=== PATIENT | male | born 1950 | race Caucasian/White ===

== ENCOUNTER → 2017-07-01 08:20 | Outpatient (CLI) | payer OTHER, SELFPAY ==
[2017-07-01 10:48] LABS: AST(SGOT) 17 U/L (15-37); Alanine Aminotransfer ALT/SGPT 26 U/L (16-61); Albumin, Serum 3.7 g/dL (3.2-5.0); Alkaline Phosphatase 44 U/L (45-117); Anion Gap 7 (5-15); BUN 9 mg/dL (7-18); BUN/Creat Ratio 11.7 RATIO (10-20); Calcium,Total 8.9 mg/dL (8.5-10.1); Chloride 106 mmol/L (98-107); Cholesterol 214 mg/dL (200); Creatinine, Serum 0.77 mg/dL (0.70-1.30); EST Glomerular Filtration Rate 108 mL/min (>60); Est Glom Filt Rate - Afr Amer 131 mL/min (>60); Globulin 3.6 g/dL (2.2-4.2); Glucose 91 mg/dL (74-106); High Density Lipoprotein 42 mg/dL; Potassium 3.7 mmol/L (3.5-5.1); Protein, Total 7.3 g/dL (6.4-8.2); Sodium Level 138 mmol/L (136-145); Triglycerides 222 mg/dL; Very Low Density Lipoprotein 44 mg/dL (5-40)
== END ==
PROVIDERS: Family Provider Family Medicine; PCP Family Medicine; Visit Provider Family Medicine
DX: I10 Essential (primary) hypertension (principal)
CPT/HCPCS: 36415; 80053; 80061

== ENCOUNTER 2017-08-16 08:30 | Outpatient (RCR) | payer OTHER, SELFPAY ==
--- NOTE | 2017-07-19 09:20 | HP.PTEVAL ---
Patient's Visit Information ISAI SOLORIO is a 66 year old M referred to Physical Therapy by Wilmar Greer with a diagnosis of Cervical Pain. Date of Evaluation: 07/19/17 Physical Therapist: Marjorie Leal - Visit Plan Frequency: 2x /Week Duration: 4 Weeks Plan: focus on scap s/s and postural correction- modality of US and manual - Subjective Subjective: Reports neck pain for over a year- insidious onset- gradually has been getting worse. Grinds in the back with movement and turning his head it cracks and is painful. Reports stiffness all the time- only painful when it pops. Worst: 08/27 Agg: working over something, turning head during driving Eases: sleeping Best: 02/27. Pain is located around C7-T1 and spreads to the shoulders. No pain radiating down the arms- Soreness in his thumbs bilateral Dr Greer things its probably OA. No N/T in the hads. Was seeing a chiropractor last year for his neck/back- [place] for about 5 years- manipulation, traction. Nothing seemed to make a difference. Sleep: not disturbed- my pillow- mainly a side sleeper. No previous trauma to neck. Has had x-rays on the neck by Dr. Greer last December. Patient reports no dizziness or blurred vision but does have CALABRESE but no changes. Takes advil daily. 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 PMHx: HTN Meds: Lisopril, Statin. Right hand dominate. - Objective Posture in both sitting and standing: FH, RS, Increased kyphosis- mild protrusion at C7-T1- can correct but unable to maintain. Palpation: tender along paraspinals from occiput to T6- with multiple trigger points along medial scapulas bilaterally, upper trap to tip of acromion. ROM: Shoulder/Elbow/Hand: WNL cervical Spine: flexion: decreased by 25% reports pulling and discomfort Extn: decreased by 25% with reports of discomfort Rotation: decrease by 50% bilateral and reports tightness SB: decreased by 50% bilaterally with reports of tightness. Strength:Cervical Isometrics: 4+/5, Shoulder: Flexion/Abd: 4+/5, IR/ER: 4/5 with discomfort and mild winging of the scapula, Elbow/Wrist/Clinical Allergist:WFL. Special Test: distraction: no change in s/s Compression: no change in s/s - Goals Goal 1:: Patinet will be I with HEP and progression Goal Time Frame: 4-6 Weeks Goal 2:: Patient will maintain proper posture t/o tx session to demo increased scap s/s. Goal Time Frame: 4-6 Weeks Goal 3:: Patient will demo increased cervical rom by 25% in each direction Goal Time Frame: 4-6 Weeks Goal 4:: Patient will report 2/10 pain for 1 week in the cervical spine - Rehabilitation Potential Physical Therapy Diagnosis: Patient presents with hypomobility- he has decreased ROM, strength and muscular endurance leading to poor posture and increased pain with ADL's. Rehabilitation Potential: Fair - Anticipated Interventions Patient/Client Instruction: Educate patient on: Benefits of Fitness Program For the Purpose of:: To improve ability to perform ADL's Therapeutic Exercise to Include: Strength training, Endurance training, Coordination, Body mechanics, Postural training, Passive ROM, Active ROM, Scapular Strength/Stabilization For the Purpose of:: To improve muscle performance and motor function Manual Therapy Techniques to Include: Soft tissue mobilization TENS: Yes Cryotherapy (ice pack, ice massage): Yes Thermo therapy (hot pack): Yes Ultrasound (thermal/non thermal): Yes For the Purpose of:: To decrease pain Thank you for the opportunity to evaluate your patient. For Medicare and Medicare HMO plans, please review the plan of care and approve it. It will need to be FAXED BACK to us at [phone] for Medicare purposes. Please let me know if there are questions or concerns regarding this plan of care. Physician Signature: Date:
--- NOTE | 2017-08-16 08:47 | HP.PTDCSUM ---
HP - PT D/C Summary It has been my pleasure to treat ISAI SOLORIO under orders from Wilmar Greer, for the diagnosis of Cervical Pain for a total of 9 visit(s). Discharge Date: Please see the following information for a summary of their discharge status. - Subjective Subjective: Patient reports that its somewhat better- doesn't feel cracking and crunching as much as before- depends on what he is doing. Gets sore when he is in one position 4/10- Painfree for most of the time. Annoying little stiffness- worst part is when he is driving looking over his left shoulder. - Pain Neck Pain Intensity (Out of 10): 3 - Overall Improvement % Improvement: 85 - Objective Objective/Function: Posture in both sitting and standing: FH, RS, Increased kyphosis- mild protrusion at C7-T1- can correct but unable to maintain. Palpation: multiple trigger points along medial scapulas bilaterally, upper trap to tip of acromion. ROM: Shoulder/Elbow/Hand: WNL cervical Spine: flexion: decreased by 25% reports pulling and discomfort Extn: decreased by 25% with reports of discomfort Rotation: decrease by 50% bilateral and reports tightness SB: decreased by 50% bilaterally with reports of tightness. Strength:Cervical Isometrics: 4+/5, Shoulder: Flexion/Abd: 5/5, IR/ER: 5/5 mild winging of the scapula, Elbow/Wrist/Corporation Secretary:WFL. Special Test: distraction: no change in s/s Compression: no change in s/s - Goals Goal 1:: Patinet will be I with HEP and progression Goal Progress: Goal Met Goal 2:: Patient will maintain proper posture t/o tx session to demo increased scap s/s. Goal Progress: Goal Met Goal 3:: Patient will demo increased cervical rom by 25% in each direction Goal Progress: Progressing Goal 4:: Patient will report 2/10 pain for 1 week in the cervical spine Goal Progress: Progressing - Plan Plan: Discharge to I HEP - D/C Information If there are questions or concerns regarding this patient's physical therapy, please feel free to call me at [phone]. Thank you for the referral of this patient. Sincerely, Marjorie Leal
== END 2017-08-16 09:09 | disposition home or self-care (01) ==
LOC: PT 08:30
PROVIDERS: Family Provider Family Medicine; PCP Family Medicine; Visit Provider Family Medicine
DX: M50.30 Other cervical disc degeneration, unspecified cervical region (principal); R25.2 Cramp and spasm
CPT/HCPCS: 97035; 97110; 97161; 97164

== ENCOUNTER → 2018-01-10 08:13 | Outpatient (CLI) | payer OTHER, SELFPAY ==
[2018-01-10 10:29] LABS: Anion Gap 10 (5-15); BUN 12 mg/dL (7-18); BUN/Creat Ratio 13.6 RATIO (10-20); Calcium,Total 8.9 mg/dL (8.5-10.1); Chloride 104 mmol/L (98-107); Cholesterol 161 mg/dL (200); Creatinine, Serum 0.88 mg/dL (0.70-1.30); EST Glomerular Filtration Rate 92 mL/min (>60); Est Glom Filt Rate - Afr Amer 112 mL/min (>60); Glucose 73 mg/dL (74-106); High Density Lipoprotein 46 mg/dL; Potassium 4.2 mmol/L (3.5-5.1); Sodium Level 143 mmol/L (136-145); Triglycerides 71 mg/dL; Very Low Density Lipoprotein 14 mg/dL (5-40)
== END ==
PROVIDERS: Family Provider Family Medicine; PCP Family Medicine; Visit Provider Family Medicine
DX: I10 Essential (primary) hypertension (principal); E78.2 Mixed hyperlipidemia
CPT/HCPCS: 36415; 80048; 80061

== ENCOUNTER → 2018-07-17 09:12 | Outpatient (CLI) | payer OTHER, SELFPAY ==
--- NOTE | 2018-07-17 09:18 | RAD_ITS ---
STUDY: X-RAY - RIGHT HAND REASON FOR EXAM: Male, 67 years old. Pain base of thumb. TECHNIQUE: 3 view(s) of the hand. COMPARISON: None. FINDINGS: There is joint space narrowing of the radiocarpal articulation consistent with degenerative arthrosis. Normal distal radioulnar joint. Normal visualized carpal bones. Normal carpal articulations There is degenerative arthrosis of the carpometacarpal (CMC) articulation of the thumb. Normal second through fifth carpometacarpal joints. There is a deformity of the fifth distal metacarpal consistent with a old fracture. Normal metacarpophalangeal joint of the thumb. Normal interphalangeal joint of the thumb. Normal proximal and distal phalanges of the thumb. Normal metacarpophalangeal joints of the second through fifth fingers. Normal proximal and distal interphalangeal joints of the second through fifth fingers. Normal phalanges of the second through fifth fingers. The soft tissue structures are unremarkable. RAD/Hand Min 3 Views IMPRESSION: Degenerative changes of the first CMC and radiocarpal joints. Electronically Signed: Anahy Orr MD at 17:17 EDT Tel , Service support ,
== END ==
PROVIDERS: Family Provider Family Medicine; PCP Family Medicine; Referring Provider Family Medicine; Visit Provider Family Medicine
DX: Z00.00 Encounter for general adult medical examination without abnormal findings (principal); M79.641 Pain in right hand
CPT/HCPCS: 73130

== ENCOUNTER → 2019-01-06 09:10 | Outpatient (CLI) | payer OTHER, SELFPAY ==
[2019-01-06 10:33] LABS: ALB/GLOB Ratio 1.3 RATIO (0.9-2.4); AST(SGOT) 17 U/L (15-37); Alanine Aminotransfer ALT/SGPT 29 U/L (16-61); Albumin, Serum 3.9 g/dL (3.2-5.0); Alkaline Phosphatase 39 U/L (45-117); Anion Gap 5 (5-15); BUN 14 mg/dL (7-18); BUN/Creat Ratio 15.9 RATIO (10-20); Chloride 106 mmol/L (98-107); Cholesterol 151 mg/dL (200); Creatinine, Serum 0.88 mg/dL (0.70-1.30); EST Glomerular Filtration Rate 92 mL/min (>60); Est Glom Filt Rate - Afr Amer 111 mL/min (>60); Glucose 99 mg/dL (74-106); High Density Lipoprotein 46 mg/dL; PSA,Total - Annual Screen 4.37 ng/mL (0.00-4.00); Potassium 3.9 mmol/L (3.5-5.1); Protein, Total 6.9 g/dL (6.4-8.2); Sodium Level 140 mmol/L (136-145); Triglycerides 122 mg/dL; Very Low Density Lipoprotein 24 mg/dL (5-40)
== END ==
PROVIDERS: Family Provider Family Medicine; PCP Family Medicine; Referring Provider Family Medicine; Visit Provider Family Medicine
DX: I10 Essential (primary) hypertension (principal); Z12.5 Encounter for screening for malignant neoplasm of prostate
CPT/HCPCS: 36415; 80053; 80061; 84153; G0103

== ENCOUNTER → 2019-07-30 15:56 | Outpatient (CLI) | payer MEDICARE, OTHER, SELFPAY ==
[2019-07-30 18:07] LABS: ALB/GLOB Ratio 1.2 RATIO (0.9-2.4); AST(SGOT) 15 U/L (15-37); Alanine Aminotransfer ALT/SGPT 34 U/L (16-61); Albumin, Serum 3.9 g/dL (3.2-5.0); Alkaline Phosphatase 41 U/L (45-117); Anion Gap 7 (5-15); BUN 11 mg/dL (7-18); BUN/Creat Ratio 12.5 RATIO (10-20); Calcium,Total 9.1 mg/dL (8.5-10.1); Chloride 101 mmol/L (98-107); Cholesterol 158 mg/dL (200); Creatinine, Serum 0.88 mg/dL (0.70-1.30); EST Glomerular Filtration Rate 92 mL/min (>60); Est Glom Filt Rate - Afr Amer 111 mL/min (>60); Globulin 3.3 g/dL (2.2-4.2); Glucose 100 mg/dL (74-106); High Density Lipoprotein 60 mg/dL; Potassium 4.3 mmol/L (3.5-5.1); Protein, Total 7.2 g/dL (6.4-8.2); Sodium Level 135 mmol/L (136-145); Triglycerides 96 mg/dL; Very Low Density Lipoprotein 19 mg/dL (5-40)
== END ==
PROVIDERS: PCP Family Medicine; Referring Provider Family Medicine; Visit Provider Family Medicine
DX: I10 Essential (primary) hypertension (principal); E78.2 Mixed hyperlipidemia; R97.20 Elevated prostate specific antigen [PSA]
CPT/HCPCS: 36415; 80053; 80061; 84153

== ENCOUNTER → 2019-10-06 | Outpatient (CLI) | payer MEDICARE, OTHER, SELFPAY ==
--- NOTE | 2019-10-06 | IMM_PTH ---
PATIENT: ISAI SOLORIO LOC: [facility] U#:[id number] AGE/SX: 68/M ROOM: RE10/06/[address]: Dr. Dilan Sahu MD : 1950 BED: DIS: 10/06/2019 SPEC #: [id number] RECD: 10/08/19 11:09 STATUS: RADHA REQ #: [id number] CAYLA: 10/06/19 00:[address]: Dilan Sahu DEPT: IMMUNOHISTOCHEMISTRY RECD BY: Vandana Acevedo ENTERED: 10/08/19 11:10 SP TYPE: IMMUNO OTHR DR: Dr. Wilmar Greer MD Tissues: C - PROSTATE RIGHT D - PROSTATE LEFT Procedures: 34BE12 (add) P40 (add) 34BE12 (initial) PHYSICIAN & INSTITUTION [place] [id number] SPECIMEN INFORMATION: Tissue Source: C - Right prostate, base, core biopsy, D - Left prostate, apex, core biopsy Clinical Info: Elevated PSA Specimen Number: [id number] C & D CPT code: 52084, 10204 x3 METHODOLOGY: Deparaffinized sections of prefer/formalin-fixed tissue or PAP/DQ stained slides are incubated with monoclonal/polyclonal antibodies/oligonucleotide probes. Localization is made via biotin free immunoperoxidase method. Appropriate controls are performed and reacted as expected. Results on target cell population are indicated in the following table: RESULTS: ANTIBODY / CLONE RESULT Block C P40 (BC28) negative 34BE12 (34BE12) negative Block D P40 (BC28) positive 34BE12 (34BE12) positive These tests were developed and their performance characteristics determined by [facility]. They may not have been cleared or approved by the U.S. Food and Drug Administration. The FDA has determined that such clearance or approval is not necessary. The above immunohistochemical/dualISH markers are ordered and reviewed by the Pathologist. INTERPRETATION: C. Right prostate, base, core biopsy: A few foci of atypical small acinar proliferation (MANUEL). See comment. D. Left prostate, apex, core biopsy: Negative for adenocarcinoma. Comment:: Atypical foci consist of 2-3 glands. SJ:demarco 10/09/19
--- NOTE | 2019-10-06 15:15 | PROSBIL_PTH ---
PATIENT: ISAI SOLORIO LOC: [facility] U#:[id number] AGE/SX: 68/M ROOM: RE10/06/[address]: Dr. Dilan Sahu MD : 1950 BED: DIS: 10/06/2019 SPEC #: [id number] RECD: 10/06/19 16:13 STATUS: RADHA RERichi #: [id number] CAYLA: 10/06/19 15:[address]: Dilan Sahu DEPT: SURGICAL PATHOLOGY RECD BY: Jer Gutierrez ENTERED: 10/07/19 08:53 SP TYPE: PROST BX KAYLA DR: Dr. Wilmar Greer MD Tissues: A - PROSTATE RIGHT B - PROSTATE RIGHT C - PROSTATE RIGHT D - PROSTATE LEFT E - PROSTATE LEFT F - PROSTATE LEFT Procedures: PROSTATE BX HEADER OPERATION: Prostate biopsy PRE-OP DIAGNOSIS: Elevated PSA TISSUE SUBMITTED: A - Right apex, B - Right mid, C - Right base, D - Left apex, E - Left mid, F - Left base MICROSCOPIC DIAGNOSIS A. Right prostate, apex, core biopsy: Prostatic tissue, negative for malignancy. Focal mild chronic inflammation. B. Right prostate, mid, core biopsy: Prostatic tissue, negative for malignancy. C. Right prostate, base, core biopsy: Focal atypical small acinar proliferation (MANUEL). See comment. D. Left prostate, apex, core biopsy: Prostatic tissue, negative for malignancy. See comment. E. Left prostate, mid, core biopsy: Prostatic tissue, negative for malignancy. F. Left prostate, base, core biopsy: Prostatic adenocarcinoma. Fab grade: 3+3=6 Number of cores involved: 1/2 Proportion of tissue involved: 50% Perineural invasion: Not identified. Greatest tumor length: 1 cm Focal high-grade prostatic intraepithelial neoplasia (HGPIN). SJ:demarco 10/08/19 COMMENT C. The atypical foci consist of two to three glands. Immunohistochemistry ([id number]) supports the above diagnosis. D. Immunohistochemistry ([id number]) supports the above diagnosis. MICROSCOPIC DESCRIPTION Slides are reviewed. GROSS DESCRIPTION A - Received is one container designated prostate, right apex. The specimen consists of two elongated fragments of light bobo-white soft tissue each measuring 1.5 cm in length and 0.1 cm in diameter. The specimen is totally submitted in one cassette. B - Received is one container designated prostate, right mid. The specimen consists of two elongated fragments of light bobo-white soft tissue each measuring 1.5 cm in length and 0.1 cm in diameter. The specimen is totally submitted in one cassette. C - Received is one container designated prostate, right base. The specimen consists of two elongated fragments of light bobo-white soft tissue each measuring 1.3 cm in length and 0.1 cm in diameter. The specimen is totally submitted in one cassette. D - Received is one container designated prostate, left apex. The specimen consists of two elongated fragments of light bobo-white soft tissue measuring 1 and 1.2 cm in length and 0.1 cm in diameter. The specimen is totally submitted in one cassette. E - Received is one container designated prostate, left mid. The specimen consists of three elongated fragments of light bobo-white soft tissue measuring 0.5 to 1.8 cm in length and 0.1 cm in diameter. The specimen is totally submitted in one cassette. F - Received is one container designated prostate, left base. The specimen consists of two elongated fragments of light bobo-white soft tissue each measuring 1.3 cm in length and 0.1 cm in diameter. The specimen is totally submitted in one cassette. / SJ:rg 10/07/19 TC:0 CPT: G0146
== END | disposition home or self-care (01) ==
LOC: LABSPEC 16:21
PROVIDERS: PCP Family Medicine; Referring Provider Urology; Visit Provider Urology
DX: R97.20 Elevated prostate specific antigen [PSA] (principal)
CPT/HCPCS: 88305; 88341; 88342; G0416

== ENCOUNTER → 2020-01-18 09:29 | Outpatient (CLI) | payer MEDICARE, OTHER, SELFPAY ==
[2020-01-19 09:00] LABS: Anion Gap 5 (5-15); BUN 12 mg/dL (7-18); BUN/Creat Ratio 13.8 RATIO (10-20); Calcium,Total 9.1 mg/dL (8.5-10.1); Chloride 107 mmol/L (98-107); Cholesterol 156 mg/dL (200); Creatinine, Serum 0.87 mg/dL (0.70-1.30); EST Glomerular Filtration Rate 93 mL/min (>60); Est Glom Filt Rate - Afr Amer 113 mL/min (>60); Glucose 97 mg/dL (74-106); High Density Lipoprotein 41 mg/dL; Potassium 4.1 mmol/L (3.5-5.1); Sodium Level 140 mmol/L (136-145); Triglycerides 118 mg/dL; Very Low Density Lipoprotein 24 mg/dL (5-40)
== END ==
PROVIDERS: PCP Family Medicine; Referring Provider Family Medicine; Visit Provider Urology
DX: I10 Essential (primary) hypertension (principal); E78.2 Mixed hyperlipidemia; C61 Malignant neoplasm of prostate
CPT/HCPCS: 36415; 80048; 80061; 84153

== ENCOUNTER → 2020-07-14 09:00 | Outpatient (CLI) | payer MEDICARE, OTHER, SELFPAY ==
[2020-07-14 10:58] LABS: PSA,Total- Diagnostic 5.26 ng/mL (0.0-4.0)
[2020-07-14 11:01] LABS: ALB/GLOB Ratio 1.1 RATIO (0.9-2.4); AST(SGOT) 16 U/L (15-37); Alanine Aminotransfer ALT/SGPT 33 U/L (16-61); Albumin, Serum 3.7 g/dL (3.2-5.0); Alkaline Phosphatase 52 U/L (45-117); Anion Gap 7 (5-15); BUN 12 mg/dL (7-18); BUN/Creat Ratio 15.4 RATIO (10-20); Calcium,Total 8.9 mg/dL (8.5-10.1); Chloride 105 mmol/L (98-107); Cholesterol 162 mg/dL (200); Creatinine, Serum 0.78 mg/dL (0.70-1.30); EST Glomerular Filtration Rate 106 mL/min (>60); Est Glom Filt Rate - Afr Amer 128 mL/min (>60); Globulin 3.4 g/dL (2.2-4.2); Glucose 101 mg/dL (74-106); High Density Lipoprotein 48 mg/dL; Potassium 4.1 mmol/L (3.5-5.1); Protein, Total 7.1 g/dL (6.4-8.2); Sodium Level 139 mmol/L (136-145); Triglycerides 135 mg/dL; Very Low Density Lipoprotein 27 mg/dL (5-40)
== END ==
PROVIDERS: Urology; PCP Family Medicine; Referring Provider Family Medicine; Visit Provider Family Medicine
DX: R97.20 Elevated prostate specific antigen [PSA] (principal); E78.2 Mixed hyperlipidemia
CPT/HCPCS: 36415; 80053; 80061; 84153

== ENCOUNTER → 2021-01-18 10:28 | Outpatient (CLI) | payer MEDICARE, OTHER, SELFPAY ==
[2021-01-18 12:44] LABS: PSA,Total- Diagnostic 5.36 ng/mL (0.0-4.0)
[2021-01-18 12:59] LABS: Anion Gap 6 (5-15); BUN 17 mg/dL (7-18); BUN/Creat Ratio 18.5 RATIO (10-20); Calcium,Total 9.1 mg/dL (8.5-10.1); Chloride 105 mmol/L (98-107); Cholesterol 129 mg/dL (200); Creatinine, Serum 0.92 mg/dL (0.70-1.30); EST Glomerular Filtration Rate 87 mL/min (>60); Est Glom Filt Rate - Afr Amer 106 mL/min (>60); Glucose 96 mg/dL (74-106); High Density Lipoprotein 49 mg/dL; Potassium 4.4 mmol/L (3.5-5.1); Sodium Level 141 mmol/L (136-145); Triglycerides 89 mg/dL; Very Low Density Lipoprotein 18 mg/dL (5-40)
== END ==
PROVIDERS: PCP Family Medicine; Referring Provider Family Medicine; Visit Provider Urology
DX: C61 Malignant neoplasm of prostate (principal); E78.2 Mixed hyperlipidemia; I10 Essential (primary) hypertension
CPT/HCPCS: 36415; 80048; 80061; 84153

== ENCOUNTER → 2021-07-25 | Outpatient (CLI) | payer MEDICARE, OTHER, SELFPAY ==
[2021-07-25 12:48] LABS: PSA,Total - Annual Screen 5.49 ng/mL (0.00-4.00)
[2021-07-26 13:41] LABS: PSA,Total- Diagnostic 5.49 ng/mL (0.0-4.0)
== END | disposition home or self-care (01) ==
LOC: MFPLAB 10:27
PROVIDERS: PCP Family Medicine; Referring Provider Family Medicine; Visit Provider Urology
DX: C61 Malignant neoplasm of prostate (principal); R97.20 Elevated prostate specific antigen [PSA]
CPT/HCPCS: 36415; 84153; G0103

== ENCOUNTER → 2022-01-23 | Outpatient (CLI) | payer MEDICARE, OTHER, SELFPAY ==
[2022-01-23 12:42] LABS: PSA,Total- Diagnostic 5.47 ng/mL (0.0-4.0)
[2022-01-23 12:48] LABS: ALB/GLOB Ratio 1.3 RATIO (0.9-2.4); AST(SGOT) 22 U/L (15-37); Alanine Aminotransfer ALT/SGPT 43 U/L (16-61); Albumin, Serum 3.9 g/dL (3.2-5.0); Alkaline Phosphatase 43 U/L (45-117); Anion Gap 2 (5-15); BUN 17 mg/dL (7-18); BUN/Creat Ratio 21.9 RATIO (10-20); Calcium,Total 9.2 mg/dL (8.5-10.1); Chloride 105 mmol/L (98-107); Cholesterol 195 mg/dL (200); Creatinine, Serum 0.78 mg/dL (0.70-1.30); EST Glomerular Filtration Rate 106 mL/min (>60); Est Glom Filt Rate - Afr Amer 128 mL/min (>60); Globulin 2.9 g/dL (2.2-4.2); Glucose 106 mg/dL (74-106); High Density Lipoprotein 58 mg/dL; Potassium 4.7 mmol/L (3.5-5.1); Protein, Total 6.8 g/dL (6.4-8.2); Sodium Level 138 mmol/L (136-145); Triglycerides 73 mg/dL; Very Low Density Lipoprotein 15 mg/dL (5-40)
== END | disposition home or self-care (01) ==
LOC: MFPLAB 10:39
PROVIDERS: PCP Family Medicine; Visit Provider Urology
DX: C61 Malignant neoplasm of prostate (principal); E78.2 Mixed hyperlipidemia
CPT/HCPCS: 36415; 80053; 80061; 84153

== ENCOUNTER → 2022-07-23 | Outpatient (CLI) | payer MEDICARE, OTHER, SELFPAY ==
[2022-07-23 10:52] LABS: Color, Urine Red (Yellow); Glucose, Dipstick Normal (Normal); Ketone-Dipstick Negative (Negative); Leukocyte Esterase-Dipstick 100 /ul (Negative); Nitrite-Dipstick Negative (Negative); Occult Blood-Urine 250 /ul (Negative); Protein-Dipstick 100 mg/dl (Negative); Specific Gravity, Urine 1.005 (1.002-1.030); Urine Bilirubin Dipstick Negative (Negative); Urine Clarity Cloudy (Clear); Urine Urobilinogen Normal (Normal)
[2022-07-23 11:15] LABS: ALB/GLOB Ratio 1.2 RATIO (0.9-2.4); AST(SGOT) 15 U/L (15-37); Alanine Aminotransfer ALT/SGPT 24 U/L (16-61); Albumin, Serum 3.8 g/dL (3.2-5.0); Alkaline Phosphatase 40 U/L (45-117); Anion Gap -6 (5-15); BUN 11 mg/dL (7-18); BUN/Creat Ratio 16.2 RATIO (10-20); Calcium,Total 8.7 mg/dL (8.5-10.1); Chloride 109 mmol/L (98-107); Cholesterol 157 mg/dL (200); Creatinine, Serum 0.68 mg/dL (0.70-1.30); EST Glomerular Filtration Rate 123 mL/min (>60); Est Glom Filt Rate - Afr Amer 149 mL/min (>60); Globulin 3.1 g/dL (2.2-4.2); Glucose 111 mg/dL (74-106); High Density Lipoprotein 41 mg/dL; PSA,Total- Diagnostic 6.39 ng/mL (0.0-4.0); Potassium 3.5 mmol/L (3.5-5.1); Protein, Total 6.9 g/dL (6.4-8.2); Sodium Level 131 mmol/L (136-145); Triglycerides 132 mg/dL; Very Low Density Lipoprotein 26 mg/dL (5-40)
== END | disposition home or self-care (01) ==
LOC: MTLAB 08:53
PROVIDERS: PCP Family Medicine; Referring Provider Family Medicine; Visit Provider Family Medicine
DX: E78.2 Mixed hyperlipidemia (principal); C61 Malignant neoplasm of prostate; I10 Essential (primary) hypertension; R31.0 Gross hematuria
CPT/HCPCS: 36415; 80053; 80061; 81002; 84153; 87086; 87088

== ENCOUNTER → 2022-08-06 | Outpatient (CLI) | payer MEDICARE, OTHER, SELFPAY ==
--- NOTE | 2022-08-06 15:50 | CT_ITS ---
INDICATION: GROSS HEMATURIA EXAMINATION: CT ABDOMEN AND PELVIS WITH AND WITHOUT CONTRAST - CT Abdomen And Pelvis WO/W Contrast Injection TECHNIQUE: Helically acquired images were obtained of the abdomen and pelvis both before and after IV contrast. A radiation dose optimization technique was used for this scan. IV Contrast dosage and agent: 100 cc of Isovue-300. Oral contrast: None. RADIATION DOSAGE (If Supplied By Facility): CTDIvol = ( 18.91 ) mGy, DLP = ( 2533.71 ) mGycm COMPARISON: FINDINGS: LOWER CHEST: Calcified right middle lobe nodule. 3 cm right pericardial density mass/cyst . LIVER: Homogeneous. No focal mass. GALLBLADDER AND BILIARY TREE: No calcified gallstones. No gallbladder distension or wall edema. No intra- or extrahepatic biliary ductal dilation. PANCREAS: No focal cystic or solid mass. SPLEEN: Normal size without focal cystic or solid mass. ADRENAL GLANDS: No nodules. KIDNEYS AND URETERS: 3 cm is aphasic cyst in the lateral aspect of the left kidney appears to be simple. No evidence of ureteral stones. No evidence of hydronephrosis. PERITONEUM: No ascites or free air. No other fluid collection. BOWEL: Normal caliber small bowel loops. No evidence of acute diverticulitis. The appendix is not identified. LYMPH NODES: No enlarged mesenteric or retroperitoneal lymph nodes. VESSELS: Aorta is non-dilated. URINARY BLADDER: Mild circumferential thickening of the bladder wall could be due to underdistention. REPRODUCTIVE ORGANS: Prominent prostate. No pelvic mass. ABDOMINAL WALL: Very small umbilical hernia containing fat. BONES: Degenerative changes in the lower lumbar spine. CT/CT Abd/Pelvis W/WO Contrast IMPRESSION: 1. No evidence of urinary tract stones or hydronephrosis. 2. Mild circumferential thickening of the bladder wall could be due to underdistention. 3. Right pericardial low-density mass probably could represent pericardial cyst. Follow-up CT scan of the chest in 3 months is recommended 4. Prostatomegaly. Correlation with PSA level is recommended. 5. Very small umbilical hernia and small bilateral inguinal hernias containing fat. 6. No focal inflammatory process. Electronically Signed: Eris King MD at 9:02 EDT ,
== END | disposition home or self-care (01) ==
LOC: CT 15:48
PROVIDERS: PCP Family Medicine; Referring Provider Urology; Visit Provider Urology
DX: C61 Malignant neoplasm of prostate (principal); R31.0 Gross hematuria
CPT/HCPCS: 74178; Q9967

== ENCOUNTER 2022-08-23 07:50 | Emergency (ER) | payer MEDICARE, OTHER, SELFPAY ==
[2022-08-23 07:52] VITALS: BP 159/90; PULSE 87; RESP 18; TEMP 35.9; O2SAT 98; BMI 29.2
--- NOTE | 2022-08-23 08:11 | EX.ED.GUMALE ---
HPI History of Present Illness Chief Complaint: Complaint Informant: patient Narrative Narrative: Patient presents with urinary symptoms. Patient states that beginning of July he had some blood in the urine. He is not on any anticoagulation including no baby aspirin. He saw Dr. Sahu who did a CAT scan of the abdomen. I reviewed this outpatient CT study. It showed thickening of the bladder. He had a cystoscopy a little over a week ago. Biopsy showed some bladder cancer. He has surgery scheduled for the first few days of September. Ever since he has had the cystoscopy, he has had progressively more difficulty passing urine. He states he goes frequently and dribbles. It has been burning ever since the procedure. He thought the burning would go away but it has not. No fevers. No chills. No nausea vomiting. He is not having blood in the urine anymore. He is not having pain in the bladder but he still feels like he does not fully empty. He also does have a history of BPH and localized prostate cancer that is being watched. [facility] Medical History (Updated 08/23/22 @ 10:[address] Lew Begum MD) Prostate CA Home Medications cephalexin 500 mg capsule 500 mg PO Q8H #30 CAPSULES 08/23/22 [Rx Last Taken Unknown] Allergy/AdvReac Type Severity Reaction Status Date / Time Seasonal Allergies: Uncoded Allergy Mild Other Verified 08/23/22 07:57 Social History Smoking Status: Former smoker ROS ROS ED ROS Narrative A complete review of systems was performed and is negative except as documented in the history of present illness. Some specific details below. Constitutional: No recent fevers or chills. ENT: No difficulty swallowing. No swelling. No pain. No GERD. CV: No chest pain or palpitations. No lightheadedness or near syncope. Respiratory: No dyspnea. No hemoptysis. No difficulty taking breaths. GI: He is eating and drinking and moving his bowels normally. No nausea. : See history of present illness Musculoskeletal: No recent trauma. No pains. No back pains or flank pains. Skin: No rash. Nondiaphoretic. Neuro: No weakness or numbness. Endocrine: No polyuria or polydipsia. EXAM Physical Exam Narrative Exam Narrative: CONSTITUTIONAL: Patient is nontoxic in appearance. The patient looks comfortable. HEENT: No notable trauma. Mucous membranes moist. No sinus tenderness. No indication of pain with swallowing. EYES: No conjunctival injection. No proptosis. CARDIOVASCULAR: Regular rate. Regular rhythm. No notable murmur. No JVD. RESPIRATORY: No respiratory distress. Breathing is unlabored. No wheezes. No rhonchi. No rales. No pain with a deep breath. GASTROINTESTINAL: Not distended. Bowel sounds are normal. No tenderness. No guarding. No rebound. No palpable mass. No bruit. I am not able to definitively feel an enlarged bladder. GENITOURINARY: No tenderness over the bladder. No CVA tenderness. No inguinal swelling or sign of hernia. MUSCULOSKELETAL: Atraumatic. No peripheral edema. No cord. No tenderness along the deep venous system. No asymmetry. NEUROLOGICAL: Patient is alert and appropriate. No focal deficit is appreciated. SKIN: No noted rashes. No diaphoresis. No pallor or petechiae. PSYCHIATRIC: Patient is calm. Mood is appropriate. Const Vital Signs: 08/23/22 07:52 Temperature 96.7 F L Temperature Source Temporal Pulse Rate 87 Respiratory Rate 18 Blood Pressure 159/90 H Blood Pressure Mean 113 Pulse Ox 98 Oxygen Delivery Method Room Air MDM MDM MDM Narrative Medical decision making narrative: Patient had a bladder scan of only about 138 cc. This was scanned multiple times and all came up with in about 10 or 15 cc of that reading. He then went to the bathroom and just urinated 100 cc. So it appears as though he is emptying his bladder well. Since he has no pressure no distention no palpable bladder at this point I am not putting in a catheter. Patient has gone to the bathroom well. He states he has not been urinating this well in a while. Patient CBC showed minimally low hemoglobin which is nonspecific. His white count is normal. Patient's electrolytes are normal other than a trace elevation of glucose at 110. Renal function is preserved. Patient's urinalysis is cloudy with 10-25 white cells. Considering he has some dysuria urgency frequency and this white cell finding in his urine, we will treat him. I have also sent off a culture. If he develops high fevers vomiting trouble urinating he should return. But since he is passing urine well I do not think he needs a catheter at this time. He will follow-up with his urologist as scheduled. Lab Data Attestation: I reviewed the patient's lab results. Labs: Laboratory Results - last 24 hr 08/23/22 08/23/22 08:20 08:40 WBC 8.3 RBC 4.32 L Hgb 12.8 L Hct 37.8 L MCV 87.5 MCH 29.6 MCHC 33.9 RDW Std Deviation 41.0 RDW Coeff of Zane 12.8 Plt Count 300 MPV 9.0 Immature Gran % (Auto) 0.500 Neut % (Auto) 71.4 H Lymph % (Auto) 13.7 L Nash % (Auto) 10.2 H Eos % (Auto) 3.4 Baso % (Auto) 0.8 Absolute Neuts (auto) 6.0 Absolute Lymphs (auto) 1.14 Nucleated RBC % 0 Differential Comment SCANNED Sodium 140 Potassium 3.5 Chloride 104 Carbon Dioxide 27.0 Anion Gap 9 BUN 6 L Creatinine 0.75 Estim Creat Clear Calc 71.99 Est GFR (MDRD) Af Amer 132 Est GFR (MDRD) Non-Af 109 BUN/Creatinine Ratio 8.0 L Glucose 110 H Calcium 8.7 Urine Color Yellow Urine Clarity Sl. Cloudy Urine pH 7.0 Ur Specific [place] 1.010 Urine Protein 30 H Urine Glucose (UA) Normal Urine Ketones Negative Urine Occult Blood 25 H Urine Nitrite Negative Urine Bilirubin Negative Urine Urobilinogen 1 H Ur Leukocyte Esterase 25 H Urine RBC 0-5 SEEN Urine WBC 10-25 SEEN Ur Squamous Epith Cells 0 SEEN Urine Bacteria RARE Urine Mucus 0 SEEN Discharge Plan Triage Chief Complaint: Complaint ED Provider: Lew Begum Dx/Rx/DC Orders Clinical Impression: Urinary tract infection Instructions: ED Urinary Tract Infections in Men Prescriptions: New cephalexin [cephalexin] 500 mg capsule 500 mg PO Q8H Qty: 30 0RF Primary Care Provider: Jose Greer Referrals: Jose Greer MD [Primary Care Provider] - Dilan Sahu MD [Med Staff - Active Staff] - 5-7 Days Disposition Disposition: Home, Self Care
[2022-08-23] MEDS: 0.9% Normal Saline 1,000 ML 1000 ML IV (08:25)
[2022-08-23 08:30] LABS: Absolute Lymphocyte Count 1.14 X10^3/uL (0.83-4.51); Basophil# 0.07 X10^3/uL; Basophil% 0.8 % (0-1); Eosinophil# 0.28 X10^3/uL; Eosinophils% 3.4 % (0-5); Hematocrit 37.8 % (40-54); Hemoglobin 12.8 g/dL (13.0-16.5); Lymphocyte # 1.14 X10^3/ul (0.83-4.51); Lymphocyte % 13.7 % (19-41); Mean Corp Hgb Conc 33.9 g/dL (32-36); Mean Corpuscular Hgb 29.6 pg (27.0-32.0); Mean Corpuscular Volume 87.5 fL (80-94); Monocyte# 0.85 X10^3/uL; Monocyte% 10.2 % (0-10); NRBC Flagged by Analyzer 0 % (0-5); Neutrophil # 5.95 X10^3/uL (2.7-7.7); Neutrophil % 71.4 % (47-70); POSITIVE MORPHOLOGY YES; Platelet Count 300 K/mm3 (150-450); RBC Distribution Width CV 12.8 % (11.6-14.6); Red Blood Count 4.32 M/mm3 (4.6-6.2); White Blood Count 8.3 K/mm3 (4.4-11.0)
[2022-08-23 08:33] LABS: Differential Indicated SCAN CRITERIA MET
[2022-08-23 08:42] LABS: Anion Gap 9 (5-15); BUN 6 mg/dL (7-18); Calcium,Total 8.7 mg/dL (8.5-10.1); Chloride 104 mmol/L (98-107); Creatinine, Serum 0.75 mg/dL (0.70-1.30); EST Glomerular Filtration Rate 109 mL/min (>60); Est Glom Filt Rate - Afr Amer 132 mL/min (>60); Estimated Creatinine Clearance 71.99 ml/min; Glucose 110 mg/dL (74-106); Potassium 3.5 mmol/L (3.5-5.1); Sodium Level 140 mmol/L (136-145)
[2022-08-23 08:44] LABS: Mucous, Urine 0 SEEN /hpf (<or=2+); Squamous Epithelial Cells - UA 0 SEEN /hpf (0-5)
[2022-08-23 08:44] LABS: Differential Comment SCANNED
[2022-08-23 08:50] LABS: Color, Urine Yellow (Yellow); Glucose, Dipstick Normal (Normal); Ketone-Dipstick Negative (Negative); Leukocyte Esterase-Dipstick 25 /ul (Negative); Nitrite-Dipstick Negative (Negative); Occult Blood-Urine 25 /ul (Negative); Protein-Dipstick 30 mg/dl (Negative); Urine Bilirubin Dipstick Negative (Negative); Urine Clarity Sl. Cloudy (Clear); Urine Urobilinogen 1 mg/dl (Normal)
[2022-08-23 09:07] LABS: Bacteria RARE /hpf (None Seen); Red Blood Cells-Urine 0-5 SEEN /hpf (0-5); White Blood Cells 10-25 SEEN /hpf (0-5)
[2022-08-23] MEDS: Cephalexin 250 MG Capsule 500 MG PO (10:35)
[2022-08-23 10:40] VITALS: BP 140/76
== END 2022-08-23 10:43 | disposition home or self-care (01) ==
PROVIDERS: Emergency Provider Emergency Medicine; PCP Family Medicine; Visit Provider Emergency Medicine
DX: N39.0 Urinary tract infection, site not specified (principal); R30.9 Painful micturition, unspecified; Z87.891 Personal history of nicotine dependence
CPT/HCPCS: 80048; 81001; 85025; 87077; 87086; 87088; 87186; 96360; 96361; 99284; J7030; A4216

== ENCOUNTER 2022-09-19 08:11 | Day surgery (SDC) | payer MEDICARE, OTHER, SELFPAY ==
[2022-09-19] VITALS (9 sets, daily range): BP systolic 133–163; BP diastolic 78–99; PULSE 64–89; RESP 16; TEMP 36.3–37.1; O2SAT 94–98; BMI 29.1
--- NOTE | 2022-09-19 08:01 | HP.PCM_ITS ---
History and Physical Date of Admission: 09/19/22 CC/HPI: 71 year old male with history of prostate cancer and hematuria presents for follow up Prostate cancer diagnosed in 2019: Mcintosh 6 (3+3), active surveillance. Current PSA is 6.39 In the beginning of July he had hematuria, then noticed some discharge after urination Symptoms improved on their own and he has not noticed any hematuria since then Denies any abdominal and back pain, denies burning with urination Currently having intermittent aches in his testicles. When he urinates it feels like something is pulling on his testicles and he gets a pinching feeling CT scan done on 08/06/22 readings showed: calcified right middle lobe nodule, 3cm right pericardial density mass/cyst, 3cm aphasic cyst in lateral aspect of left kidney, mild circumferential thickening of the bladder wall could be due to under distension, and prominent prostate. Will get a cysto today ALLERGIES: None MEDICATIONS: Atorvastatin Calcium 10 mg tablet Lisinopril 40 mg tablet tablet Notes: OTC eye drops. Had both covid vaccines PAST SURGICAL HISTORY: Colonoscopy - about 2018 Hernia Repair Pneumococcal Vaccine Admin Prostate Needle Biopsy - 2019 Transrectal Biopsy US - 2019 PAST MEDICAL HISTORY: Elevated prostate specific antigen [PSA] - 07/31/2022, - 01/30/2022, - 08/01/2021, - 01/24/2021, - 2019 Gross hematuria - 07/31/2022 Malignant neoplasm of prostate, Right - 07/31/2022, Right, - 01/30/2022, Right, - 08/01/2021, Right, - 01/24/2021, Right, - 2019 ? Histology/Primary Site: Adenocarcinoma, no subtype, low grade (morphologic abnormality), Malignant neoplasm of prostate ? Mcintosh Score: 6 ? Clinical Staging: [id number], Stage I, Staged by: Managing physician ? Behaviour, Grade: Malignant, primary site ? Laterality: Unilateral ? Provider at the office diagnosed the cancer Benign prostatic hyperplasia without lower urinary tract symptoms - 08/01/2021, - 01/24/2021, - 2019 Essential (primary) hypertension Mixed hyperlipidemia Unspecified hearing loss, unspecified ear Unspecified osteoarthritis, unspecified site Unspecified visual loss [facility] Notes: eye problems, seeing a retinal specialist. Immunizations: None FAMILY HISTORY: None SOCIAL HISTORY: Marital Status: Single Preferred Language: Greenlandic; Ethnicity: Not Or ; Race: White Current Smoking Status: Patient has never smoked. Tobacco Use Assessment Completed: Used Tobacco in last 30 days? Does not use smokeless tobacco. Social Drinker. Does not use drugs. Drinks 3 caffeinated drinks per day. Has not had a blood transfusion. REVIEW OF SYSTEMS: Constitutional: Patient denies fever, chills, weight loss, and weight gain. Cardiovascular: Patient denies pacemaker/defib, irregular heartbeat, chest pains, and swollen ankles. Respiratory: Patient denies shortness of breath, wheezing, oxygen, and cpap machine. Genitourinary: Patient denies frequent urination, urinary retention, get up at night to void, urinary incontinence, painful urination, blood in the urine, frequent uti's, history of stones, difficulty starting stream, weak stream/scanty, and bedwetting. VITAL SIGNS: 08/13/2022 02:51 PM Weight 207 lb / 93.89 kg Height 71 in / 180.34 cm BP 122/70 mmHg BMI 28.9 kg/m? - BMI Counseling was provided. PHYSICAL EXAM: Constitutional: Well-nourished. No physical deformities. Normally developed. Good grooming. Neck: Neck symmetrical, not swollen. Normal tracheal position. Respiratory: No labored breathing, no use of accessory muscles. Cardiovascular: Normal temperature, normal extremity pulses, no swelling, no varicosities. Lymphatic: No enlargement of neck, axillae, groin. Skin: No paleness, no jaundice, no cyanosis. No lesion, no ulcer, no rash. Neurologic / Psychiatric: Oriented to time, oriented to place, oriented to person. No depression, no anxiety, no agitation. Gastrointestinal: No mass, no tenderness, no rigidity, non obese abdomen. Eyes: Normal conjunctivae. Normal eyelids. Ears, Nose, Mouth, and Throat: Left ear no scars, no lesions, no masses. Right ear no scars, no lesions, no masses. Nose no scars, no lesions, no masses. Normal hearing. Normal lips. Scrotum: No lesions. No edema. No cysts. No warts. Musculoskeletal: Normal gait and station of head and neck. Epididymides: Right: no spermatocele, no masses, no cysts, no tenderness, no induration, no enlargement. Left: no spermatocele, no masses, no cysts, no tenderness, no induration, no enlargement. Testes: No tenderness, no swelling, no enlargement left testes. No tenderness, no swelling, no enlargement right testes. Normal location left testes. Normal location right testes. No mass, no cyst, no varicocele, no hydrocele left testes. No mass, no cyst, no varicocele, no hydrocele right testes. Urethral Meatus: Normal size. No lesion, no wart, no discharge, no polyp. Normal location. Penis: Circumcised, no warts, no cracks. No dorsal Peyronie's plaques, no left corporal Peyronie's plaques, no right corporal Peyronie's plaques, no scarring, no warts. No balanitis, no meatal stenosis. Complexity of Data: Source Of History: Patient Lab Test Review: PSA Records Review: Previous Patient Records Urine Test Review: Urinalysis X-Ray Review: C.T. Abdomen/Pelvis: Reviewed Films. Reviewed Report. Discussed With Patient. 07/23/22 01/23/22 07/26/21 07/25/21 01/18/21 07/14/20 01/18/20 07/30/19 PSA Total PSA 6.39 ng/mL 5.47 ng/mL 5.49 ng/mL 5.49 ng/mL 5.36 ng/mL 5.26 ng/mL 5.00 ng/mL 5.30 Notes Order Date: 01/31/22 Order Info: [id number] - CMP Order Info: [id number] - LIPID DR OCASIO ORDERED CMP AND LIPID DR VANCE ORDERED PSAD [facility] [address] [place] [address]. [place], [place], [id number] This test was performed using the TPSA assay method for the [employer] system. Values obtained with different assay methods cannot be used interchangably. When changing PSA assays in the course of monitoring a patient, additional sequential testing should be carried out to confirm baseline values. [facility] [address] [place], [place] [address]. [place], [place], [id number] This test was performed using the TPSA assay method for the [employer] system. Values obtained with different assay methods cannot be used interchangably. When changing PSA assays in the course of monitoring a patient, additional sequential testing should be carried out to confirm baseline values. [facility] [address] [place], [place], [id number] This test was performed using the TPSA assay method for the [employer] system. Values obtained with different assay methods cannot be used interchangably. When changing PSA assays in the course of monitoring a patient, additional sequential testing should be carried out to confirm baseline values. [facility] [address] [place], [place], [id number] This test was performed using the TPSA assay method for the [employer] system. Values obtained with different assay methods cannot be used interchangably. When changing PSA assays in the course of monitoring a patient, additional sequential testing should be carried out to confirm baseline values. [facility] [address] [place], [address] This test was performed using the TPSA assay method for the [employer] system. Values obtained with different assay methods cannot be used interchangably. When changing PSA assays in the course of monitoring a patient, additional sequential testing should be carried out to confirm baseline values. [facility] [address] [place], [place], [id number] This test was performed using the TPSA assay method for the [employer] system. Values obtained with different assay methods cannot be used interchangably. When changing PSA assays in the course of monitoring a patient, additional sequential testing should be carried out to confirm baseline values. [facility] [address] [place] [address] [place], [address] This test was performed using the TPSA assay method for the [employer] system. Values obtained with different assay methods cannot be used interchangably. When changing PSA assays in the course of monitoring a patient, additional sequential testing should be carried out to confirm baseline values. PROCEDURES: Flexible Cystoscopy - 54900 Risks, benefits, and some of the potential complications of the procedure were discussed at length with the patient including infection, bleeding, voiding discomfort, urinary retention, fever, chills, sepsis, and others. All questions were answered. Informed consent was obtained. Antibiotic prophylaxis was given. Sterile technique and intraurethral analgesia were used. Meatus: Normal size. Normal location. Normal condition. Urethra: No strictures. External Sphincter: Normal. Verumontanum: Normal. Prostate: Obstructing. Moderate hyperplasia. Bladder Neck: Non-obstructing. Ureteral Orifices: Normal location. Normal size. Normal shape. Effluxed clear urine. Bladder: 2 1/2 cm tumor. Solitary tumor. No trabeculation. Normal mucosa. No stones. Given antibiotic 1 dose per protocol ASSESSMENT: ICD-10 Details 1 Gross hematuria - R31.0 Acute, Systemic Symptoms 2 Malignant neoplasm of prostate - C61 Chronic, Stable 3 Elevated prostate specific antigen [PSA] - R97.20 Chronic, Stable PLAN: Document Letter(s): Created for Patient: Clinical Summary Notes: Reviewed CT scan with patient and educated him on results. He was referred to cardiology for pericardial findings. Educated patient that on the CT scan there is a spot in the bladder that could be a tumor and needs to be further evaluated, he will get a cysto done in office today, which showed and tumor base of bladder. Set up for TURBT medium at [facility] with mitomycin C
--- NOTE | 2022-09-19 08:02 | DCINST_ITS ---
Discharge Instructions Diet Discharge Diet: No restrictions Activity Discharge Activity: Return to Normal Activity and May Not Drive (while taking narcotic pain medications.) Dressing / Incision Call your doctor if you observe: Fever of 101 or Higher Follow Up Care Please Follow Up With: Dilan Sahu MD When: Call [phone] for an appointment Test Results: Test results from this visit will be discussed in further detail at your follow- up appointment, if applicable. Discharge Plan Admission Primary Reason for Your Visit: TURBT Attending Provider: Dilan Sahu Primary Care Provider: Jose Greer Instructions Patient Instructions: Bladder Cancer TUR, Transurethral Bladder Tumor Dc Discharge Orders/Prescriptions Prescriptions: New ciprofloxacin HCl [Cipro] 500 mg tablet 500 mg PO BID Qty: 10 0RF Continued lisinopril 40 mg tablet 40 mg PO DAILY Patient Comments: TAKE 1 TABLET BY MOUTH EVERY DAY atorvastatin 10 mg tablet 10 mg PO DAILY Patient Comments: TAKE 1 TABLET BY MOUTH EVERY DAY krill oil [id number] mg capsule 1 cap PO DAILY PROSTATE ADVANCED 3 tab PO DAILY cholecalciferol (vitamin D3) [Vitamin D3] 125 mcg (5,000 unit) tablet 125 mcg PO DAILY VISION ESSENTIAL ULTRA 1 cap PO DAILY Referrals / Follow Up: Jose Greer MD [Primary Care Provider] - Dilan Sahu MD [Med Staff - Active Staff] - Disposition Disposition (needs filled in before D/C Order can be placed): Home, Self Care
--- OUTSIDE RECORDS SUMMARY | 2022-09-19 08:28 | XMS RPT_ITS | CCD ---
Author Name Unknown Address [address] [place] [address] Organization [facility] Care Team Providers Care Inspector Final Assembly Conveyor Line Name Role Phone Wilmar Ocasio MD Primary Care Provider WILMAR OCASIO Primary Care UnavailDIANA Page Referring Unavailable DIANA CLEMENTE Attending Unavailable DIANA CLEMENTE Attending Unavailable WILMAR OCASIO Primary Care UnavailDIANA Page Referring Unavailable WILMAR OCASIO Primary Care UnavailJEANNIE Nieto Referring Unavailable DIANA CLEMENTE Attending Unavailable Medications Current Medications Medication Drug Class(es) Dates Sig (Normalized) Sig (Original) benoxinate hydrochloride 4 mg/ml / fluorescein sodium 2.5 mg/ml ophthalmic solution (1 source) Diagnostic Dye Start: 07-23-2022 End: 07-23-2022 fluorescein-benoxin ate 0.25-0.4 % 1 Drop (FLURESS) phenylephrine hydrochloride 25 mg/ml ophthalmic solution (2 sources) alpha-1 Adrenergic Agonist Start: 07-23-2022 End: 07-23-2022 PHENYLephrine 2.5 % 1 Drop (AK-DILATE, RADU-SYNEPHRINE) Completed/Discontinued Medications Medication Drug Class(es) Dates Sig (Normalized) Sig (Original) atorvastatin 10 mg oral tablet (3 sources) HMG-CoA Reductase Inhibitor Start: 06-29-2019 take 1 tablet by mouth once daily atorvastatin (LIPITOR) 10 mg tablet Take 10 mg by mouth once daily. 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; Translations: [Combined forms of age-related cataract, left eye] Onset: 0 Chronic Disorders of lipid metabolism (2 sources) Hypercholesterolemia; Translations: [Pure hypercholesterolemia, unspecified] Chronic Essential hypertension (6 sources) Essential hypertension; Translations: [Essential (primary) hypertension] Onset: 1 Chronic Inflammation; infection of eye (except that caused by tuberculosis or sexually transmitteddisease) (3 sources) Bilateral punctate keratitis of eyes; Translations: [Punctate keratitis, bilateral] Onset: 0 12-10-2019 Chronic Residual codes; unclassified (6 sources) History of radial keratotomy; Translations: [Other specified postprocedural states] Onset: 0 Episodic Retinal detachments; defects; vascular occlusion; and retinopathy (6 sources) Neovascularization of choroid of right eye; Translations: [Retinal neovascularization, unspecified, right eye] Onset: 0 12-07-2019 Chronic Past or Other Problems Problem Classification Problem Date Documented Date Episodic/Chronic Inflammation; infection of eye (except that caused by tuberculosis or sexually transmitteddisease) (6 sources) Acute follicular conjunctivitis of right eye; Translations: [Acute follicular conjunctivitis, right eye] Onset: 12-07-2019 12-07-2019 Episodic Mycoses (5 sources) Histoplasmosis syndrome of bilateral eyes; Translations: [Histoplasmosis, unspecified] Onset: 09-19-2019 Episodic Other eye disorders (2 sources) H/O: R cataract extraction; Translations: [Cataract extraction status, right eye] Onset: 11-23-2019 11-23-2019 Episodic Results Test Name Value Interpretation Reference Range Facil ity Vital Signs Date Time Vital Sign Value Performing Clinician Faci lit 07-23-2022 10:46-0400 Diastolic blood pressure 103 mm[Hg] Diana Clemente MD Work Phone: [facility] 07-23-2022 10:46-0400 Heart rate 62 /min Diana Clemente MD Work Phone: [facility] 07-23-2022 10:46-0400 Systolic blood pressure 182 mm[Hg] Diana Clemente MD Work Phone: [facility] Encounters Encounter Date Encounter Type Care Provider Facility Start: 08-24-2022 End: 08-24-2022 ambulatory WILMAR OCASIO Facility:[facility] Start: 08-24-2022 End: 08-24-2022 Patient encounter procedure Diana Clemente MD Work Phone: Ophthalmology Procedures Date Procedure Procedure Detail Performing Clinician Start: 08-24-2022 IOL BIOMETRY W/ IOL CALC OS (LEFT EYE) Diana Clemente MD Work Phone: Start: 08-24-2022 Computerized corneal topography uni/bi Diana Clemente MD Work Phone: Start: 07-23-2022 End: 07-23-2022 Fundus photography w/interpretation & report Diana Clemente MD Work Phone: Start: 07-23-2022 IOL BIOMETRY W/ IOL CALC OS (LEFT EYE) Diana Clemente MD Work Phone: Start: 07-23-2022 Computerized corneal topography uni/bi Diana Clemente MD Work Phone: Start: 02-05-2022 Fundus photography w/interpretation & report Diana Clemente MD Work Phone: Plan of Treatment Date Care Activity Detail Author Start: 10-19-2022 Influenza vaccination INFLUENZA (#1) [facility] Start: 02-18-2022 ADVANCE DIRECTIVE DISCUSSION ADVANCE DIRECTIVE DISCUSSION [facility] Start: 02-18-2022 DEPRESSION ASSESSMENT DEPRESSION ASS [facility] Start: 02-18-2021 ADVANCE DIRECTIVE DISCUSSION ADVANCE DIRECTIVE DISCUSSION [facility] Start: 02-18-2021 DEPRESSION ASSESSMENT DEPRESSION ASS [facility] Start: 2017 PNEUMOCOCCAL: 65+ (1 - PCV) PNEUMOCOCCAL: 65+ (1 - PCV) [facility] Start: 2002 SHINGRIX VACCINE (1 of 2) SHINGRIX V ACCINE (1 of 2) [facility] Start: 1997 COLOGUARD (FIT-DNA) COLOGUARD (FIT-D NA) [facility] Start: 1997 Colonoscopy COLONOSCOPY [facility] Start: 1997 COLORECTAL CANCER SCREENING COLORECTAL CANCER SCREENING [facility] Start: [address] COLONOGRAPHY [facility] Start: 1997 DIABETES SCREEN DIABETES SCREEN [facility] Start: 1997 FECAL OCCULT BLOOD FECAL OCCULT BLOO D [facility] Start: 1997 SIGMOIDOSCOPY SIG[facility]OSCOPY [facility] Start: 12-10-1987 LIPID SCREEN LIPID SCREEN [facility] Start: 12-10-1971 Urine microalbumin profile DTAP,TDAP ,TD (1 - Tdap) [facility] Start: 1970 ANNUAL PCP TEAM LEAD SECURITY OFFICER VIRI DISEASE VISIT ANNUAL PCP TEAM CHRONIC DISEASE VISIT [facility] Start: 1970 BP CONTROLLED (<130/80) BP CONTROLLE D (<130/80) [facility] Start: 1970 HEPATITIS C SCREENING HEPATITIS C SC REENING [facility] Start: 1952 ABDOMINAL AORTIC ANE URYSM SCREENING ABDOMINAL AORTIC ANEURYSM SCREENING [facility] [place] [facility] Payers Date Payer Category Payer Private Health Insurance [facility] AARP SUPPLEMENT [id number] 2019-Present [phone] [address] [place] [address] Indemnity [id number] 2019 Unknown [id number] 2018 Medicare MEDICARE MEDICAR E A AND B [id number] 2018-Present [phone] [address] [address] [place] [address] Medicare [id number] 2018 Medicare [id number] Social History Date Type Detail Facility Start: 09-19-2019 Tobacco smoking stat us NHIS Ex-smoker [facility] History of tobacco use Current smoker [facility] Start: 09-19-2019 Tobacco use and exposure Smoke less tobacco non-user [facility] Start: 02-05-2022 End: 08-24-2022 Alcohol intake Ex-drinker (finding) [facility] Start: 09-19-2019 Tobacco Comment patient only s moked socially for couple years before age 22 [facility] Start: 1950 Sex Assigned At Not on file C [facility] Clinical Notes 09-19-2019 to 08-24-2022 Diana Clemente MD - 08/24/2022 10:21 AM EDTPatient InstructionsMopastora Clemente MD - 07/23/2022 11:51 AM EDTPatient InstructionsDiana Clemente MD - 02/05/2022 10:31 AM EST Note Date & Type Note Facility 08-24-2022 Note HNO ID: [id number] Author: Diana Clemente MD Service: ? Author Type: Physician Type: Progress Notes Filed: 08/24/2022 10:26 AM Note Text: ASSESSMENT/PLAN: 1. Combined forms of age-related cataract of left eye - ICD9: 366.19, ICD10: H25.812 (primary diagnosis) Unable to obtain stable readings Patient to consult Dr. Ramirez for further evaluation 2. Irregular astigmatism of left eye - ICD9: 367.22, ICD10: H52.212 3. History of radial keratotomy - ICD9: V45.69, ICD10: Z98.890 Patient has 12 incision radial keratotomy both eyes K readings too flat unable to obtain consistent measurements/lens power 4. Pseudophakia, right eye - ICD9: V43.1, ICD10: Z96.1 Lens position well centered right eye 5. High myopia, bilateral - ICD9: 367.1, ICD10: H52.13 Patient was -11.00 left eye prior to RK surgery left eye 6. Essential hypertension - ICD9: 401.9, ICD10: I10 Continue care with primary care physician Diana Clemente MD I have confirmed and edited as necessary the relevant ophthalmic history, review of systems, surgical history, and ophthalmological examination findings as obtained by the ophthalmic technical staff. I have seen and examined Isai Solorio. I have discussed the examination findings, diagnosis, and treatment options with Isai Solorio and/or his family. I have also reviewed and agree with the assessment and plan as stated above and agree with all its relevant components. I gave the patient the opportunity to ask questions about the findings, diagnosis, and treatment options. [facility] 08-24-2022 History of Present illness Narrative ASSESSMENT/PLAN: 1. Combined forms of age-related cataract of left eye - ICD9: 366.19, ICD10: H25.812 (primary diagnosis) Unable to obtain stable readings Patient to consult Dr. Ramirez for further evaluation 2. Irregular astigmatism of left eye - ICD9: 367.22, ICD10: H52.212 3. History of radial keratotomy - ICD9: V45.69, ICD10: Z98.890 Patient has 12 incision radial keratotomy both eyes K readings too flat unable to obtain consistent measurements/lens power 4. Pseudophakia, right eye - ICD9: V43.1, ICD10: Z96.1 Lens position well centered right eye 5. High myopia, bilateral - ICD9: 367.1, ICD10: H52.13 Patient was -11.00 left eye prior to RK surgery left eye 6. Essential hypertension - ICD9: 401.9, ICD10: I10 Continue care with primary care physician Diana Clemente MD I have confirmed and edited as necessary the relevant ophthalmic history, review of systems, surgical history, and ophthalmological examination findings as obtained by the ophthalmic technical staff. I have seen and examined Isai Solorio. I have discussed the examination findings, diagnosis, and treatment options with Isai Solorio and/or his family. I have also reviewed and agree with the assessment and plan as stated above and agree with all its relevant components. I gave the patient the opportunity to ask questions about the findings, diagnosis, and treatment options. documented in this encounter [facility] 07-23-2022 Note HNO ID: [id number] Author: Diana Clemente MD Service: ? Author Type: Physician Type: Progress Notes Filed: 07/23/2022 12:02 PM Note Text: ASSESSMENT/PLAN: 1. Combined forms of age-related cataract of left eye - ICD9: 366.19, ICD10: H25.812 (primary diagnosis) 2. Irregular astigmatism, left eye - ICD9: 367.22, ICD10: H52.212 3. History of radial keratotomy - ICD9: V45.69, ICD10: Z98.890 12 incisions radial keratotomy both eyes Patient to discontinue contact lens in the left eye Return in one month for repeat Ascan Plan surgery when readings are stable Patient to have physical examination, EKG and basic metabolic panel prior to surgery Begin medications as directed: Current Ophthalmic Meds fluorometholone (FML LIQUID FILM) 0.1 % ophthalmic suspension Use 1 Drop in the left eye three times daily. Systane Complete Artificial Tears - Use 1 Drop into both eyes three times a day. 4. 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 Cathy Polk/retina specialist for surgery 5. High myopia both eyes Signs, symptoms of detached retina reviewed with patient 5. Essential hypertension - ICD9: 401.9, ICD10: I10 6. Hypercholesteremia - ICD9: 272.0, ICD10: E78.00 Continue care with primary care physician Diana Clemente MD I have confirmed and edited as necessary the relevant ophthalmic history, review of systems, surgical history, and ophthalmological examination findings as obtained by the ophthalmic technical staff. I have seen and examined Isai Solorio. I have discussed the examination findings, diagnosis, and treatment options with Isai Solorio and/or his family. I have also reviewed and agree with the assessment and plan as stated above and agree with all its relevant components. I gave the patient the opportunity to ask questions about the findings, diagnosis, and treatment options. [facility] 07-23-2022 Instructions Diana Clemente MD - 07/23/2022 11:58 AM EDT Begin medications as directed: Current Ophthalmic Meds fluorometholone (FML LIQUID FILM) 0.1 % ophthalmic suspension Use 1 Drop in the left eye three times daily. Systane Complete Artificial Tears - Use 1 Drop into both eyes three times a day. If you have any questions please contact our office at [phone]. After office hours or on the weekend, please call Dr. Clemente on his cell phone at [phone]. documented in this encounter [facility] 07-23-2022 History of Present illness Narrative ASSESSMENT/PLAN: 1. Combined forms of age-related cataract of left eye - ICD9: 366.19, ICD10: H25.812 (primary diagnosis) 2. Irregular astigmatism, left eye - ICD9: 367.22, ICD10: H52.212 3. History of radial keratotomy - ICD9: V45.69, ICD10: Z98.890 12 incisions radial keratotomy both eyes Patient to discontinue contact lens in the left eye Return in one month for repeat Ascan Plan surgery when readings are stable Patient to have physical examination, EKG and basic metabolic panel prior to surgery Begin medications as directed: Current Ophthalmic Meds fluorometholone (FML LIQUID FILM) 0.1 % ophthalmic suspension Use 1 Drop in the left eye three times daily. Systane Complete Artificial Tears - Use 1 Drop into both eyes three times a day. 4. 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 Cathy Polk/retina specialist for surgery 5. High myopia both eyes Signs, symptoms of detached retina reviewed with patient 5. Essential hypertension - ICD9: 401.9, ICD10: I10 6. Hypercholesteremia - ICD9: 272.0, ICD10: E78.00 Continue care with primary care physician Diana Clemente MD I have confirmed and edited as necessary the relevant ophthalmic history, review of systems, surgical history, and ophthalmological examination findings as obtained by the ophthalmic technical staff. I have seen and examined Isai Solorio. I have discussed the examination findings, diagnosis, and treatment options with Isai Solorio and/or his family. I have also reviewed and agree with the assessment and plan as stated above and agree with all its relevant components. I gave the patient the opportunity to ask questions about the findings, diagnosis, and treatment options. documented in this encounter [facility] 02-05-2022 Note HNO ID: [id number] Author: Diana Clemente MD Service: ? Author Type: Physician Type: Progress Notes Filed: 02/05/2022 11:18 AM Note Text: ASSESSMENT/PLAN: 1. Combined forms of age-related cataract of left eye - ICD9: 366.19, ICD10: H25.812 (primary diagnosis) Patient is struggling with disparity between eyes, contact lens prescription left eye is +4.00 Return in 4 months to discuss cataract surgery left eye 2. Pseudophakia of right eye - ICD9: V43.1, ICD10: Z96.1 Intraocular lens implant in good position Right Eye. 3. 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 History of radial keratotomy - ICD9: V45.69, ICD10: Z98.890 12 incision Both Eyes. 5. Essential hypertension - ICD9: 401.9, ICD10: I10 Continue to monitor with primary care physician. 6. Hypercholesteremia - ICD9: 272.0, ICD10: E78.00 Continue to monitor with primary care physician. Diana Clemente MD I have confirmed and edited as necessary the relevant ophthalmic history, review of systems, surgical history, and ophthalmological examination findings as obtained by the ophthalmic technical staff. I have seen and examined Isai Solorio. I have discussed the examination findings, diagnosis, and treatment options with Isai Solorio and/or his family. I have also reviewed and agree with the assessment and plan as stated above and agree with all its relevant components. I gave the patient the opportunity to ask questions about the findings, diagnosis, and treatment options. [facility] 02-05-2022 Instructions Diana Clemente MD - 02/05/2022 11:18 AM EST If you have any questions please contact our office at [phone]. After office hours or on the weekend, please call Dr. Clemente on his cell phone at [phone]. documented in this encounter [facility] 02-05-2022 History of Present illness Narrative ASSESSMENT/PLAN: 1. Combined forms of age-related cataract of left eye - ICD9: 366.19, ICD10: H25.812 (primary diagnosis) Patient is struggling with disparity between eyes, contact lens prescription left eye is +4.00 Return in 4 months to discuss cataract surgery left eye 2. Pseudophakia of right eye - ICD9: V43.1, ICD10: Z96.1 Intraocular lens implant in good position Right Eye. 3. 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 History of radial keratotomy - ICD9: V45.69, ICD10: Z98.890 12 incision Both Eyes. 5. Essential hypertension - ICD9: 401.9, ICD10: I10 Continue to monitor with primary care physician. 6. Hypercholesteremia - ICD9: 272.0, ICD10: E78.00 Continue to monitor with primary care physician. Diana Clemente MD I have confirmed and edited as necessary the relevant ophthalmic history, review of systems, surgical history, and ophthalmological examination findings as obtained by the ophthalmic technical staff. I have seen and examined Isai Crameroy. I have discussed the examination findings, diagnosis, and treatment options with Isai Palmer Solorio and/or his family. I have also reviewed and agree with the assessment and plan as stated above and agree with all its relevant components. I gave the patient the opportunity to ask questions about the findings, diagnosis, and treatment options. documented in this encounter [facility] documented as of this encounter (statuses as of 08/24/2022) [facility]08-01-2020 History of Past illness Narrative* Problem Noted Date Resolved Date Combined forms of age-related cataract of right eye 09/19/2019 11/23/2019 documented as of this encounter (statuses as of 02/05/2022) [facility]08[facility] History of Past illness Narrative* Problem Noted Date Resolved Date Combined forms of age-related cataract of right eye 09/19/2019 11/23/2019 documented as of this encounter (statuses as of 07/23/2022) [facility] Combined forms of age-related cataract of left eye- Primary Other and combined forms of senile cataract Pseudophakia of right eye Lens replaced by other means 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 Essential hypertension Unspecified essential hypertension Hypercholesteremia Pure hypercholesterolemia [facility] Combined forms of age-related cataract of left eye- Primary Other and combined forms of senile cataract Irregular astigmatism, left eye History of radial keratotomy High myopia, bilateral Myopia 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 Essential hypertension Unspecified essential hypertension Hypercholesteremia Pure hypercholesterolemia [facility] Diagnosis Combined forms of age-related cataract of left eye- Primary Other and combined forms of senile cataract Irregular astigmatism of left eye Irregular astigmatism History of radial keratotomy Pseudophakia, right eye Lens replaced by other means High myopia, bilateral Myopia Essential hypertension Unspecified essential hypertension documented in this encounter [facility] Summary Purpose Family History No Family History Records FoundNo Family History Records FoundNo Family History Records Found Advance Directives No Advanced Directives Records FoundNo Advanced Directives Records FoundNo Advanced Directives Records Found Procedure Findings Note Post Operative Note: Post-Pr ocedure Diagnosis: 1. Combined Form Age Related Cataract Right Eye 2. Regular Astigmatism Right Eye 3. Status Post RK (Radial Keratotomy) 12 incisions Right eye Procedure: 1. Cataract Extraction with Toric Intraocular Lens Implant Right eye with sutures to close leaking wound Surgeon: Diana Clemente MD Resident/Fellow/Other Metal Roofing Mechanic: None Estimated Blood Loss (mL): none Specimen: no Findings: 1. Combined Form Age Related Cataract Right Eye 2. Regular Astigmatism Right Eye 3. Status Post RK (Radial Keratotomy) 12 incisions Right eye Operative Report Dictated: Dictation: not applicable - note contains Operative Report Operative Report: The patient was correctly identified in the pre-operative area and the operative eye was marked. The operative eye was dilated in the pre-op area. Under the slit lamp the operative eye was marked using a fine marking pen at 3 o'clock, 6 o'clock and 9 o'clock at the limbus. The patient was taken to the operating room and time (more content not included)... Medications Administered Section Active Administered Medications - up to 3 most recent administrations Medication Order MAR Action Action Date Dose Rate Site PHENYLephrine 2.5 % 1 Drop (AK-DILATE, RADU-SYNEPHRINE) 1 Drop, BOTH EYES, DIRECTED, Starting on Sat02/05/22 at 1030, Until Sat02/05/22 at 2229, Administer for dilation PROTECT FROM LIGHT Given 02/05/2022 10:30 AM EST 1 Drop proparacaine 0.5 % 1 Drop (ALCAINE) 1 Drop, BOTH EYES, DIRECTED, Starting on Sat02/05/22 at 1030, Until Sat02/05/22 at 2229, Administer for pneumo tonometry, tonopen tonometry, or pachymetry. In the event of a proparacaine shortage, administer tetracaine 0.5% ophthalmic drops 1 drop in the left eye as directed for pneumo tonometry, tonopen tonometry, or pachymetry Given 02/05/2022 10:30 AM EST 1 Drop tropicamide 1 % 1 Drop (MYDRIACYL) 1 Drop, BOTH EYES, DIRECTED, Starting on Sat02/05/22 at 1030, Until Sat02/05/22 at 2229, Administer for dilation Given 02/05/2022 10:30 AM EST 1 Drop Additional Source Comments (unrecognized sect ion and content) No Status Records FoundNo Status Records FoundNo Status Records Found INFORMATION SOURCE (unrecogn ized section and content) DATE CREATED AUTHOR AUTHOR'S ORGANIZ ATION 11/02/2019 [facility] DATE CREATED AUTHOR AUTHOR'S ORGANIZ ATION 08/25/2022 [facility] Source Comments (unrecognize d section and content) In the event this informatio n is protected by the Federal Confidentiality of Alcohol and Drug Abuse Patient Records regulations: The Federal rules restrict any use of the information to criminally investigate or prosecute any alcohol or drug abuse patient.[facility] the event this information is protected by the Federal Confidentiality of Alcohol and Drug Abuse Patient Records regulations: The Federal rules restrict any use of the information to criminally investigate or prosecute any alcohol or drug abuse patient.[facility] the event this information is protected by the Federal Confidentiality of Alcohol and Drug Abuse Patient Records regulations: The Federal rules restrict any use of the information to criminally investigate or prosecute any alcohol or drug abuse patient.[facility] Reason for Visit (unrecogniz ed section and content) Reason Comments Blurred Vision Left Eye Glare Left eye Difficulty Reading Left Eye Reason Comments Cataract Follow Up Left eye Care Teams (unrecognized sec tion and content) Inspector Final Assembly Conveyor Line Relationship Specialty Start Date End Date Wilmar Ocasio MD [address] [place] [address] PCP - General Family Medicine 09/19/19 Inspector Final Assembly Conveyor Line Relationship Specialty Start Date End Date Wilmar Ocasio MD [address] [place], [place] [address], [place] [address] PCP - General Family Medicine 09/19/19 FOR RECORDS PERTAINING TO PATIENTS WHO ARE OR HAVE BEEN ENROLLED IN A CHEMICAL DEPENDENCY/SUBSTANCEABUSE PROGRAM, SOME INFORMATION MAY BE OMITTED. This clinical summary was aggregated from multiple sources. Caution should be exercised in using it in the provision of clinical care. This summary normalizes information from multiple sources, and as a consequence, information in this document may materially change the coding, format and clinical context of patient data. In addition, data may be omitted in some cases. CLINICAL DECISIONS SHOULD BE BASED ON THE PRIMARY CLINICAL RECORDS. [employer] [facility]. provides no warranty or guarantee of the accuracy or completeness of information in this document.
[2022-09-19] MEDS: Lactated Ringers 1,000 ML 75 ML IV ×2 (08:59→11:39)
[2022-09-19] MEDS: Cefazolin 2 GM in 0.9% Normal Saline 100 ML IV (10:01)
--- NOTE | 2022-09-19 10:10 | BLB_PTH ---
PATHOLOGY RESULTS PATIENT: ISAI SOLORIO LOC: [facility] [place] U#:[id number] AGE/SX: 71/M ROOM: RE09/19/[address]: Dr. Dilan Sahu MD : 1950 BED: DIS: 09/19/2022 SPEC #: [id number] RECD: 09/19/22 11:32 STATUS: RADHA BURCH #: [id number] CAYLA: 09/19/22 10:[address]: Dilan Sahu DEPT: SURGICAL PATHOLOGY RECD BY: Maddi Mann ENTERED: 09/19/22 13:33 SP TYPE: TURB OTHR DR: Dr. Wilmar Greer MD Tissues: Urinary bladder, NOS Procedures: Surgery Specimen Level V HEADER OPERATION: Transurethral resection bladder tumor with Olympus PRE-OP DIAGNOSIS: Prostate cancer, hematuria TISSUE SUBMITTED: Bladder tumor MICROSCOPIC DIAGNOSIS Bladder tumor, transurethral resection: Papillary urothelial carcinoma, noninvasive. See cancer summary in the comment section. DIANA:demarco 09/20/2022 COMMENT BLADDER CANCER (TUR) SUMMARY Procedure: Transurethral resection of bladder tumor (TURBT) Tumor site: Not specified Histologic type: Papillary urothelial carcinoma, noninvasive Histologic grade: Low grade (1/3) Tumor configuration: Papillary Muscularis propria presence: No muscularis propria (detrusor muscle) is identified. Lymphvascular invasion: Not identified Tumor extension: Noninvasive papillary carcinoma. Additional pathologic findings: Focal procedure related artifacts are noted. The above summary is in compliance with [employer] of [employer] (CAP) Cancer Protocols Checklist and [place] Joint Committee on Cancer (AJCC), Staging Manual, 8th Ed. Case has been reviewed in consultation with Dr. Sauer who concurs with the above diagnosis. IDC:AM MICROSCOPIC DESCRIPTION Slides are reviewed. GROSS DESCRIPTION Received in fixative is one container labeled with the patient's name and designated bladder tumor. The specimen consists of three irregular fragments of light bobo soft tissue that in aggregate measure 0.5 x 0.2 x <0.1 cm. The specimen is totally submitted in one cassette. / AM:demarco 09/19/2022 TC:0 CPT: 09864
[2022-09-19] MEDS: MitoMYcin 40 MG in Syringe 1 EACH 2400 MG INSTILLAT (10:30)
--- NOTE | 2022-09-19 10:32 | PCM.OPRPT ---
Report of Operation Date of Procedure: 09/19/22 Pre-Operative Diagnosis: Bladder tumor, 4 cm x 2 cm in size Post-Operative Diagnosis: The same Surgery/Procedure Performed:: Transurethral resection of bladder tumor Description of Surgical Findings:: Patient presented to the hospital for treatment of a tumor that was found in the bladder with a very large bladder tumor. Patient understands is possible it may not be able to resect the entire tumor. Patient also understands is possible that the patient may need multiple procedures or more invasive procedures to cure him of this cancer. Patient was taken back to the operating room after smooth induction of anesthesia the patient was placed supine on the table. The patient was placed in dorsolithotomy position. The urethra and genitals prepped and draped in usual sterile fashion. I went into the bladder with a 30 degree lens and a cystoscope was performed and identified the tumor about 4 cm x 2 cm x 1 cm occupying mostly the left lateral wall of the bladder. I then switched over to the 70 degree lens and inspected the rest of the bladder with a 70 degree lens to make sure there is no other tumors in the bladder and to identify all the tumor locations. The right and left ureteral orifice were identified. The tumor was not involved in the ureteral orifices. I then placed the Olympus bipolar resectoscope with a large loop into the bladder. I then started resected the tumor and started superficially shaving small little pieces working my way to the base of the tumor. As I went along I then cauterize any bleeders that were encountered during the resection. The tumor pieces were then flushed out of the bladder and continued resecting the tumor until finally I got down to the base of the tumor and the muscle of the bladder was then identified a small little bit of muscle was taken with the resection. The Ellik was used then to evacuate all the tumor pieces out of the bladder. I then cauterized extensively the tumor base and also circumferentially around where the tumor was. Again we made sure to evacuate all the pieces out the bladder. I made sure there was no more bleeding from the base of the bladder and then over the tumor pieces were then evacuated out and sent off as a specimen. After the resection of the entire tumor was completed then treatment with Mitomycin-C was performed. We then placed the catheter in the bladder and the patient was taken back to the PACU in stable condition. Surgeon: Dilan Sahu Type of Anesthesia: General Special Medications: mitomycin c Estimated Blood Loss (mL): 0 Admit VTE Documentation VTE Present on Admission: No VTE Mechan Device Prophylaxis: SCD's VTE Pharm Prophylaxis ordered?: No
--- NOTE | 2022-09-19 15:15 | SUR.PHASEII ---
PT EDUCATED TO CLEAN THE CATHETER EVERYDAY USING THE [facility] PT EDUCATION GUIDELINES. PT EDUCATED ON PROPER REMOVAL OF THE CATHETER AND TO CALL THE OFFICE IF HE DOES NOT URINATE FOR 4-6 HOURS AFTER THE CATHETER HAS BEEN REMOVED PER DR. VANCE VERBAL ORDER.
== END 2022-09-19 15:22 | disposition home or self-care (01) ==
LOC: SDC 08:14 → AC 08:15
PROVIDERS: PCP Family Medicine; Referring Provider Urology; Visit Provider Urology
PROC: 0T5B8ZZ Destruction of Bladder, Via Natural or Artificial Opening Endoscopic (ICD-10-PCS; CPT 51720; principal; 2022-09-19 10:00)
DX: C67.2 Malignant neoplasm of lateral wall of bladder (principal); C61 Malignant neoplasm of prostate; I10 Essential (primary) hypertension; E78.2 Mixed hyperlipidemia; F17.200 Nicotine dependence, unspecified, uncomplicated; Z79.899 Other long term (current) drug therapy
CPT/HCPCS: 52235; 00912; 88307; J7120; J9280; J2405

== ENCOUNTER 2022-10-09 15:22 | Outpatient (CLI) | payer MEDICARE, OTHER, SELFPAY | END 2022-10-09 23:59 | disposition home or self-care (01) | LOC: LABSPEC 15:23 | PROVIDERS: PCP Family Medicine; Referring Provider Urology; Visit Provider Urology | DX: C67.2 Malignant neoplasm of lateral wall of bladder (principal); N40.0 Benign prostatic hyperplasia without lower urinary tract symptoms | CPT/HCPCS: 87086 ==

== ENCOUNTER → 2023-01-30 | Outpatient (CLI) | payer MEDICARE, OTHER, SELFPAY ==
[2023-01-30 10:48] LABS: Anion Gap 3 (5-15); BUN 15 mg/dL (7-18); BUN/Creat Ratio 19.8 RATIO (10-20); Calcium,Total 8.9 mg/dL (8.5-10.1); Chloride 108 mmol/L (98-107); Cholesterol 137 mg/dL (200); Creatinine, Serum 0.76 mg/dL (0.70-1.30); EST Glomerular Filtration Rate 108 mL/min (>60); Est Glom Filt Rate - Afr Amer 131 mL/min (>60); Glucose 92 mg/dL (74-106); High Density Lipoprotein 46 mg/dL; Potassium 3.7 mmol/L (3.5-5.1); Sodium Level 142 mmol/L (136-145); Triglycerides 103 mg/dL; Very Low Density Lipoprotein 21 mg/dL (5-40)
== END | disposition home or self-care (01) ==
LOC: MFPLAB 09:19
PROVIDERS: PCP Family Medicine; Visit Provider Family Medicine
DX: I10 Essential (primary) hypertension (principal); E78.2 Mixed hyperlipidemia
CPT/HCPCS: 36415; 80048; 80061

== ENCOUNTER → 2023-02-05 | Outpatient (CLI) | payer MEDICARE, OTHER, SELFPAY ==
--- NOTE | 2023-02-05 10:14 | RAD_ITS ---
STUDY: X-RAY - CERVICAL SPINE REASON FOR EXAM: Male, 72 years old. DDD TECHNIQUE: 7 view(s) of the cervical spine were obtained. COMPARISON: 01/07/2017 FINDINGS: Normal anterior atlantoaxial articulation. Normal odontoid process. There is straightening of the normal cervical lordosis. No subluxation on flexion-extension views to suggest instability. There is multi-level endplate spondylosis. There is multi-level degenerative disc disease with multilevel disc space narrowing. There is multi-level osseous foraminal stenosis. The soft tissue structures are unremarkable. RAD/Cerv Spine Obl/Flex/Ext Comp IMPRESSION: 1. Moderate degenerative disc disease lower cervical spine with straightening of the normal lordotic curvature. MRI may be useful. 2. No instability. Electronically Signed: Brandon Alba MD at 19:21 EST ,
== END | disposition home or self-care (01) ==
PROVIDERS: PCP Family Medicine; Referring Provider Family Medicine; Visit Provider Family Medicine
DX: M50.30 Other cervical disc degeneration, unspecified cervical region (principal)
CPT/HCPCS: 72052

== ENCOUNTER → 2023-02-07 | Outpatient (CLI) | payer MEDICARE, OTHER, SELFPAY ==
--- NOTE | 2023-02-07 15:57 | CT_ITS ---
EXAM: CT CHEST WITH INTRAVENOUS CONTRAST CLINICAL INDICATION: pericardial cyst TECHNIQUE: Helically acquired images were obtained of the chest with intravenous contrast. This CT exam was performed using one or more of the following dose reduction techniques: automated exposure control, adjustment of the mA and/or kV according to patient size, and/or use of iterative reconstruction technique. CONTRAST: IV 100mL Isovue-300 COMPARISON: CT abdomen and pelvis, 08/06/2022 FINDINGS: LUNGS AND PLEURAL SPACES: Right middle lobe granulomas present. Minimal dependent atelectasis, right greater than left. Otherwise, no significant pulmonary parenchymal abnormality. No mass. No pleural effusion or thickening. No pneumothorax. HEART: No significant abnormality. Heart size is normal. No pericardial effusion. MEDIASTINUM: A mediastinal granuloma is present. Right anterior pericardial cyst measures 3.3 x 3.1 x 4.0 cm (previously 2.9 x 3.2 x 3.9 cm). No surrounding inflammatory changes, solid enhancing nodule, chest wall erosion, or other significant mediastinal abnormality is identified. No mediastinal or hilar adenopathy. Esophagus is unremarkable. No hiatal hernia. THYROID: No significant abnormality. No thyroid lesions. BONES/JOINTS: No significant abnormality. Degenerative changes in the spine. No suspicious lytic or blastic abnormality. VASCULATURE: Trace atherosclerosis of the aorta. Thoracic aorta is non-dilated. No thoracic aortic dissection. No obvious central pulmonary embolism although this study was not performed with the pulmonary embolism protocol. CT/Chest WITH Contrast IMPRESSION: Right anterior pericardial cyst measures 3.3 x 3.1 x 4.0 cm (previously 2.9 x 3.2 x 3.9 cm), not significantly changed given regard to slice selection and volume averaging. No surrounding inflammatory changes, solid enhancing nodule, chest wall erosion, or other significant mediastinal abnormality is identified. Electronically Signed: Evan Valerio DO at 23:56 EST ,
== END | disposition home or self-care (01) ==
LOC: CT 15:51
PROVIDERS: PCP Family Medicine; Referring Provider Family Medicine; Visit Provider Family Medicine
DX: Q24.8 Other specified congenital malformations of heart (principal)
CPT/HCPCS: 71260; Q9967

== ENCOUNTER → 2023-02-26 | Outpatient (CLI) | payer MEDICARE, OTHER, SELFPAY ==
[2023-02-26 12:51] LABS: PSA,Total- Diagnostic 4.91 ng/mL (0.0-4.0)
== END | disposition home or self-care (01) ==
LOC: MFPLAB 10:54
PROVIDERS: PCP Family Medicine; Visit Provider Urology
DX: C61 Malignant neoplasm of prostate (principal)
CPT/HCPCS: 36415; 84153

== ENCOUNTER → 2023-03-07 | Outpatient (CLI) | payer MEDICARE, OTHER, SELFPAY ==
--- NOTE | 2023-03-07 14:00 | ECHOCS_ITS ---
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 The study was technically difficult. Contrast injection was performed. Exam performed in department. Left Ventricle Normal LV size. Left ventricular systolic function is normal. The estimated ejection fraction is 55 %. No regional wall motion abnormalities noted. Right Ventricle Normal RV size. Normal systolic function. Atria Normal left atrium. Normal right atrium. Mitral Valve Normal mitral valve. Tricuspid Valve Normal tricuspid valve. Aortic Valve Trisinus/trileaflet aortic valve. Pulmonic Valve The pulmonic valve is not well visualized. Great Vessels Normal aortic root. The pulmonary artery is normal size. Normal inferior vena cava. Pericardium/Pleural No pericardial effusion. Medication 22 gauge I.V. with prn adaptor inserted into right arm. Diluted definity 3ml given slow IV push to enhance endocardial definition. MMode/2D Measurements & Calculations LVIDd: 4.6 cm IVSd: 0.89 cm Ao root diam: 3.9 cm LVIDs: 3.3 cm LVPWd: 0.92 cm LA dimension: 4.0 cm RVDd: 3.9 cm FS: 28.4 % LAV(MOD-bp): 74.0 ml LVAd ap4: 38.8 cm2 SV(MOD-sp4): 83.4 ml LAV(MOD-bp) Indexed: 34.4 ml/m2 LVLd ap4: 8.3 cm LAV(MOD-sp2): 70.1 ml EDV(MOD-sp4): 144.3 ml LAV(MOD-sp4): 72.9 ml EDV(sp4-el): 153.7 ml LVAs ap4: 22.5 cm2 LVLs ap4: 6.9 cm ESV(MOD-sp4): 60.9 ml ESV(sp4-el): 62.5 ml EF(MOD-sp4): 57.8 % EF(sp4-el): 59.4 % SV(sp4-el): 91.2 ml LA A4 area: 22.7 cm2 RA A4 area: 18.5 cm2 TAPSE: 2.2 cm Time Measurements MV dec time: 0.23 sec Doppler Measurements & Calculations MV E max raphael: 55.7 cm/sec Lat Peak E' Raphael: 6.6 cm/sec Med Peak E' Raphael: 7.3 cm/sec MV A max raphael: 72.4 cm/sec E/E' lat: 8.4 E/E' med: 7.6 MV E/A: 0.77 MV V2 max: 72.8 cm/sec MV P1/2t max raphael: 63.4 cm/sec Ao V2 max: 109.3 cm/sec MV max P.1 mmHg MV P1/2t: 84.8 msec Ao max P.8 mmHg MV V2 mean: 42.0 cm/sec Ao V2 mean: 76.9 cm/sec MV mean P.81 mmHg MV dec slope: 218.9 cm/sec2 Ao mean P.7 mmHg MV V2 VTI: 27.2 cm MVA(P1/2t): 2.6 cm2 Ao V2 VTI: 25.3 cm AV (velocity ratio): 0.92 AI max raphael: 401.2 cm/sec LV V1 max: 100.6 cm/sec PA V2 max: 68.7 cm/sec AI max P.4 mmHg LV V1 max P.1 mmHg LV V1 mean P.2 mmHg AI dec slope: 156.9 cm/sec2 LV V1 mean: 69.7 cm/sec AI P1/2t: 748.9 msec LV V1 VTI: 23.3 cm TR max raphael: 251.2 cm/sec TR max P.2 mmHg ECHO/Echo Complete W/ Contrast Interpretation Summary Normal LV size. Left ventricular systolic function is normal. The estimated ejection fraction is 55 %. Contrast injection was performed. Ordering Physician: Jose Greer Referring Physician: Jose Greer Performed By: Tom Singer RCS
== END | disposition home or self-care (01) ==
LOC: CVS 13:59
PROVIDERS: PCP Family Medicine; Referring Provider Family Medicine; Visit Provider Family Medicine
DX: Q24.8 Other specified congenital malformations of heart (principal)
CPT/HCPCS: 93306; Q9957; A4216; C8929

== ENCOUNTER 2023-04-03 13:30 | Outpatient (RCR) | payer MEDICARE, OTHER, SELFPAY ==
--- NOTE | 2023-02-26 09:24 | HP.PTEVAL_ITS ---
Patient's Visit Information Visit Information Visit Information: ISAI SOLORIO is a 72 year old M referred to Physical Therapy by Dr. Jose Greer MD with a diagnosis of CERVICAL DDD. Date of Evaluation: 02/26/23 Physical Therapist: Blanquita Diamond PT, Cert MDT Visit Plan Frequency: 2-3x /Week Duration: 4-6 Weeks Plan: NO ULTRASOUND. MH NEEDED. CERVICAL SOFT TISSUE MOBILIZATION AND THER EX FOR CERVICAL ROM, STRENGTHENING AND POSTURE CORRECTION (INCLUDING SCAPULAR STRENGTH AND STABILIZATION). INSTRUCTION IN PROPER POSTURE CONTROL AND ERGONOMICS FOR NORMAL TASKS OF DAILY LIVING. Subjective Subjective: Work/Leisure: RETIRED. LIVES ALONE. Present symptoms: PAUL NECK PAIN L > R. HEADACHES AND HEAD PRESSURE - CONSTANT TO SOME DEGREE. INTERMITTENT PULLING IN L EAR. Present since: ABOUT 6 MONTHS AGO Pain Scale: Worst - 4/10 Least - 1/10 Currently: 1/10 Getting Better, Getting Worse, or Staying the Same: Staying the same for the last few wks. Commenced as a result of: NO APPARENT REASON. Symptoms at onset: MORE SEVERE HEAD AND NECK PAIN AND EAR PAIN - L > R. Worse: LIFTING SOMETHING HEAVY, TURNING HEAD RIGHT AND LEFT - ESPECIALLY LEFT. WORSE IN THE MORNINGS. Better: HOT SHOWER, INFARED HEAT, ADVIL Disturbed sleep: YES - NOT SURE IF RELATED TO NECK PAIN. Previous history/Previous treatment: HISTORY OF NECK PAIN IN THE PAST TREATED BY CHIROPRACTORS AND MASSAGE. THEY JUST CRACK IT . NO NECK SURGERY. NO NECK INJECTIONS. NO PHYSICAL THERPAY. NO HISTORY OF HEADACHES. This episode: CHIROPRACTIC AND MASSAGE - I DON'T THINK IT HAS HELPED ANY - PATIENT REPORTS HE ONLY GOES ONCE A MONTH. Dizziness: NO Tinnitus: YES - CHRONIC Nausea: NO Shortness of Breath: NO Difficulty Swollowing: NO Gait: NORMAL Accidents: NO Unexplained weight loss: NO Imaging: RECENT NECK X-RAYS SHOWING DDD PER PATIENT REPORT - PT RECOMMENDED FIRST THEN INJECTIONS IF NEEDED. PMH/Recent major surgery: SURGERY TO REMOVE CANCEROUS BLADDER TUMOR AUGUST 2022 - NO CHEMO OR RADIATION TREATMENT AFTER. MASS FOUND BY HEART - ECHO TEST NEXT Saturday03/07/23. DX'D WITH PROSTATE CANCER 1999 AND STILL HAS IT BUT NO TREATMENT CURRENTY RECOMMENDED PER PATIENT REPORT. HTN. HIGH CHOLESTEROL. Objective Objective: Sitting Posture/Standing Posture: FORWARD HEAD. ROUNDED SHOULDERS. NO TORTICOLLIS. Other Observations: THIS PATIENT AMBULATES INDEP'LY INTO PT WITH NO GROSS DEVICATIONS NOTED. NO AD'S AND NO LOB. Sensory deficit: PAUL UE LIGHT TOUCH SENSATION GROSSLY INTACT AND SYMMETRICAL ROM deficit: PAUL TIGHT SHOULDERS ALL PLANES BUT PATIENT DENIES INCREASED HEAD OR NECK PAIN WITH TESTING. Motor deficit: SHOULDERS 4/5, ELBOWS 5/5. R REHAB THERAPY MANAGER 52 LBS, L REHAB THERAPY MANAGER 53 LBS. Dural Signs: NEGATIVE PAUL UE'S. Cervical Mvmt Loss: Flex: NIL Pro: NIL Ext: MOD Ret: MITRA RSB: MOD LSB: MITRA R Rot: MOD L Rot: MOD PATIENT C/O INCREASED NECK PAIN WITH PAUL ROT AND PAUL SB TESTING. PATIENT DENIES ANY CHANGE IN PAIN OR PRESSURE IN HIS HEAD WITH CERVICAL ROM TESTING ALL PLANES. Postural strength: FAIR Palpation: NO ACUTE UPPER THORACIC, CERVICAL, OCCIPUT, UPPER TRAP OR SHLD TENDERNESS TODAY. TREATMENT: THER ACT - INTRO TO POSTURE CORRECTION/PROPER POSTURE CONTROL AND USE OF LUMBAR SUPPORT IN SITTING. PATIENT TOLERATED LUMBAR SUPPORT IN CLINIC OK TODAY AND COMMUNICATED A FAIR UNDERSTANDING OF INSTRUCTIONS AFTER GIVEN TODAY. Balance/Special Test Scores Oswestry Neck Score: 9 Goals Goal 1:: PATIENT WILL REPORT AT LEAST 25% DECREASED HEAD AND NECK PAIN TO EASE ADL'S. Goal Time Frame: 4-6 Weeks Goal 2:: PATIENT WILL DEMONSTRATE INCREASED PAINFREE CERVICAL ROM IN ALL AFFECTED PLANES TO EASE ADL'S. Goal Time Frame: 4-6 Weeks Goal 3:: PATIENT WILL DEMONSTRATED PROPER POSTURE CONTROL THROUGHOUT PT SESSION TO SHOW IMPROVED STRENGTH. Goal Time Frame: 4-6 Weeks Goal 4:: PATIENT WILL BE INDEP WITH [facility] FOR CONTINUED IMPROVEMENT ONCE FORMAL PHYSICAL THERPAY CONCLUDES. Goal Time Frame: 4-6 Weeks Rehabilitation Potential Physical Therapy Diagnosis: THIS PATIENT PRESENTS TO PHYSICAL THERPAY WITH C/O HEAD AND NECK PAIN, WITH NECK HYPOMOBILITY AND POSTURAL WEAKNESS. HE IS A GOOD CANDIDATE FOR PHYSICAL THERAPY. Rehabilitation Potential: Good Anticipated Interventions Patient/Client Instruction: Educate patient on: Condition, Plan of Care and Risk Factors For the Purpose of:: To improve self management Therapeutic Exercise to Include: Strength training, Body mechanics, Postural training, Flexibilty training, Neuromotor development and Scapular Strength/Stabilization For the Purpose of:: To decrease pain, To improve muscle performance and motor function, To increase tolerance to activity/condition/position, To improve ability of physical actions for home/community/work/leisure and To increase flexibility/ROM Manual Therapy Techniques to Include: Soft tissue mobilization For the Purpose of:: To decrease pain, To improve nutrient delivery to tissue, To improve muscle performance and motor function, To decrease soft tissue restriction and To increase flexibility/ROM Thermo therapy (hot pack): Yes For the Purpose of:: To decrease pain and To improve nutrient delivery to tissue Text: Thank you for the opportunity to evaluate your patient. For Medicare and Medicare HMO plans, please review the plan of care and approve it. It will need to be FAXED BACK to us at [phone] for Medicare purposes. For Medicare only, by signing this I certify the plan of care. Please let me know if there are questions or concerns regarding this plan of care. Physician Signature: Date:
--- NOTE | 2023-03-18 14:37 | HP.PTREVAL ---
Re-Evaluation Intro: Dr. Jose Ocasio MD, It has been my pleasure to treat ISAI SOLORIO over the last 10 visits for CERVICAL DDD. Please see the progress note below for an update on the physical therapy plan of care! Subjective Subjective: I DON'T HAVE THE HEADACHES LIKE I DID . PATIENT REPORTS TURNING HIS NECK WITHOUT PAIN IS A LOT BETTER SINCE STARTING PT. PATIENT REPORTS COMPLIANCE WITH HEP. NO FURTHER FOLLOW UP SCHEULED WITH DR. OCASIO UNTIL JULY UNLESS NEEDED. PATIENT REPORTS MOST OF HIS PAIN IS AT THE TOP OF HIS SPINE WHEN HE FIRST GETS UP IN THE MORNING NOW. NECK PAIN RANGING 0-3/10. Objective Objective/Function: PATIENT WAS SEEN TODAY FOR RE-ASSESSMENT OF PROGRESS TOWARD THE SET PT GOALS AND THE NEED FOR FURTHER PHYSICAL THERAPY VS READINESS FOR DISCHARGE. OVER ALL PATIENT HAS A LITTLE BETTER NECK ROM AND IS REPORTING SIGNIFICANTLY LESS PAIN TURNING HIS HEAD. HE IS INDEP WITH A HEP AND WOULD BENEFIT FROM CONTINUED PT BASED ON PROGRESS MADE AND ROOM FOR FURTHER IMPROVEMENT. PATIENT IS AGREEABLE. UPON EXAM TODAY: Cervical Mvmt Loss: Flex: NIL Pro: NIL Ext: MIN Ret: MOD RSB: MOD LSB: MOD R Rot: MOD L Rot: MOD PATIENT C/O INCREASED NECK PAIN WITH PAUL SB TESTING ONLY TODAY WITH FIRST REPETITION BUT SUBSEQUENT REPETITIONS DID NOT HURT. PATIENT DENIES ANY CHANGE IN PAIN OR PRESSURE IN HIS HEAD WITH CERVICAL ROM TESTING ALL PLANES. Plan Plan Plan: CONTINUE PT 2X'S A WK X 3 WKS NO ULTRASOUND. MH NEEDED. CERVICAL SOFT TISSUE MOBILIZATION AND THER EX FOR CERVICAL ROM, STRENGTHENING AND POSTURE CORRECTION (INCLUDING SCAPULAR STRENGTH AND STABILIZATION). INSTRUCTION IN PROPER POSTURE CONTROL AND ERGONOMICS FOR NORMAL TASKS OF DAILY LIVING. Balance/Gait/Functional tests Balance/Special Test Scores Oswestry Neck Score: 2 Goals Goals Goal 1:: PATIENT WILL REPORT AT LEAST 25% DECREASED HEAD AND NECK PAIN TO EASE ADL'S. Goal Time Frame: 4-6 Weeks Goal Progress: Goal Met Goal 2:: PATIENT WILL DEMONSTRATE INCREASED PAINFREE CERVICAL ROM IN ALL AFFECTED PLANES TO EASE ADL'S. Goal Time Frame: 4-6 Weeks Goal Progress: Progressing Goal 3:: PATIENT WILL DEMONSTRATED PROPER POSTURE CONTROL THROUGHOUT PT SESSION TO SHOW IMPROVED STRENGTH. Goal Time Frame: 4-6 Weeks Goal Progress: Progressing Goal 4:: PATIENT WILL BE INDEP WITH HEP FOR CONTINUED IMPROVEMENT ONCE FORMAL PHYSICAL THERPAY CONCLUDES. Goal Time Frame: 4-6 Weeks Goal Progress: Progressing Anticipated Interventions Anticipated Interventions Patient/Client Instruction: Educate patient on: Condition, Plan of Care and Risk Factors For the Purpose of:: To improve self management Therapeutic Exercise to Include: Strength training, Body mechanics, Postural training, Flexibilty training, Neuromotor development and Scapular Strength/Stabilization For the Purpose of:: To decrease pain, To improve muscle performance and motor function, To increase tolerance to activity/condition/position, To improve ability of physical actions for home/community/work/leisure and To increase flexibility/ROM Manual Therapy Techniques to Include: Soft tissue mobilization For the Purpose of:: To decrease pain, To improve nutrient delivery to tissue, To improve muscle performance and motor function, To decrease soft tissue restriction and To increase flexibility/ROM Thermo therapy (hot pack): Yes For the Purpose of:: To decrease pain and To improve nutrient delivery to tissue Re-Evaluation Ending Re-evaluation ending: Please do not hesitate to contact me at [phone] by phone or if you have questions or concerns regarding this new plan of care! Sincerely, Blanquita Diamond, PT, Cert MDT
--- NOTE | 2023-04-09 14:23 | HP.PTDCSUM_ITS ---
Discharge Summary D/C summary: It has been my pleasure to treat ISAI SOLORIO referred by Dr. Jose Ocasio MD, with the diagnosis of CERVICAL DDD for a total of 16 visit(s). Discharge Date: 04/09/23 Please see the following information for a summary of their discharge status. Subjective Subjective: I CAN TURN MY HEAD BETTER NOW BUT I FEEL LIKE THERE IS SOMETHING WRONG AT THE TOP OF MY NECK. IT GIVES ME A HEADACHE . HE REPORTS THE PAIN COMES AND GOES. HE STATES IT WAS GONE UNTIL SATURDAY MORNING AND THEN IT STARTED FOR NO APPARENT REASON. HE STATES THE PAIN SEEMS TO START AT THE VERY TOP OF HIS SPINE AND THEN HE GETS PAIN IN DIFFERNT SPOTS IN HIS HEAD. HE REPORTS HIS NECK PAIN IS A LOT BETTER AND HE IS DOING HIS HEP WHICH HELPS BUT HE HASN'T BEEN ABLE TO GET HIS HEADACHE TO GO AWAY AND STAY AWAY. PATIENT REPORTS HIS NECK IS FEELING GOOD AND HE CAN TURN IT WITHOUT FEELING THE TIGHTNESS ON THE SIDES. TOOK ADVIL BEFORE WORK SATURDAY NIGHT AND THEN DIDN'T NOTICE THE CAL[place]RESE DURING WORK UNTIL WOKE UP THIS MORNING. Pain Bilateral Neck: Pain Intensity (Out of 10): 0 HEADACHE: Pain Intensity (Out of 10): 3 Overall Improvement % Improvement: 70 Objective Objective/Function: PATIENT WAS SEEN TODAY FOR RE-ASSESSMENT OF PROGRESS TOWARD THE SET PT GOALS AND THE NEED FOR FURTHER PHYSICAL THERAPY VS READINESS FOR DISCHARGE. ALSO SEEN FOR HEP CHECK AND REINFORCEMENT OF IMPRORTANCE OF PROPER POSTURE CONTROL WITH HIS NECK CONDITION. OVER-ALL PATIENT HAS IMPROVED NECK ROM, DECREASED NECK PAIN BUT STILL HAS C/O INTERMITTENT HEAD SX'S. HE REQUIRES CUEING TO CORRECT HIS POSTURE AND POSTURE CORRECTION DECREASES HIS C/O OF HEAD SX'S. AFTER FURTHER EMPHASIZING THE PART HIS POSTURE APPEARS TO BE PLAYING WITH HIS HEADACHES HE STATES HE MIGHT NEED A NEW RECLINER BECAUSE HIS IS 32 YEARS OLD. THIS PT RECOMMENDS FOLLOW UP WITH DR. OCASIO IF HIS HEADACHES CONTINUE AND DO NOT RESOLVE WITH THE EX'S AND STRATEGIES HE HAS BEEN GIVEN. PATIENT IS AGREEABLE. UPON EXAM TODAY: PAUL UE ROM: WFL PAUL UE STRENGTH: 5/5. Cervical Mvmt Loss: Flex: NIL Pro: NIL Ext: MIN Ret: MOD RSB: MOD LSB: MOD R Rot: MOD L Rot: MIN PATIENT DENIES NECK PAIN WITH CERVICAL ROM TESTING ALL PLANES TODAY. HEAD PAIN BRIEFLY WENT AWAY AFTER NECK ROM TESTING AND THEN CAME BACK WHILE SITTING SLOUGHCED ON TREATMENT TABLE WITHOUT BACK SUPPORT. HEAD SX'S DECREASE WITH ACTIVE POSTURE CORRECTION AND ABOLISHED IN SITTING IN CHAIR WITH LUMBAR COCHRAN PPORT (TOWEL ROLL). Goals Goal 1:: PATIENT WILL REPORT AT LEAST 25% DECREASED HEAD AND NECK PAIN TO EASE ADL'S. Goal Progress: Goal Met Goal 2:: PATIENT WILL DEMONSTRATE INCREASED PAINFREE CERVICAL ROM IN ALL AFFECTED PLANES TO EASE ADL'S. Goal Progress: Progressing Goal 3:: PATIENT WILL DEMONSTRATED PROPER POSTURE CONTROL THROUGHOUT PT SESSION TO SHOW IMPROVED STRENGTH. Goal Progress: Progressing Goal 4:: PATIENT WILL BE INDEP WITH HEP FOR CONTINUED IMPROVEMENT ONCE FORMAL PHYSICAL THERPAY CONCLUDES. Goal Progress: Goal Met Plan Plan: D/C TO HEP AND FOLLOW UP WITH DR. OCASIO FOR HEADACHE NEEDED. PATIENT AGREEABLE. D/C Information d/c sentence: If there are questions or concerns regarding this patient's physical therapy, please feel free to call me at [phone]. Thank you for the referral of this patient. Sincerely, Blanquita Diamond, PT, Cert MDT Balance/Gait/Functional tests Balance/Special Test Scores Oswestry Neck Score: 1 Improvement % Improvement: 70
== END 2023-04-03 19:00 | disposition home or self-care (01) ==
LOC: PT 13:30
PROVIDERS: PCP Family Medicine; Visit Provider Family Medicine
DX: M50.30 Other cervical disc degeneration, unspecified cervical region (principal)
CPT/HCPCS: 97110; 97112; 97140; 97162; 97530

== ENCOUNTER → 2023-04-24 | Outpatient (CLI) | payer MEDICARE, OTHER, SELFPAY ==
--- NOTE | 2023-04-24 13:20 | MRI_ITS ---
HISTORY: DIZZINESS. TECHNIQUE: Routine [id number] carotid MR angiogram protocol was performed with the intravenous demonstration of 20 cc Clariscan. 3D reconstructions were reviewed. NASCET criteria using the distal ICAs for comparison were used for evaluation of stenoses. 324 images. COMPARISON: None. FINDINGS: AORTIC ARCH AND BRANCHES: No significant stenosis at the visualized portions. RIGHT CCA: No occlusion or significant stenosis. RIGHT ICA: No occlusion, significant stenosis, or dissection. LEFT CCA: No occlusion or significant stenosis. LEFT ICA: No occlusion, significant stenosis, or dissection. RIGHT VERTEBRAL ARTERY: No occlusion, significant stenosis, or dissection. Hypoplastic. LEFT VERTEBRAL ARTERY: No occlusion, significant stenosis, or dissection. Dominant. MRI/MRA Neck WITH and W/O Contrast IMPRESSION: No evidence for significant stenosis or occlusion in the vertebral or carotid arteries of the neck. Electronically Signed: Kimberlyn Flannery MD at 13:34 EST ,
--- NOTE | 2023-04-24 13:20 | MRI_ITS ---
EXAM: MR angiogram brain. HISTORY: headache TECHNIQUE: MRA Head W/O Contrast COMPARISON: None. LIMITATIONS: None. DISTAL CAROTID ARTERIES: No significant stenosis. ANTERIOR CEREBRAL ARTERIES: No significant stenosis. MIDDLE CEREBRAL ARTERIES: No significant stenosis. POSTERIOR CEREBRAL ARTERIES: No significant stenosis. BASILAR ARTERY: No significant stenosis. OTHER: None. CONCLUSION: No aneurysm or significant stenosis. Electronically Signed: Ian Salazar MD at 7:03 EST , MRI/MRA Head ONLY without Contrast IMPRESSION: undefined
[2023-04-24 13:55] LABS: CREATININE FINGERSTICK < 1.0 mg/dL (0.70-1.30); EGFR FINGERSTICK > 60.0000 mL/min (>60)
== END | disposition home or self-care (01) ==
LOC: MRI 13:17
PROVIDERS: PCP Family Medicine; Referring Provider Family Medicine; Visit Provider Family Medicine
DX: R51.9 Headache, unspecified (principal); R42 Dizziness and giddiness
CPT/HCPCS: 70544; 70549; A9575; A4216

== ENCOUNTER → 2023-08-13 | Outpatient (CLI) | payer MEDICARE, OTHER, SELFPAY ==
[2023-08-13 12:50] LABS: Anion Gap 5 (5-15); BUN 16 mg/dL (7-18); BUN/Creat Ratio 20.9 RATIO (10-20); Calcium,Total 8.6 mg/dL (8.5-10.1); Chloride 109 mmol/L (98-107); Cholesterol 119 mg/dL (200); Creatinine, Serum 0.76 mg/dL (0.70-1.30); EST Glomerular Filtration Rate 107 mL/min (>60); Est Glom Filt Rate - Afr Amer 129 mL/min (>60); Glucose 106 mg/dL (74-106); High Density Lipoprotein 39 mg/dL; Potassium 3.5 mmol/L (3.5-5.1); Sodium Level 141 mmol/L (136-145); Triglycerides 70 mg/dL; Very Low Density Lipoprotein 14 mg/dL (5-40)
== END | disposition home or self-care (01) ==
LOC: MFPLAB 09:53
PROVIDERS: PCP Family Medicine; Visit Provider Family Medicine
DX: E78.2 Mixed hyperlipidemia (principal)
CPT/HCPCS: 36415; 80048; 80061

== ENCOUNTER → 2023-11-07 | Outpatient (CLI) | payer MEDICARE, OTHER, SELFPAY ==
[2023-11-07 15:11] LABS: Hematocrit 39.5 % (40-54); Hemoglobin 12.9 g/dL (13.0-16.5); Mean Corp Hgb Conc 32.7 g/dL (32-36); Mean Corpuscular Hgb 28.9 pg (27.0-32.0); Mean Corpuscular Volume 88.4 fL (80-94); Mean Platelet Vol. 9.8 fl (6.2-12.0); Platelet Count 248 K/mm3 (150-450); RBC Distribution Width CV 13.4 % (11.6-14.6); RBC Distribution Width SD 43.5 fl (35.1-43.9); Red Blood Count 4.47 M/mm3 (4.6-6.2); White Blood Count 6.3 K/mm3 (4.4-11.0)
[2023-11-07 15:27] LABS: Anion Gap 7 (5-15); BUN 14 mg/dL (7-18); BUN/Creat Ratio 17.5 RATIO (10-20); Calcium,Total 9.1 mg/dL (8.5-10.1); Chloride 106 mmol/L (98-107); EST Glomerular Filtration Rate 101 mL/min (>60); Est Glom Filt Rate - Afr Amer 122 mL/min (>60); Glucose 107 mg/dL (74-106); PSA,Total- Diagnostic 6.63 ng/mL (0.0-4.0); Sodium Level 138 mmol/L (136-145)
== END | disposition home or self-care (01) ==
LOC: MFPLAB 11:13
PROVIDERS: PCP Family Medicine; Visit Provider Urology
DX: Z01.812 Encounter for preprocedural laboratory examination (principal); C61 Malignant neoplasm of prostate
CPT/HCPCS: 36415; 80048; 84153; 85027

== ENCOUNTER → 2023-11-08 | Outpatient (CLI) | payer MEDICARE, OTHER, SELFPAY ==
--- NOTE | 2023-11-08 09:54 | RAD_ITS ---
STUDY: X-RAY - ESOPHAGUS (BARIUM SWALLOW) WITH FLUOROSCOPY REASON FOR EXAM: Male, 72 years old. Dysphagia TECHNIQUE: 67 fluoroscopic view(s) of the esophagus were obtained following swallowing of barium. FLUOROSCOPY TIME (if supplied): (41 seconds) minutes/seconds. 24.9 mGy. COMPARISON: None. FINDINGS: There is no demonstrated esophageal foreign body. There is no demonstrated stricture or mucosal abnormality. Normal gastroesophageal junction, without a demonstrated hiatal hernia. The patient ingested a 12 mm tablet of barium. There is transient holdup at the gastroesophageal junction. There is atherosclerotic tortuosity of the aortic arch and descending thoracic aorta. Normal visualized pulmonary parenchyma. There are diffuse degenerative changes of the visualized thoracic spine. RAD/Esophagus Dual Contrast IMPRESSION: Transient holdup of the ingested 12 mm tablet of barium at the gastroesophageal junction. Electronically Signed: Amado Chen MD at 10:33 EDT ,
== END | disposition home or self-care (01) ==
LOC: RAD 09:50
PROVIDERS: PCP Family Medicine; Referring Provider Family Medicine; Visit Provider Family Medicine
DX: R13.10 Dysphagia, unspecified (principal)
CPT/HCPCS: 74221

== ENCOUNTER → 2023-12-05 | Outpatient (CLI) | payer MEDICARE, OTHER, SELFPAY ==
--- NOTE | 2023-12-05 16:27 | STRESSREP ---
Stress Test Report Date: 12/05/2023 Procedure: Exercise tolerance test Indications: Preoperative evaluation Consent: Per the patient Procedure: The patient exercised on a Juan Francisco protocol for 9 minutes and 1 second achieving a peak heart rate of 155 bpm (103% predicted maximal heart rate) with a peak blood pressure 182/70 mmHg and a peak MET capacity of approximately 10.1 MET's. The baseline ECG demonstrated normal sinus rhythm. The peak exercise ECG demonstrated sinus tachycardia with no ischemic changes. Rare PAC noted pretest. The functional capacity was considered excellent for age. The patient had no complaints of chest discomfort during exercise or recovery. The examination was discontinued secondary to target heart rate being achieved. Impression: 1. Technically adequate (percent predicted maximal heart rate greater than 85%) exercise tolerance test 2. Peak exercise ECG with no ischemic changes 3. Negative exercise stress test for ischemia or angina. This note was generated with [employer] software. It may contain incorrect words, spelling, and punctuation that were not noted in checking the note before signing.
== END | disposition home or self-care (01) ==
LOC: CVS 11:01
PROVIDERS: PCP Family Medicine; Referring Provider Family Medicine; Visit Provider Family Medicine
DX: R07.9 Chest pain, unspecified (principal)
CPT/HCPCS: 93017

== ENCOUNTER → 2024-02-14 | Outpatient (CLI) | payer MEDICARE, OTHER, SELFPAY ==
[2024-02-14 12:15] LABS: Hematocrit 41.3 % (40-54); Hemoglobin 13.2 g/dL (13.0-16.5); Mean Corpuscular Hgb 28.6 pg (27.0-32.0); Mean Corpuscular Volume 89.6 fL (80-94); Mean Platelet Vol. 10.1 fl (6.2-12.0); Platelet Count 268 K/mm3 (150-450); RBC Distribution Width CV 12.7 % (11.6-14.6); RBC Distribution Width SD 41.9 fl (35.1-43.9); Red Blood Count 4.61 M/mm3 (4.6-6.2); White Blood Count 6.7 K/mm3 (4.4-11.0)
[2024-02-14 12:58] LABS: ALB/GLOB Ratio 1.4 RATIO (0.9-2.4); AST(SGOT) 20 U/L (15-37); Alanine Aminotransfer ALT/SGPT 30 U/L (16-61); Albumin, Serum 3.8 g/dL (3.2-5.0); Alkaline Phosphatase 38 U/L (45-117); Anion Gap 3 (5-15); BUN 17 mg/dL (7-18); BUN/Creat Ratio 21.4 RATIO (10-20); Calcium,Total 9.6 mg/dL (8.5-10.1); Chloride 108 mmol/L (98-107); Creatinine, Serum 0.79 mg/dL (0.70-1.30); EST Glomerular Filtration Rate 102 mL/min (>60); Est Glom Filt Rate - Afr Amer 124 mL/min (>60); Globulin 2.8 g/dL (2.2-4.2); Glucose 105 mg/dL (74-106); Potassium 4.1 mmol/L (3.5-5.1); Protein, Total 6.6 g/dL (6.4-8.2); Sodium Level 138 mmol/L (136-145)
== END | disposition home or self-care (01) ==
LOC: MFPLAB 09:06
PROVIDERS: PCP Family Medicine; Referring Provider Family Medicine; Visit Provider Family Medicine
DX: K21.9 Gastro-esophageal reflux disease without esophagitis (principal)
CPT/HCPCS: 36415; 80053; 85027

== ENCOUNTER → 2024-03-17 | Outpatient (CLI) | payer MEDICARE, OTHER, SELFPAY ==
[2024-03-17 10:48] LABS: PSA,Total- Diagnostic 6.55 ng/mL (0.0-4.0)
== END | disposition home or self-care (01) ==
LOC: MFPLAB 09:17
PROVIDERS: PCP Family Medicine; Visit Provider Nurse Practitioner
DX: C61 Malignant neoplasm of prostate (principal)
CPT/HCPCS: 36415; 84153

== ENCOUNTER → 2024-08-13 | Outpatient (CLI) | payer MEDICARE, OTHER, SELFPAY ==
[2024-08-13 11:18] LABS: ALB/GLOB Ratio 1.8 RATIO (0.9-2.4); AST(SGOT) 18 U/L (<=37); Alanine Aminotransfer ALT/SGPT 12 U/L (<=46); Albumin, Serum 4.1 g/dL (3.4-4.8); Alkaline Phosphatase 39 U/L (40-129); Anion Gap 12 (5-15); BUN 19 mg/dL (4-19); Calcium,Total 8.8 mg/dL (7.6-11.0); Carbon Dioxide 23.3 mmol/L (21.0-32.0); Chloride 107 mmol/L (98-108); Creatinine, Serum 0.81 mg/dL (0.70-1.20); EST Glomerular Filtration Rate 94 (>60); Globulin 2.2 g/dL (2.2-4.2); Glucose 103 mg/dL (70-99); Potassium 3.9 mmol/L (3.3-5.1); Protein, Total 6.3 g/dL (5.9-8.4); Sodium Level 142 mmol/L (133-145)
[2024-08-13 12:31] LABS: Cholesterol 127 mg/dL (<=200); High Density Lipoprotein 41 mg/dL; Low Density Lipoprotein Calc. 72 mg/dL; Triglycerides 69 mg/dL; Very Low Density Lipoprotein 14 mg/dL (5-40); cholesterol:hdl ratio screen 3.11
--- OUTSIDE RECORDS SUMMARY | 2024-08-13 20:28 | XMS RPT_ITS | CCD ---
Author Organization [facility] CliniSyin Care Team Providers Care Woodyard Operator Name Role Phone Chela Greer MD Primary Care Provider CHELA GREER Primary Care Unavailabl e JOSE LUIS ANDERSON Referring Unavailable JOSE LUIS ANDERSON Attending Unavailable JOSE LUIS ANDERSON Attending Unavailable CHELA GREER Primary Care Unavailrefugio e JOSE LUIS ANDERSON Referring Unavailable CHELA GREER Primary Care UnavailJEANNIE Nieto Referring Unavailable JOSE LUIS ANDERSON Attending Unavailable Dr. Jose Greer Primary Care Provider Dr. Thom Craft Attending Provider [phone] Jose Greer Primary Care Provider Dr. Thom Craft Attending Provider [phone] Robert Payan Attending Unavailable Chela Greer Referring Unavailable Zoey, Chela Primary Care Unavailable Chela Greer Consulting Unavailable Zuleika Teran Attending Unavailable Zoey, Jevonophalyssa Primary Care Unavailable Chela Greer Attending Unavailable Chela Greer Referring Unavailable Ranney, Christophalyssa Primary Care Unavailable Chela Greer Attending Unavailable Chela Greer Referring Unavailable Ranney, Christophalyssa Primary Care Unavailable Dilan Vance Attending Unavailable Zoey, Christophalyssa Primary Care Unavailable Chela Greer Attending Unavailable Chela Greer Referring Unavailable Ranney, Christophalyssa Primary Care Unavailable RanChela cody Attending Unavailable Ranney, Christopher Primary Care Unavailable Chela Greer Attending Unavailable Zoey, Chela Referring Unavailable Ranney, Christopher Primary Care Unavailable RanChela cody Attending Unavailable Ranney, Christopher Primary Care Unavailable Allergies Allergy Classification Reported Allergen(s) Allergy Type Date of Onset Reaction(s) Facility (11 sources) Seasonal Allergies: Uncoded; Translations: [Seasonal Allergies: Uncoded] Allergy to substance 3 Other, RUNNY NOSE [facility] Medications Current Medications Medication Drug Class(es) Dates Sig (Normalized) Sig (Original) atorvastatin 10 mg oral tablet (12 sources) HMG-CoA Reductase Inhibitor Start: 09-12-2022 take 10 mg by mouth once daily Atorvastatin Active 10 MG PO DAILY September 12, 2022 12:00am Start: 06-29-2019 take 1 tablet by boyd th once daily atorvastatin (LIPITOR) 10 mg tablet Take 10 mg by mouth once daily. 0 06/29/2019 Active Comment on above: Take 10 mg by mouth once daily. benoxinate hydrochloride 4 mg/ml / fluorescein sodium 2.5 mg/ml ophthalmic solution (1 source) Diagnostic Dye Start: End: fluorescein-benoxinate 0.25-0.4 % 1 Drop (FLURESS) cephalexin 500 mg oral capsule (1 source) Cephalosporin Antibacterial Start: take 500 mg by mouth every eight hours Cephalexin Active 500 MG PO Q8H August 23, 2022 12:00am cholecalciferol 0.125 mg oral tablet (9 sources) Vitamin D Start: take 1 tablet by mouth once daily Cholecalciferol (Vitamin D3) (Vitamin D3) 125 mcg (5,000 unit) tablet Active 125 MCG PO DAILY September 12, 2022 12:00am ciprofloxacin 500 mg oral tablet (9 sources) Quinolone Antimicrobial Start: take 1 tablet by mouth twice daily Ciprofloxacin Hcl (Cipro) 500 mg tablet Active 500 MG PO TWICE A DAY September 19, 2022 12:00am krill oil (9 sources) Start: Bfgcp-Ae-7-Dha-Epa-Morena spho-Ast (Krill Oil) 1,147-770-59-80 mg capsule Active 1 CAP PO DAILY September 11, 2022 11:00pm Start: 09-12-2022 Nmkga-Mv-4-Dha -Khu-Dogwopq-Dym (Krill Oil) 1,004-825-35-80 mg capsule Active 1 CAP PO DAILY September 12, 2022 12:00am lisinopril 40 mg oral tablet (12 sources) Angiotensin Converting Enzyme Inhibitor Start: 09-12-2022 take 40 mg by mouth once daily Lisinopril Active 40 MG PO DAILY September 12, 2022 12:00am Start: 06-29-2019 [facility] lisinopril (ZESTRIL, PRINIVIL) 40 mg tablet Take 40 mg by mouth once daily. 0 06/29/2019 Active Comment on above: Take 40 mg by mouth once daily. phenylephrine hydrochloride 25 mg/ml ophthalmic solution (2 sources) alpha-1 Adrenergic Agonist Start: 07-23-2022 End: 07-23-2022 PHENYLephrine 2.5 % 1 Drop (AK-DILATE, RADU-SYNEPHRINE) Start: 02-05-2022 End: 02-05-2022 PHENYLephrine 2.5 % 1 Drop ( AK-DILATE, RADU-SYNEPHRINE) proparacaine hydrochloride 5 mg/ml ophthalmic solution (2 sources) Local Anesthetic Start: 07-23-2022 End: 07-23-2022 proparacaine 0.5 % 1 Drop (ALCAINE) Start: 02-05-2022 End: 02-05-2022 proparacaine 0.5 % 1 Drop (A LCAINE) PROSTATE ADVANCED (9 sources) Start: 09-12-2022 take 3 tablets by mo [facility] once daily PROSTATE ADVANCED Active 3 TABLET PO DAILY September 11, 2022 11:00pm Start: 09-12-2022 take 3 tablets by mo [facility] once daily PROSTATE ADVANCED Active 3 TABLET PO DAILY September 12, 2022 12:00am tropicamide 10 mg/ml ophthalmic solution (2 sources) Anticholinergic Start: 07-23-2022 End: 07-23-2022 tropicamide 1 % 1 Drop (MYDRIACYL) Start: 02-05-2022 End: 02-05-2022 tropicamide 1 % 1 Drop (MYDR IACYL) VISION ESSENTIAL ULTRA (9 sources) Start: 09-12-2022 take 1 capsule by mouth once daily VISION ESSENTIAL ULTRA Active 1 CAP PO DAILY September 11, 2022 11:00pm Start: 09-12-2022 take 1 capsule by mo uth once daily VISION ESSENTIAL ULTRA Active 1 CAP PO DAILY September 12, 2022 12:00am Completed/Discontinued Medications Medication Drug Class(es) Dates Sig (Normalized) Sig (Original) cycloSPORINE 0.9 mg/ml ophthalmic solution (1 source) Calcineurin Inhibitor Immunosuppressant Start: 0 End: 2 cycloSPORINE (CEQUA) 0.09 % dpet Use 1 Drop in eyes three times daily. 1 Package 2 12/10/2019 02/05/2022 Discontinued Comment on above: Use 1 Drop in eyes t hree times daily. fluorometholone 1 mg/ml ophthalmic suspension (2 sources) Corticosteroid Start: 3 fluorometholone (FML LIQUID FILM) 0.1 % ophthalmic suspension Use 1 Drop in the left eye three times daily. 5 mL 2 07/23/2022 Active Comment on above: Use 1 Drop in the le ft eye three times daily. 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; Translations: [Combined forms of age-related cataract, left eye] Onset: 0 Chronic Disorders of lipid metabolism (3 sources) Hypercholesterolemia; Translations: [Pure hypercholesterolemia, unspecified] Onset: 4 Chronic Esophageal disorders (1 source) Gastro-esophageal reflux disease without esophagitis; Translations: [Gastro-esophageal reflux disease without esophagitis] Onset: 5 Chronic Essential hypertension (6 sources) Essential hypertension; Translations: [Essential (primary) hypertension] Onset: 1 Chronic Headache; including migraine (1 source) Headache; including migraine; Translations: [Headache, unspecified] Onset: 4 Inflammation; infection of eye (except that caused [...] unspecified, right eye] Onset: 0 12-07-2019 Chronic Urinary tract infections (10 sources) Urinary tract infectious disease; Translations: [Urinary tract infection, site not specified] 08-23-2022 Episodic Past or Other Problems Problem Classification Problem Date Documented Da te Episodic/Chronic Inflammation; infection of eye (except that caused by tuberculosis or sexually transmitteddisease) (6 sources) Acute follicular conjunctivitis of right eye; Translations: [Acute follicular conjunctivitis, right eye] Onset: 12-07-2019 12-07-2019 Episodic Mycoses (5 sources) Histoplasmosis syndrome of bilateral eyes; Translations: [Histoplasmosis, unspecified] Onset: 09-19-2019 Episodic Nonspecific chest pain (2 sources) Chest pain, unspecified; Translations: [Chest pain, unspecified] Onset: 12-26-2023 Episodic Other eye disorders (2 sources) H/O: R cataract extraction; Translations: [Cataract extraction status, right eye] Onset: 11-23-2019 11-23-2019 Episodic Other gastrointestinal disorders (1 source) Dysphagia, unspecified; Translations: [Dysphagia, unspecified] Onset: 12-02-2023 Episodic Results Test Name Value Interpretation Reference Range Facility PSA,Total- Diagnosticon 02-19 PSA, DIAGNOSTIC 6.55 ng/mL High 0.0-4.0 [facility] Comment on above: Result Comment: This test was performed using the TPSA assay method for the [employer] chemistry system. Values obtained with different assay methods cannot be used interchangably. When changing PSA assays in the course of monitoring a patient, additional sequential testing should be carried out to confirm baseline values. Performed By: #### L 500.2500, L500.4100 #### [facility] [address] [place], [place], [id number] CBC-Complete Blood Cnt No Di ffon 02-14-2024 Erythrocyte distribution width (RBC) [Ratio] 12.7 % Normal 11.6-14.6 [facility] Comment on above: Order Comment: Order Date: 08/12/23 Order Info: 0667-1 - BMP Order Info: [id number] - LIPID Performed By: #### L 500.2500, L500.4100 #### [facility] [address] [place], [address] Hematocrit (Bld) [Volume fraction] 41.3 % Normal 40-54 [facility] Comment on above: Order Comment: Order Date: 08/12/23 Order Info: 666-02 - [facility] Order Info: [id number] - LIPID Performed By: #### L 500.2500, L500.4100 #### [facility] [address] [place], [address] Hemoglobin (Bld) [Mass/Vol] 13.2 g/dL Normal 13.0-16.5 [facility] Comment on above: Order Comment: Order Date: 08/12/23 Order Info: 666-02 - [facility] Order Info: [id number] - LIPID Performed By: #### L 500.2500, L500.4100 #### [facility] [address] [place], [address] MCH (RBC) [Entitic mass] 28.6 pg Normal 27.0-32.0 [facility] Comment on above: Order Comment: Order Date: 08/12/23 Order Info: 666-02 - [facility] Order Info: [id number] - LIPID Performed By: #### L 500.2500, L500.4100 #### [facility] [address] [place], [address] MCHC (RBC) [Mass/Vol] 32.0 g/dL Normal 32-36 [facility] Comment on above: Order Comment: Order Date: 08/12/23 Order Info: 666-02 - [facility] Order Info: [id number] - LIPID Performed By: #### L 500.2500, L500.4100 #### [facility] [address] [place], [address] MCV (RBC) [Entitic vol] 89.6 fL Normal 80-94 [facility] Comment on above: Order Comment: Order Date: 08/12/23 Order Info: 666-02 - [facility] Order Info: [id number] - LIPID Performed By: #### L 500.2500, L500.4100 #### [facility] [address] [place], [address] Platelet mean volume (Bld) [Entitic vol] 10.1 fL Normal 6.2-12.0 [facility] Comment on above: Order Comment: Order Date: 08/12/23 Order Info: 666-02 - [facility] Order Info: - LIPID Performed By: #### L 500.2500, L500.4100 #### [facility] [address] [place], [address] Platelets (Bld) [#/Vol] 268 10*3/uL Normal 150-450 [facility] Comment on above: Order Comment: Order Date: 08/12/23 Order Info: 666-02 - [facility] Order Info: - LIPID Performed By: #### L 500.2500, L500.4100 #### [facility] [address] [place], [address] RBC (Bld) [#/Vol] 4.61 10*6/uL Normal 4.6-6.2 [facility] Comment on above: Order Comment: Order Date: 08/12/23 Order Info: 666-02 - [facility] Order Info: [id number] - LIPID Performed By: #### L 500.2500, L500.4100 #### [facility] [address] [place], [address] RDW SD 41.9 fl Normal 35.1-43.9 [facility] Comment on above: Order Comment: Order Date: 08/12/23 Order Info: 666-02 - [facility] Order Info: [id number] - LIPID Performed By: #### L 500.2500, L500.4100 #### [facility] [address] [place], [address] WBC (Bld) [#/Vol] 6.7 10*3/uL Normal 4.4-11.0 [facility] Comment on above: Order Comment: Order Date: 08/12/23 Order Info: 0667- - BMP Order Info: [id number] - LIPID Performed By: #### L 500.2500, L500.4100 #### [facility] [address] [place], [address] Comprehensive Metabolic Prof ilon 02-14-2024 Albumin [Mass/Vol] 3.8 g/dL Normal 3.2-5.0 [facility] Comment on above: Order Comment: Order Date: 08/12/23 Order Info: 06 - BMP Order Info: [id number] - LIPID Performed By: #### L 500.2500, L500.4100 #### [facility] [address] [place], [address] Albumin/Globulin [Mass ratio] 1.4 {ratio} Normal 0.9-2.4 [facility] Comment on above: Order Comment: Order Date: 08/12/23 Order Info: 666-02 - BMP Order Info: [id number] - LIPID Performed By: #### L 500.2500, L500.4100 #### [facility] [address] [place], [address] ALK P 38 U/L Low 45-117 [facility] Comment on above: Order Comment: Order Date: 08/12/23 Order Info: 06- - BMP Order Info: [id number] - LIPID Performed By: #### L 500.2500, L500.4100 #### [facility] [address] [place], [address] ALT [Catalytic activity/Vol] 30 U/L Normal 16-61 [facility] Comment on above: Order Comment: Order Date: 08/12/23 Order Info: 06- - BMP Order Info: [id number] - LIPID Performed By: #### L 500.2500, L500.4100 #### [facility] [address] [place], [address] AST [Catalytic activity/Vol] 20 U/L Normal 15-37 [facility] Comment on above: Order Comment: Order Date: 08/12/23 Order Info: 06- - BMP Order Info: [id number] - LIPID Performed By: #### L 500.2500, L500.4100 #### [facility] [address] [place], [address] Bilirubin [Mass/Vol] 0.70 mg/dL Normal 0.20-1.[address] [facility] Comment on above: Order Comment: Order Date: 08/12/23 Order Info: 666-02 - BMP Order Info: [id number] - LIPID Result Comment: For patients on eltrombopag therapy, use of Dimension [place] TBIL is not recommended. Performed By: #### L 500.2500, L500.4100 #### [facility] [address] [place], [address] BUN/CRE 21.4 RATIO High 10-20 [facility] Comment on above: Order Comment: Order Date: 08/12/23 Order Info: 666-02 - BMP Order Info: [id number] - LIPID Performed By: #### L 500.2500, L500.4100 #### [facility] [address] [place], [address] CA,Total 9.6 mg/dL Normal 8.5-10.1 [facility] Comment on above: Order Comment: Order Date: 08/12/23 Order Info: 666-02 - BMP Order Info: [id number] - LIPID Performed By: #### L 500.2500, L500.4100 #### [facility] [address] [place], [address] Chloride [Moles/Vol] 108 mmol/L High 98-[address] [facility] Comment on above: Order Comment: Order Date: 08/12/23 Order Info: 666-02 - BMP Order Info: [id number] - LIPID Performed By: #### L 500.2500, L500.4100 #### [facility] [address] [place], [address] CO2 [Moles/Vol] 27.0 mmol/L Normal 21.0-32.0 [facility] Comment on above: Order Comment: Order Date: 08/12/23 Order Info: 666-02 - [facility] Order Info: - LIPID Performed By: #### L 500.2500, L500.4100 #### [facility] [address] [place], [address] Creatinine [Mass/Vol] 0.79 mg/dL Normal 0.70-1.30 [facility] Comment on above: Order Comment: Order Date: 08/12/23 Order Info: 666-02 - [facility] Order Info: - LIPID Result Comment: The validity of the calculated GFR GFRAA in patients over 70 years has not been determined. Clinical correlation is essential. Performed By: #### L 500.2500, L500.4100 #### [facility] [address] [place], [address] EST GFR - AA 124 mL/min Normal >60 [facility] Comment on above: Order Comment: Order Date: 08/12/23 Order Info: 666-02 - [facility] Order Info: - LIPID Result Comment: Afri can Malian GFR Calc Performed By: #### L 500.2500, L500.4100 #### [facility] [address] [place], [address] GAP 3 Low 5-15 [facility] Comment on above: Order Comment: Order Date: 08/12/23 Order Info: 666-02 - [facility] Order Info: - LIPID Performed By: #### L 500.2500, L500.4100 #### [facility] [address] [place], [address] GFR/1.73 sq M.predicted among non-blacks MDRD (S/P/Bld) [Vol rate/Area] 102 mL/min/{1.73_m2} Normal >60 [facility] Comment on above: Order Comment: Order Date: 08/12/23 Order Info: 666- - BMP Order Info: [id number] - LIPID Result Comment: Non- GFR Calc Performed By: #### L 500.2500, L500.4100 #### [facility] [address] [place], [address] Globulin (S) [Mass/Vol] 2.8 g/dL Normal 2.2-4.2 [facility] Comment on above: Order Comment: Order Date: 08/12/23 Order Info: 666-02 - [facility] Order Info: [id number] - LIPID Performed By: #### L 500.2500, L500.4100 #### [facility] [address] [place], [address] Glucose [Mass/Vol] 105 mg/dL Normal 74-106 [facility] Comment on above: Order Comment: Order Date: 08/12/23 Order Info: 666-02 - [facility] Order Info: [id number] - LIPID Result Comment: Fast ing Glucose result from 100 to 125 mg/dL suggests IMPAIRED HOMEOSTASIS per A.D.A. criteria. Performed By: #### L 500.2500, L500.4100 #### [facility] [address] [place], [address] Potassium [Moles/Vol] 4.1 mmol/L Normal 3.5-5.1 [facility] Comment on above: Order Comment: Order Date: 08/12/23 Order Info: 666-02 - [facility] Order Info: [id number] - LIPID Performed By: #### L 500.2500, L500.4100 #### [facility] [address] [place], [address] Sodium [Moles/Vol] 138 mmol/L Normal 136-145 [facility] Comment on above: Order Comment: Order Date: 08/12/23 Order Info: 0667-1 - BMP Order Info: [id number] - LIPID Performed By: #### L 500.2500, L500.4100 #### [facility] [address] [place], [address] T PROT 6.6 g/dL Normal 6.4-8.2 [facility] Comment on above: Order Comment: Order Date: 08/12/23 Order Info: 0667-1 - BMP Order Info: [id number] - LIPID Performed By: #### L 500.2500, L500.4100 #### [facility] [address] [place], [address] Urea nitrogen [Mass/Vol] 17 mg/dL Normal 7-18 [facility] Comment on above: Order Comment: Order Date: 08/12/23 Order Info: 0667-1 - BMP Order Info: [id number] - LIPID Performed By: #### L 500.2500, L500.4100 #### [facility] [address] [place], [address] Stress Reporton 12-05-2023 Stress Report [facility] [address] [place] [address] MR#: [id number] Acct: [id number] Name: ISAI SOLORIO Rep #: [id number] : 1950 72 From: Robert Payan MD Primary Care: Dr. Chela Greer MD Status: REG [facility] Referring Dr: Chela Greer MD Sex: M C Stress Test Report Date: 12/05/2023 Procedure: Exercise tolerance test Indications: Preoperative evaluation Consent: Per the patient Procedure: The patient exercised on a Juan [place] protocol for 9 minutes and 1 second achieving a peak heart rate of 155 bpm (103% predicted maximal heart rate) with a peak blood pressure 182/70 mmHg and a peak MET capacity of approximately 10.1 MET's. The baseline ECG demonstrated normal sinus rhythm. The peak exercise ECG demonstrated sinus tachycardia with no ischemic changes. Rare PAC noted pretest. The functional capacity was considered excellent for age. The patient had no complaints of chest discomfort during exercise or recovery. The examination was discontinued secondary to target heart rate being achieved. Impression: 1. Technically adequate (percent predicted maximal heart rate greater than 85%) exercise tolerance test 2. Peak exercise ECG with no ischemic changes 3. Negative exercise stress test for ischemia or angina. This note was generated with [employer] dictation software. It may contain incorrect words, spelling, and punctuation that were not noted in checking the note before signing. 12/05/231628 Date Robert Payan MD CC: Dr. Chela Greer MD Date Dictated: 12/05/231626 Date Transcribed: 12/05/231626 Life Underwriter: AR Signed Normal [facility] Esophagus Dual Contraston Esophagus Dual Contrast [facility] Imaging Services [address] [place] [id number] Esophagus Dual Contrast MR#: [id number] Acct: [id number] Name: ISAI SOLORIO Spencer Rep #: [id number] : 1950 M 72 From: Amado germain MD PCP: Dr. Chela Greer MD Status: [facility] Study: Esophagus Dual Contrast Date of Exam: 11/08/23 Exam# [id number] Ordering Dr: Chela Greer [id number] STUDY: X-RAY - ESOPHAGUS (BARIUM SWALLOW) WITH FLUOROSCOPY REASON FOR EXAM: Male, 72 years old. Dysphagia TECHNIQUE: 67 fluoroscopic view(s) of the esophagus were obtained following swallowing of barium. FLUOROSCOPY TIME (if supplied): (41 seconds) minutes/seconds. 24.9 mGy. COMPARISON: None. FINDINGS: There is no demonstrated esophageal foreign body. There is no demonstrated stricture or mucosal abnormality. Normal gastroesophageal junction, without a demonstrated hiatal hernia. The patient ingested a 12 mm tablet of barium. There is transient holdup at the gastroesophageal junction. There is atherosclerotic tortuosity of the aortic arch and descending thoracic aorta. Normal visualized pulmonary parenchyma. There are diffuse degenerative changes of the visualized thoracic spine. RAD/Esophagus Dual Contrast IMPRESSION: Transient holdup of the ingested 12 mm tablet of barium at the gastroesophageal junction. Electronically Signed: Amado Chen MD at 10:33 EDT , CC: Dr. Chela Greer MD Life Underwriter: Signed Normal [facility] Basic Metabolic Profile (BMP )on 11-07-2023 BUN/CRE 17.5 RATIO Normal 12-07 [facility] Comment on above: Performed By: #### L 500.2500, L501.9940, L100.0500 #### [facility] [address] [place], [address] CA,Total 9.1 mg/dL Normal 8.5-10.1 [facility] Comment on above: Performed By: #### L 500.2500, L501.9940, L100.0500 #### [facility] [address] [place], [address] Chloride [Moles/Vol] 106 mmol/L Normal 98-[address] [facility] Comment on above: Performed By: #### L 500.2500, L501.9940, L100.0500 #### [facility] [address] [place], [address] CO2 [Moles/Vol] 25.0 mmol/L Normal 21.0-32.0 [facility] Comment on above: Performed By: #### L 500.2500, L501.9940, L100.0500 #### [facility] [address] [place], [address] Creatinine [Mass/Vol] 0.80 mg/dL Normal 0.70-1.30 [facility] Comment on above: Result Comment: The validity of the calculated GFR GFRAA in patients over 70 years has not been determined. Clinical correlation is essential. Performed By: #### L 500.2500, L501.9940, L100.0500 #### [facility] [address] [place], [address] EST GFR - AA 122 mL/min Normal >60 [facility] Comment on above: Result Comment: Afri can Malian GFR Calc Performed By: #### L 500.2500, L501.9940, L100.0500 #### [facility] [address] [place], [address] GAP 7 Normal 5-15 [facility] Comment on above: Performed By: #### L 500.2500, L501.9940, L100.0500 #### [facility] [address] [place], [address] GFR/1.73 sq M.predicted among non-blacks MDRD (S/P/Bld) [Vol rate/Area] 101 mL/min/{1.73_m2} Normal >60 [facility] Comment on above: Result Comment: Non- GFR Calc Performed By: #### L 500.2500, L501.9940, L100.0500 #### [facility] [address] [place], [address] Glucose [Mass/Vol] 107 mg/dL High 74-106 [facility] Comment on above: Result Comment: Fast ing Glucose result from 100 to 125 mg/dL suggests IMPAIRED HOMEOSTASIS per A.D.A. criteria. Performed By: #### L 500.2500, L501.9940, L100.0500 #### [facility] [address] [place], [address] Potassium [Moles/Vol] 4.0 mmol/L Normal 3.5-5.1 [facility] Comment on above: Performed By: #### L 500.2500, L501.9940, L100.0500 #### [facility] [address] [place], [address] Sodium [Moles/Vol] 138 mmol/L Normal 136-145 [facility] Comment on above: Performed By: #### L 500.2500, L501.9940, L100.0500 #### [facility] [address] [place], [address] Urea nitrogen [Mass/Vol] 14 mg/dL Normal 7-18 [facility] Comment on above: Performed By: #### L 500.2500, L501.9940, L100.0500 #### [facility] [address] [place], [address] CBC-Complete Blood Cnt No Di ffon 11-07-2023 Erythrocyte distribution width (RBC) [Ratio] 13.4 % Normal 11.6-14.6 [facility] Comment on above: Performed By: #### L 500.2500, L501.9940, L100.0500 #### [facility] [address] [place], [address] Hematocrit (Bld) [Volume fraction] 39.5 % Low 40-54 [facility] Comment on above: Performed By: #### L 500.2500, L501.9940, L100.0500 #### [facility] [address] [place], [address] Hemoglobin (Bld) [Mass/Vol] 12.9 g/dL Low 13.0-16.5 [facility] Comment on above: Performed By: #### L 500.2500, L501.9940, L100.0500 #### [facility] [address] [place], [address] MCH (RBC) [Entitic mass] 28.9 pg Normal 27.0-32.0 [facility] Comment on above: Performed By: #### L 500.2500, L501.9940, L100.0500 #### [facility] [address] [place], [address] MCHC (RBC) [Mass/Vol] 32.7 g/dL Normal 32-36 [facility] Comment on above: Performed By: #### L 500.2500, L501.9940, L100.0500 #### [facility] [address] [place], [address] MCV (RBC) [Entitic vol] 88.4 fL Normal 80-94 [facility] Comment on above: Performed By: #### L 500.2500, L501.9940, L100.0500 #### [facility] [address] [place], [address] Platelet mean volume (Bld) [Entitic vol] 9.8 fL Normal 6.2-12.0 [facility] Comment on above: Performed By: #### L 500.2500, L501.9940, L100.0500 #### [facility] [address] [place], [address] Platelets (Bld) [#/Vol] 248 10*3/uL Normal 150-450 [facility] Comment on above: Performed By: #### L 500.2500, L501.9940, L100.0500 #### [facility] [address] [place], [address] RBC (Bld) [#/Vol] 4.47 10*6/uL Low 4.6-6.2 [facility] Comment on above: Performed By: #### L 500.2500, L501.9940, L100.0500 #### [facility] [address] [place], [address] RDW SD 43.5 fl Normal 35.1-43.9 [facility] Comment on above: Performed By: #### L 500.2500, L501.9940, L100.0500 #### [facility] [address] [place], [address] WBC (Bld) [#/Vol] 6.3 10*3/uL Normal 4.4-11.0 [facility] Comment on above: Performed By: #### L 500.2500, L501.9940, L100.0500 #### [facility] [address] [place], [address] PSA,Total- Diagnosticon 10-19 PSA, DIAGNOSTIC 6.63 ng/mL High 0.0-4.0 [facility] Comment on above: Result Comment: This test was performed using the TPSA assay method for the [employer] chemistry system. Values obtained with different assay methods cannot be used interchangably. When changing PSA assays in the course of monitoring a patient, additional sequential testing should be carried out to confirm baseline values. Performed By: #### L 500.2500, L501.9940, L100.0500 #### [facility] [address] [place], [address] Basic Metabolic Profile (BMP )on 08-13-2023 BUN/CRE 20.9 RATIO High 10-20 [facility] Comment on above: Order Comment: Order Date: 08/12/23 Order Info: [id number] - BMP Order Info: [id number] - LIPID Performed By: #### L 500.2500, L500.4100 #### [facility] [address] [place], [address] CA,Total 8.6 mg/dL Normal 8.5-10.1 [facility] Comment on above: Order Comment: Order Date: 08/12/23 Order Info: [id number] - BMP Order Info: [id number] - LIPID Performed By: #### L 500.2500, L500.4100 #### [facility] [address] [place], [address] Chloride [Moles/Vol] 109 mmol/L High 98-[address] [facility] Comment on above: Order Comment: Order Date: 08/12/23 Order Info: 666-02 - BMP Order Info: - LIPID Performed By: #### L 500.2500, L500.4100 #### [facility] [address] [place], [address] CO2 [Moles/Vol] 27.0 mmol/L Normal 21.0-32.0 [facility] Comment on above: Order Comment: Order Date: 08/12/23 Order Info: 666-02 - BMP Order Info: - LIPID Performed By: #### L 500.2500, L500.4100 #### [facility] [address] [place], [address] Creatinine [Mass/Vol] 0.76 mg/dL Normal 0.70-1.30 [facility] Comment on above: Order Comment: Order Date: 08/12/23 Order Info: 666-02 - BMP Order Info: [id number] - LIPID Result Comment: The validity of the calculated GFR GFRAA in patients over 70 years has not been determined. Clinical correlation is essential. Performed By: #### L 500.2500, L500.4100 #### [facility] [address] [place], [address] EST GFR - AA 129 mL/min Normal >60 [facility] Comment on above: Order Comment: Order Date: 08/12/23 Order Info: 666-02 - BMP Order Info: [id number] - LIPID Result Comment: Afri can Malian GFR Calc Performed By: #### L 500.2500, L500.4100 #### [facility] [address] [place], [address] GAP 5 Normal 5-15 [facility] Comment on above: Order Comment: Order Date: 08/12/23 Order Info: 666-02 - BMP Order Info: [id number] - LIPID Performed By: #### L 500.2500, L500.4100 #### [facility] [address] [place], [address] GFR/1.73 sq M.predicted among non-blacks MDRD (S/P/Bld) [Vol rate/Area] 107 mL/min/{1.73_m2} Normal >60 [facility] Comment on above: Order Comment: Order Date: 08/12/23 Order Info: 666-02 - BMP Order Info: [id number] - LIPID Result Comment: Non- GFR Calc Performed By: #### L 500.2500, L500.4100 #### [facility] [address] [place], [address] Glucose [Mass/Vol] 106 mg/dL Normal 74-106 [facility] Comment on above: Order Comment: Order Date: 08/12/23 Order Info: 666-02 - BMP Order Info: [id number] - LIPID Result Comment: Fast ing Glucose result from 100 to 125 mg/dL suggests IMPAIRED HOMEOSTASIS per A.D.A. criteria. Performed By: #### L 500.2500, L500.4100 #### [facility] [address] [place], [address] Potassium [Moles/Vol] 3.5 mmol/L Normal 3.5-5.1 [facility] Comment on above: Order Comment: Order Date: 08/12/23 Order Info: 666-02 - BMP Order Info: [id number] - LIPID Performed By: #### L 500.2500, L500.4100 #### [facility] [address] [place], [address] Sodium [Moles/Vol] 141 mmol/L Normal 136-145 [facility] Comment on above: Order Comment: Order Date: 08/12/23 Order Info: 666-02 - BMP Order Info: [id number] - LIPID Performed By: #### L 500.2500, L500.4100 #### [facility] [address] [place], [address] Urea nitrogen [Mass/Vol] 16 mg/dL Normal 7-18 [facility] Comment on above: Order Comment: Order Date: 08/12/23 Order Info: 666-02 - [facility] Order Info: [id number] - LIPID Performed By: #### L 500.2500, L500.4100 #### [facility] [address] [place], [address] Lipid Profileon 08-13-2023 Cholesterol [Mass/Vol] 119 mg/dL Normal 200 [facility] Comment on above: Order Comment: Order Date: 08/12/23 Order Info: 666-02 - [facility] Order Info: [id number] - LIPID Result Comment: <200 mg/dL Desirable 200-240 mg/dL Borderline >240 mg/dL High Risk Performed By: #### L 500.2500, L500.4100 #### [facility] [address] [place], [address] Cholesterol in HDL [Mass/Vol] 39 mg/dL Low [facility] Comment on above: Order Comment: Order Date: 08/12/23 Order Info: 666-02 - [facility] Order Info: [id number] - LIPID Result Comment: The drugs N-Acetylcysteine and Metamizole may falsely depress this assay. Reference Range HDL <40 mg/dL Low HDL Cholesterol HDL >or= 60 mg/dL High HDL Cholesterol Performed By: #### L 500.2500, L500.4100 #### [facility] [address] [place], [address] Cholesterol in LDL [Mass/Vol] 66 mg/dL Normal 0-130 [facility] Comment on above: Order Comment: Order Date: 08/12/23 Order Info: 666-02 - BMP Order Info: [id number] - LIPID Performed By: #### L 500.2500, L500.4100 #### [facility] [address] [place], [address] Cholesterol in VLDL [Mass/Vol] 14 mg/dL Normal 5-40 [facility] Comment on above: Order Comment: Order Date: 08/12/23 Order Info: [id number] - [facility] Order Info: [id number] - LIPID Performed By: #### L 500.2500, L500.4100 #### [facility] [address] [place], [address] Triglyceride [Mass/Vol] 70 mg/dL Normal [facility] Comment on above: Order Comment: Order Date: 08/12/23 Order Info: 666-02 - [facility] Order Info: [id number] - LIPID Result Comment: The drugs N-Acetylcysteine and Metamizole may falsely depress this assay. Serum Triglycerides Reference Interval Normal <150 mg/dL Borderline high 150 - 199 mg/dL High 200 - 499 mg/dL Very High > or = 500 mg/dL Performed By: #### L 500.2500, L500.4100 #### [facility] [address] [place], [address] Basophil percentageOrdered B y: Jose Greer on 04-24-2023 Basophil percentage < 1.0 mg/dL 0.70-1.[address] [facility] CREATININE FINGERSTICKon CREATININE WB < 1.0 Normal 0.70-1.30 [facility] Comment on above: Performed By: #### L 500.2500, L500.4100 #### [facility] [address] [place], [address] EGFR WB > 60.0000 Normal >60 [facility] Comment on above: Performed By: #### L 500.2500, L500.4100 #### [facility] [address] [place], [address] MRA Head ONLY without Contra ston 04-24-2023 MRA Head ONLY without Contrast [facility] [address] [place] [address] MRA Head ONLY without Contrast MR#: [id number] Acct: [id number] Name: ISAI SOLORIO Rep #: [id number] : 1950 M 72 From: Ian Salazar MD PCP: Dr. Jose Greer MD Status: REG CLI Study: MRA Head ONLY without Contrast Date of Exam: 0 04/24/23 Exam# [id number] Ordering Dr: [place] [id number] EXAM: MR angiogram brain. HISTORY: headache TECHNIQUE: MRA Head W/O Contrast COMPARISON: None. LIMITATIONS: None. DISTAL CAROTID ARTERIES: No significant stenosis. ANTERIOR CEREBRAL ARTERIES: No significant stenosis. MIDDLE CEREBRAL ARTERIES: No significant stenosis. POSTERIOR CEREBRAL ARTERIES: No significant stenosis. BASILAR ARTERY: No significant stenosis. OTHER: None. CONCLUSION: No aneurysm or significant stenosis. Electronically Signed: Ian Salazar MD at 7:03 EST , MRI/MRA Head ONLY without Contrast IMPRESSION: undefined CC: Dr. Jose Greer MD Life Underwriter: Signed Normal [facility] MRA Neck WITH and W/O Contra ston 04-24-2023 MRA Neck WITH and W/O Contrast [facility] [address] [place] [address] MRA Neck WITH and W/O Contrast MR#: [id number] Acct: [id number] Name: ISAI SOLORIO Rep #: [id number] : 1950 M 72 From: Kimberlyn davila MD PCP: Dr. Jose Greer MD Status: REG CLI Study: MRA Neck WITH and W/O Contrast Date of Exam: 0 04/24/23 Exam# [id number] Ordering Dr: [place] [id number] HISTORY: DIZZINESS. TECHNIQUE: Routine [id number] carotid MR angiogram protocol was performed with the intravenous demonstration of 20 cc Clariscan. 3D reconstructions were reviewed. NASCET criteria using the distal ICAs for comparison were used for evaluation of stenoses. 324 images. COMPARISON: None. FINDINGS: AORTIC ARCH AND BRANCHES: No significant stenosis at the visualized portions. RIGHT CCA: No occlusion or significant stenosis. RIGHT ICA: No occlusion, significant stenosis, or dissection. LEFT CCA: No occlusion or significant stenosis. LEFT ICA: No occlusion, significant stenosis, or dissection. RIGHT VERTEBRAL ARTERY: No occlusion, significant stenosis, or dissection. Hypoplastic. LEFT VERTEBRAL ARTERY: No occlusion, significant stenosis, or dissection. Dominant. MRI/MRA Neck WITH and W/O Contrast IMPRESSION: No evidence for significant stenosis or occlusion in the vertebral or carotid arteries of the neck. Electronically Signed: Kimberlyn Flannery MD at 13:34 EST Reading Location ID and State: [facility] / [place] Tel , Service support , CC: Dr. Jose Greer MD Life Underwriter: Signed Normal [facility] No Panel InformationOrdered By: Jose Greer on 04-24-2023 Bedside Estimated GFR (eGFR) > 60.0000 mL/min >60 [facility] PT D/C Summary (1)on 024 PT D/C Summary (1) [facility] Physical Therapy [facility] [address] [place] [address] [address] [place] [id number] / REHABILITATION SERVICES DISCHARGE SUMMARY MR#: [id number] Acct: [id number] Name: ISAI SOLORIO Rep #: [id number] : 1950 72 From: Blanquita Diamnod PT, Cert. MDT Referring Dr.: Dr. Jose Greer MD Status: REG RCR Insurance: MEDICARE PART A B [facility] Discharge Summary D/C summary: It has been my pleasure to treat ISAI SOLORIO referred by Dr. Jose Greer MD, with the diagnosis of CERVICAL DDD for a total of 16 visit(s). Discharge Date: 04/09/23 Please see the following information for a summary of their discharge status. Subjective Subjective: I CAN TURN MY HEAD BETTER NOW BUT I FEEL LIKE THERE IS SOMETHING WRONG AT THE TOP OF MY NECK. IT GIVES ME A HEADACHE. HE REPORTS THE PAIN COMES AND GOES. HE STATES IT WAS GONE UNTIL SATURDAY MORNING AND THEN IT STARTED FOR NO APPARENT REASON. HE STATES THE PAIN SEEMS TO START AT THE VERY TOP OF HIS SPINE AND THEN HE GETS PAIN IN DIFFERNT SPOTS IN HIS HEAD. HE REPORTS HIS NECK PAIN IS A LOT BETTER AND HE IS DOING HIS HEP WHICH HELPS BUT HE HASN'T BEEN ABLE TO GET HIS HEADACHE TO GO AWAY AND STAY AWAY. PATIENT REPORTS HIS NECK IS FEELING GOOD AND HE CAN TURN IT WITHOUT FEELING THE TIGHTNESS ON THE SIDES. TOOK ADVIL BEFORE WORK SATURDAY NIGHT AND THEN DIDN'T NOTICE THE CALABRESE DURING WORK UNTIL WOKE UP THIS MORNING. Pain Bilateral Neck: Pain Intensity (Out of 10): 0 HEADACHE: Pain Intensity (Out of 10): 3 Overall Improvement % Improvement: 70 Objective Objective/Function: PATIENT WAS SEEN TODAY FOR RE-ASSESSMENT OF PROGRESS TOWARD THE SET PT GOALS AND THE NEED FOR FURTHER PHYSICAL THERAPY VS READINESS FOR DISCHARGE. ALSO SEEN FOR HEP CHECK AND REINFORCEMENT OF IMPRORTANCE OF PROPER POSTURE CONTROL WITH HIS NECK CONDITION. OVER-ALL PATIENT HAS IMPROVED NECK ROM, DECREASED NECK PAIN BUT STILL HAS C/O INTERMITTENT HEAD SX'S. HE REQUIRES CUEING TO CORRECT HIS POSTURE AND POSTURE CORRECTION DECREASES HIS C/O OF HEAD SX'S. AFTER FURTHER EMPHASIZING THE PART HIS POSTURE APPEARS TO BE PLAYING WITH HIS HEADACHES HE STATES HE MIGHT NEED A NEW RECLINER BECAUSE HIS IS 32 YEARS OLD. THIS PT RECOMMENDS FOLLOW UP WITH DR. GREER IF HIS HEADACHES CONTINUE AND DO NOT RESOLVE WITH THE EX'S AND STRATEGIES HE HAS BEEN GIVEN. PATIENT IS AGREEABLE. UPON EXAM TODAY: PAUL UE ROM: WFL PAUL UE STRENGTH: 5/5. Cervical Mvmt Loss: Flex: NIL Pro: NIL Ext: MIN Ret: MOD RSB: MOD LSB: MOD R Rot: MOD L Rot: MIN PATIENT DENIES NECK PAIN WITH CERVICAL ROM TESTING ALL PLANES TODAY. HEAD PAIN BRIEFLY WENT AWAY AFTER NECK ROM TESTING AND THEN CAME BACK WHILE SITTING SLOUGHCED ON TREATMENT TABLE WITHOUT BACK SUPPORT. HEAD SX'S DECREASE WITH ACTIVE POSTURE CORRECTION AND ABOLISHED IN SITTING IN CHAIR WITH LUMBAR SUPPORT (TOWEL ROLL). Goals Goal 1:: PATIENT WILL REPORT AT LEAST 25% DECREASED HEAD AND NECK PAIN TO EASE ADL'S. Goal Progress: Goal Met Goal 2:: PATIENT WILL DEMONSTRATE INCREASED PAINFREE CERVICAL ROM IN ALL AFFECTED PLANES TO EASE ADL'S. Goal Progress: Progressing Goal 3:: PATIENT WILL DEMONSTRATED PROPER POSTURE CONTROL THROUGHOUT PT SESSION TO SHOW IMPROVED STRENGTH. Goal Progress: Progressing Goal 4:: PATIENT WILL BE INDEP WITH HEP FOR CONTINUED IMPROVEMENT ONCE FORMAL PHYSICAL THERPAY CONCLUDES. Goal Progress: Goal Met Plan Plan: D/C TO HEP AND FOLLOW UP WITH DR. GREER FOR HEADACHE NEEDED. PATIENT AGREEABLE. D/C Information d/c sentence: If there are questions or concerns regarding this patient's physical therapy, please feel free to call me at [phone]. Thank you for the referral of this patient. Sincerely, Blanquita Diamond, PT, Cert MDT Balance/Gait/Functional tests Balance/Special Test Scores Oswestry Neck Score: 1 Improvement % Improvement: 70 04/09/23 1423 CC: Dr. Jose Greer MD YOUSIF Signed Normal [facility] No Panel InformationOrdered By: Dilan Vance on 02-26-2023 Prostate Specific Antigen Total 4.91 ng/mL 0.0-4.0 [facility] Comment on above: This test was perfor med using the TPSA assay method [facility] the[facility] ([place], [place]) chemistry system. Values obtained with differentassay methods cannot be used interchangably.When changing PSA assays in the course of monitoring apatient, additional sequential testing should be carriedout to confirm baseline values. Basophil percentageOrdered B y: Jose Greer on 01-30-2023 Chloride [Moles/Vol] 108 mmol/L 98-[address] [facility] Cholesterol [Mass/Vol] 137 mg/dL <200 [facility] Comment on above: <200 mg/dL Desirable 200-240 mg/dL Borderline >240 mg/dL High Risk Glucose [Mass/Vol] 92 mg/dL 74-106 [facility] Potassium [Moles/Vol] 3.7 mmol/L 3.5-5.1 [facility] Sodium [Moles/Vol] 142 mmol/L 136-145 [facility] Triglyceride [Mass/Vol] 103 mg/dL <199 [facility] Comment on above: The drugs N-Acetylcy steine and Metamizole may falsely depress this assay.Serum Triglycerides Reference Interval Normal <150 mg/dL Borderline high 150 - 199 mg/dL High 200 - 499 mg/dL Very High > or = 500 mg/dL Laboratory - Chemistry and C hemistry - challengeOrdered By: Jose Greer on 01-30-2023 CO2 [Moles/Vol] 31.0 mmol/L 21.0-32.0 [facility] Urea nitrogen/Creatinine [Mass ratio] 19.8 mg/mg 10-20 [facility] No Panel InformationOrdered By: Jose Greer on 01-30-2023 Estimated GFR (MDRD) Amer 131 mL/min >60 [facility] Comment on above: GFR Calc Estimated GFR (MDRD) Non-Af Amer 108 mL/min >60 [facility] Comment on above: Non- GFR Calc Serum or plasma calcium fidelina urement (mass/volume)Ordered By: Jose Greer on 01-30-2023 Calcium [Mass/Vol] 8.9 mg/dL 8.5-10.1 [facility] Serum or plasma cholesterol in HDL measurement (mass/volume)Ordered By: Jose Greer on 01-30-2023 Cholesterol in HDL [Mass/Vol] 46 mg/dL >40 [facility] Comment on above: The drugs N-Acetylcy steine and Metamizole may falsely depress this assay. Reference Range HDL <40 mg/dL Low HDL Cholesterol HDL >or= 60 mg/dL High HDL Cholesterol Serum or plasma cholesterol in VLDL measurement (mass/volume)Ordered By: Jose Greer on 01-30-2023 Cholesterol in VLDL [Mass/Vol] 21 mg/dL 5-40 [facility] Serum or plasma creatinine m easurement (mass/volume)Ordered By: Jose Greer on 01-30-2023 Creatinine [Mass/Vol] 0.76 mg/dL 0.70-1.30 [facility] Comment on above: The validity of the calculated GFR & GFRAA in patients over 70 years has not been determined. Clinical correlation is essential. Serum or plasma low density lipoprotein (LDL) cholesterol measurement (mass/volume)Ordered By: Jose Greer on 01-30-2023 Cholesterol in LDL [Mass/Vol] 70 mg/dL 0-130 [facility] Serum or plasma urea nitroge n measurement (mass/volume)Ordered By: Jose Greer on 01-30-2023 Urea nitrogen [Mass/Vol] 15 mg/dL 7-18 [facility] Thin prep Papanicolaou smear with manual screeningOrdered By: Jose Greer on 01-30-2023 Thin prep Papanicolaou smear with manual screening 3 5-15 [facility] Culture, urineOrdered By: Dalia Vance on 10-09-2022 Bacteria identified Cx Nom (U) Culture exhibits no growth. [facility] Bacteria identified Cx Nom (U) Culture exhibits no growth. [facility] Absolute lymphocyte countOrd ered By: Lew Begum on 08-23-2022 Lymphocytes Auto (Unsp spec) [#/Vol] 1.14 10*3/uL 0.83-4.51 [facility] Basophil percentageOrdered B y: Lew Begum on 08-23-2022 Basophil percentage 10-25 SEEN /hpf 0-5 [facility] Basophils/100 WBC (Bld) 0.8 % 0-1 [facility] Chloride [Moles/Vol] 104 mmol/L 98-[address] [facility] Eosinophils/100 WBC (Bld) 3.4 % 0-5 [facility] Glucose [Mass/Vol] 110 mg/dL 74-106 [facility] Comment on above: Fasting Glucose resu lt from 100 to 125 mg/dL suggests IMPAIRED HOMEOSTASIS per A.D.A. criteria. Neutrophils (Bld) [#/Vol] 6.0 10*3/uL 2.0-7.7 [facility] Neutrophils/100 WBC (Bld) 71.4 % 47-70 [facility] Potassium [Moles/Vol] 3.5 mmol/L 3.5-5.1 [facility] Sodium [Moles/Vol] 140 mmol/L 136-145 [facility] WBC (Bld) [#/Vol] 8.3 10*3/uL 4.4-11.0 [facility] Bilirubin Test strip Ql (U)O rdered By: Lew Begum on 08-23-2022 Bilirubin Ql (U) Negative Negative [facility] Blood erythrocytes count (nu mber/volume)Ordered By: Lew Begum on 08-23-2022 RBC (Bld) [#/Vol] 4.32 10*6/uL 4.6-6.2 [facility] Blood hemoglobin measurement (mass/volume)Ordered By: Lew Begum on 08-23-2022 Hemoglobin (Bld) [Mass/Vol] 12.8 g/dL 13.0-16.5 [facility] Blood lymphocytes/100 leukoc ytesOrdered By: Lew Begum on 08-23-2022 Lymphocytes/100 WBC (Bld) 13.7 % 19-41 [facility] Blood manual differential co mment interpretation (narrative result)Ordered By: Lew Begum on 08-23-2022 Manual differential comment Jose Roberto (Bld) [Interp] SCANNED [facility] Blood monocytes/100 leukocyt esOrdered By: Lew Begum on 08-23-2022 Monocytes/100 WBC (Bld) 10.2 % 0-10 [facility] Blood platelet mean volumeOr dered By: Lew Begum on 08-23-2022 Platelet mean volume (Bld) [Entitic vol] 9.0 fL 6.2-12.0 [facility] Culture, urineOrdered By: Jaron Tariq on 08-23-2022 Bacteria identified Cx Nom (U) Burkholderia gladioli [facility] Determination of erythrocyte mean corpuscular volume (MCV)Ordered By: Lew Begum on 08-23-2022 MCV (RBC) [Entitic vol] 87.5 fL 80-94 [facility] Hematocrit Auto (Bld) [Volum e fraction]Ordered By: Lew Begum on 08-23-2022 Hematocrit (Bld) [Volume fraction] 37.8 % 40-54 [facility] Ketones Test strip Ql (U)Ord ered By: Lew Begum on 08-23-2022 Ketones Ql (U) Negative Negative [facility] Laboratory - Chemistry and C hemistry - challengeOrdered By: Lew Begum on 08-23-2022 CO2 [Moles/Vol] 27.0 mmol/L 21.0-32.0 [facility] Urea nitrogen/Creatinine [Mass ratio] 8.0 mg/mg 10-20 [facility] Laboratory - Hematology and Cell countsOrdered By: Lew Begum on 08-23-2022 Erythrocyte distribution width (RBC) [Entitic vol] 41.0 fL 35.1-43.9 [facility] Erythrocyte distribution width (RBC) [Ratio] 12.8 % 11.6-14.6 [facility] Immature granulocytes/100 WBC (Bld) 0.500 % 0.0-0.9 [facility] Comment on above: IG% - Immature Granu locytes (promyelocytes, myelocytes and metamyelocytes) > 1% indicates that a LEFT SHIFT is Present. MCH (RBC) [Entitic mass] 29.6 pg 27.0-32.0 [facility] Nucleated RBC/100 WBC (Bld) [Ratio] 0 % 0-5 [facility] MCHC Auto (RBC) [Mass/Vol]Or dered By: Lew Begum on 08-23-2022 MCHC (RBC) [Mass/Vol] 33.9 g/dL 32-36 [facility] Mucus LM Ql (Urine sed)Order ed By: Lew Begum on 08-23-2022 Mucus Ql (Urine sed) 0 SEEN /hpf [facility] Nitrite Test strip Ql (U)Ord ered By: Lew Begum on 08-23-2022 Nitrite Ql (U) Negative Negative [facility] No Panel InformationOrdered By: Lew Begum on 08-23-2022 Estimated Creatinine Clearance Calc 71.99 ml/min [facility] Estimated GFR (MDRD) Amer 132 mL/min >60 [facility] Comment on above: GFR Calc Estimated GFR (MDRD) Non-Af Amer 109 mL/min >60 [facility] Comment on above: Non- GFR Calc Platelets bldOrdered By: Shaun Begum on 08-23-2022 Platelets (Bld) [#/Vol] 300 10*3/uL 150-450 [facility] Protein Test strip Ql (U)Ord ered By: Lew Begum on 08-23-2022 Protein Ql (U) 30 mg/dl Negative [facility] Serum or plasma calcium fidelina urement (mass/volume)Ordered By: Lew Begum on 08-23-2022 Calcium [Mass/Vol] 8.7 mg/dL 8.5-10.1 [facility] Serum or plasma creatinine m easurement (mass/volume)Ordered By: Lew Begum on 08-23-2022 Creatinine [Mass/Vol] 0.75 mg/dL 0.70-1.30 [facility] Comment on above: The validity of the calculated GFR & GFRAA in patients over 70 years has not been determined. Clinical correlation is essential. Serum or plasma urea nitroge n measurement (mass/volume)Ordered By: Lew Begum on 08-23-2022 Urea nitrogen [Mass/Vol] 6 mg/dL 7-18 [facility] Squamous epithelial cells de tection in urine sediment by light microscopyOrdered By: Lew Begum on 08-23-2022 Epithelial cells.squamous LM Ql (Urine sed) 0 SEEN /hpf 0-5 [facility] Thin prep Papanicolaou smear with manual screeningOrdered By: Lew Begum on 08-23-2022 Thin prep Papanicolaou smear with manual screening 9 5-15 [facility] Urine blood detectionOrdered By: Lew Begum on 08-23-2022 RBC Ql (U) 25 /ul Negative [facility] RBC Ql (U) 0-5 SEEN /hpf 0-5 [facility] Urine clarityOrdered By: Shaun Begum on 08-23-2022 Clarity (U) Sl. Cloudy Clear [facility] Urine color determinationOrd ered By: Lew Begum on 08-23-2022 Color (U) Yellow Yellow [facility] Urine glucose detectionOrder ed By: Lew Begum on 08-23-2022 Glucose Ql (U) Normal mg/dl Normal [facility] Urine leukocyte esterase det ection by dipstickOrdered By: Lew Begum on 08-23-2022 Leukocyte esterase Test strip Ql (U) 25 /ul Negative [facility] Urine pHOrdered By: Lew whitney on 08-23-2022 pH (U) 7.0 [pH] 5.0 - 8.0 [facility] Urine sediment bacteria coun t by microscopy (number/high power field)Ordered By: Lew Begum on 08-23-2022 Bacteria LM.HPF (Urine sed) [#/Area] RARE /hpf None Seen [facility] Urine specific gravity measu rementOrdered By: Lew Begum on 08-23-2022 Specific gravity (U) [Rel density] 1.010 1.002-1.030 [facility] Urobilinogen Auto test strip Ql (U)Ordered By: Lew Begum on 08-23-2022 Urobilinogen Ql (U) 1 mg/dl Normal [facility] Culture, urineOrdered By: Dr Luan Greer on 07-25-2022 Bacteria identified Cx Nom (U) Positive [facility] Basophil percentageOrdered B y: Dr. Greer on 07-23-2022 Bilirubin [Mass/Vol] 0.70 mg/dL 0.20-1.[address] [facility] Comment on above: For patients on eltr ombopag therapy, use of Dimension [place] TBIL is not recommended. Chloride [Moles/Vol] 109 mmol/L 98-[address] [facility] Cholesterol [Mass/Vol] 157 mg/dL <200 [facility] Comment on above: <200 mg/dL Desirable 200-240 mg/dL Borderline >240 mg/dL High Risk Glucose [Mass/Vol] 111 mg/dL 74-106 [facility] Comment on above: Fasting Glucose resu lt from 100 to 125 mg/dL suggests IMPAIRED HOMEOSTASIS per A.D.A. criteria. Potassium [Moles/Vol] 3.5 mmol/L 3.5-5.1 [facility] Protein [Mass/Vol] 6.9 g/dL 6.4-8.2 [facility] Sodium [Moles/Vol] 131 mmol/L 136-145 [facility] Triglyceride [Mass/Vol] 132 mg/dL <199 [facility] Comment on above: The drugs N-Acetylcy steine and Metamizole may falsely depress this assay.Serum Triglycerides Reference Interval Normal <150 mg/dL Borderline high 150 - 199 mg/dL High 200 - 499 mg/dL Very High > or = 500 mg/dL Bilirubin Test strip Ql (U)O rdered By: Dr. Greer on 07-23-2022 Bilirubin Ql (U) Negative Negative [facility] Culture, urineOrdered By: Merced Greer on 07-23-2022 Bacteria identified Cx Nom (U) Positive [facility] Ketones Test strip Ql (U)Ord ered By: Dr. Greer on 07-23-2022 Ketones Ql (U) Negative Negative [facility] Laboratory - Chemistry and C hemistry - challengeOrdered By: Dr. Greer on 07-23-2022 ALP [Catalytic activity/Vol] 40 U/L 45-117 [facility] ALT [Catalytic activity/Vol] 24 U/L 16-61 [facility] CO2 [Moles/Vol] 28.0 mmol/L 21.0-32.0 [facility] Globulin (S) [Mass/Vol] 3.1 g/dL 2.2-4.2 [facility] Urea nitrogen/Creatinine [Mass ratio] 16.2 mg/mg 10-20 [facility] Nitrite Test strip Ql (U)Ord ered By: Dr. Greer on 07-23-2022 Nitrite Ql (U) Negative Negative [facility] No Panel InformationOrdered By: Dr. Greer on 07-23-2022 Estimated GFR (MDRD) Amer 149 mL/min >60 [facility] Comment on above: GFR Calc Estimated GFR (MDRD) Non-Af Amer 123 mL/min >60 [facility] Comment on above: Non- GFR Calc Prostate Specific Antigen Total 6.39 ng/mL 0.0-4.0 [facility] Comment on above: This test was perfor med using the TPSA assay method [facility] chemistry system. Values obtained with differentassay methods cannot be used interchangably.When changing PSA assays in the course of monitoring apatient, additional sequential testing should be carriedout to confirm baseline values. Protein Test strip Ql (U)Ord ered By: Dr. Greer on 07-23-2022 Protein Ql (U) 100 mg/dl Negative [facility] Serum or plasma albumin fidelina urement (mass/volume)Ordered By: Dr. Greer on 07-23-2022 Albumin [Mass/Vol] 3.8 g/dL 3.2-5.0 [facility] Serum or plasma albumin/glob ulin mass ratioOrdered By: Dr. Greer on 07-23-2022 Albumin/Globulin [Mass ratio] 1.2 {ratio} 0.9-2.4 [facility] Serum or plasma calcium fidelina urement (mass/volume)Ordered By: Dr. Greer on 07-23-2022 Calcium [Mass/Vol] 8.7 mg/dL 8.5-10.1 [facility] Serum or plasma cholesterol in HDL measurement (mass/volume)Ordered By: Dr. Greer on 07-23-2022 Cholesterol in HDL [Mass/Vol] 41 mg/dL >40 [facility] Comment on above: The drugs N-Acetylcy steine and Metamizole may falsely depress this assay. Reference Range HDL <40 mg/dL Low HDL Cholesterol HDL >or= 60 mg/dL High HDL Cholesterol Serum or plasma cholesterol in VLDL measurement (mass/volume)Ordered By: Dr. Greer on 07-23-2022 Cholesterol in VLDL [Mass/Vol] 26 mg/dL 5-40 [facility] Serum or plasma creatinine m easurement (mass/volume)Ordered By: Dr. Greer on 07-23-2022 Creatinine [Mass/Vol] 0.68 mg/dL 0.70-1.30 [facility] Comment on above: The validity of the calculated GFR & GFRAA in patients over 70 years has not been determined. Clinical correlation is essential. Serum or plasma low density lipoprotein (LDL) cholesterol measurement (mass/volume)Ordered By: Dr. Greer on 07-23-2022 Cholesterol in LDL [Mass/Vol] 90 mg/dL 0-130 [facility] Serum or plasma urea nitroge n measurement (mass/volume)Ordered By: Dr. Greer on 07-23-2022 Urea nitrogen [Mass/Vol] 11 mg/dL 7-18 [facility] Thin prep Papanicolaou smear with manual screeningOrdered By: Dr. Greer on 07-23-2022 Thin prep Papanicolaou smear with manual screening 15 U/L 15-37 [facility] Thin prep Papanicolaou smear with manual screening -6 5-15 [facility] Urine blood detectionOrdered By: Dr. Greer on 07-23-2022 RBC Ql (U) 250 /ul Negative [facility] Urine clarityOrdered By: Dr. Greer on 07-23-2022 Clarity (U) Cloudy Clear [facility] Urine color determinationOrd ered By: Dr. Greer on 07-23-2022 Color (U) Red Yellow [facility] Urine glucose detectionOrder ed By: Dr. Greer on 07-23-2022 Glucose Ql (U) Normal mg/dl Normal [facility] Urine leukocyte esterase det ection by dipstickOrdered By: Dr. Greer on 07-23-2022 Leukocyte esterase Test strip Ql (U) 100 /ul Negative [facility] Urine pHOrdered By: Dr. Susan pak on 07-23-2022 pH (U) 7.0 [pH] 5.0 - 8.0 [facility] Urine specific gravity measu rementOrdered By: Dr. Greer on 07-23-2022 Specific gravity (U) [Rel density] 1.005 1.002-1.030 [facility] Urobilinogen Auto test strip Ql (U)Ordered By: Dr. Greer on 07-23-2022 Urobilinogen Ql (U) Normal mg/dl Normal [facility] Basophil percentageon 2021 Bilirubin [Mass/Vol] 0.60 mg/dL 0.20-1.[address] [facility] Work Phone: Comment on above: For patients on eltr ombopag therapy, use of Dim[place] TBIL is not recommended. Chloride [Moles/Vol] 105 mmol/L 98-[address] [facility] Work Phone: Cholesterol [Mass/Vol] 195 mg/dL <200 [facility] Work Phone: Comment on above: <200 mg/dL Desirable 200-240 mg/dL Borderline >240 mg/dL High Risk Glucose [Mass/Vol] 106 mg/dL 74-106 [facility] Work Phone: Comment on above: Fasting Glucose resu lt from 100 to 125 mg/dL suggests IMPAIRED HOMEOSTASIS per A.D.A. criteria. Potassium [Moles/Vol] 4.7 mmol/L 3.5-5.1 [facility] Work Phone: [phone] Protein [Mass/Vol] 6.8 g/dL 6.4-8.2 [facility] Work Phone: [phone] Sodium [Moles/Vol] 138 mmol/L 136-145 [facility] Work Phone: Triglyceride [Mass/Vol] 73 mg/dL <199 [facility] Work Phone: [phone] Comment on above: The drugs N-Acetylcy steine and Metamizole may falsely depress this assay.Serum Triglycerides Reference Interval Normal <150 mg/dL Borderline high 150 - 199 mg/dL High 200 - 499 mg/dL Very High > or = 500 mg/dL Laboratory - Chemistry and C hemistry - challengeon 01-23-2022 ALP [Catalytic activity/Vol] 43 U/L 45-117 [facility] Work Phone: [phone] ALT [Catalytic activity/Vol] 43 U/L 16-61 [facility] Work Phone: [phone] CO2 [Moles/Vol] 31.0 mmol/L 21.0-32.0 [facility] Work Phone: [phone] Globulin (S) [Mass/Vol] 2.9 g/dL 2.2-4.2 [facility] Work Phone: [phone] Urea nitrogen/Creatinine [Mass ratio] 21.9 mg/mg 10-20 [facility] Work Phone: No Panel Informationon 01-23 Estimated GFR (MDRD) Amer 128 mL/min >60 [facility] Work Phone: Comment on above: GFR Calc Estimated GFR (MDRD) Non-Af Amer 106 mL/min >60 [facility] Work Phone: Comment on above: Non- GFR Calc Prostate Specific Antigen Total 5.47 ng/mL 0.0-4.0 [facility] Work Phone: Comment on above: This test was perfor med using the TPSA assay method for the[employer] chemistry system. Values obtained with differentassay methods cannot be used interchangably.When changing PSA assays in the course of monitoring apatient, additional sequential testing should be carriedout to confirm baseline values. Serum or plasma albumin fidelina urement (mass/volume)on 01-23-2022 Albumin [Mass/Vol] 3.9 g/dL 3.2-5.0 [facility] Work Phone: Serum or plasma albumin/glob ulin mass ratioon 01-23-2022 Albumin/Globulin [Mass ratio] 1.3 {ratio} 0.9-2.4 [facility] Work Phone: Serum or plasma calcium fidelina urement (mass/volume)on 01-23-2022 Calcium [Mass/Vol] 9.2 mg/dL 8.5-10.1 [facility] Work Phone: Serum or plasma cholesterol in HDL measurement (mass/volume)on 01-23-2022 Cholesterol in HDL [Mass/Vol] 58 mg/dL >40 [facility] Work Phone: Comment on above: The drugs N-Acetylcy steine and Metamizole may falsely depress this assay. Reference Range HDL <40 mg/dL Low HDL Cholesterol HDL >or= 60 mg/dL High HDL Cholesterol Serum or plasma cholesterol in VLDL measurement (mass/volume)on 01-23-2022 Cholesterol in VLDL [Mass/Vol] 15 mg/dL 5-40 [facility] Work Phone: Serum or plasma creatinine m easurement (mass/volume)on 01-23-2022 Creatinine [Mass/Vol] 0.78 mg/dL 0.70-1.30 [facility] Work Phone: Comment on above: The validity of the calculated GFR & GFRAA in patients over 70 years has not been determined. Clinical correlation is essential. Serum or plasma low density lipoprotein (LDL) cholesterol measurement (mass/volume)on 01-23-2022 Cholesterol in LDL [Mass/Vol] 122 mg/dL 0-130 [facility] Work Phone: Serum or plasma urea nitroge n measurement (mass/volume)on 01-23-2022 Urea nitrogen [Mass/Vol] 17 mg/dL 7-18 [facility] Work Phone: [phone] Thin prep Papanicolaou smear with manual screeningon 01-23-2022 Thin prep Papanicolaou smear with manual screening 22 U/L 15-37 [facility] Work Phone: Thin prep Papanicolaou smear with manual screening 2 5-15 [facility] Work Phone: No Panel Informationon 07-25 Prostate Specific Antigen Screen 5.49 ng/mL 0.00-4.00 [facility] Work Phone: Comment on above: This test was perfor med using the TPSA assay method for the[employer] chemistry system. Values obtained with differentassay methods cannot be used interchangably.When changing PSA assays in the course of monitoring apatient, additional sequential testing should be carriedout to confirm baseline values. Prostate Specific Antigen Total 5.49 ng/mL 0.0-4.0 [facility] Work Phone: Comment on above: This test was perfor med using the TPSA assay method for the[employer] chemistry system. Values obtained with differentassay methods cannot be used interchangably.When changing PSA assays in the course of monitoring apatient, additional sequential testing should be carriedout to confirm baseline values. History and Physical - Surgi dave Update < 30 dayson 10-29-2019 History and Physical - Surgical Update < 30 days History & Physical Reviewed: I have reviewed the History and Physical dated: 23-Oct-2019 History and Physical reviewed and relevant findings noted. Patient examined to review pertinent physical findings.: No significant changes Home Medications Reviewed: no changes noted Allergies Reviewed: no changes noted Consent: COVID-19 Consent: COVID-19 Risk ConsentSurgeon has reviewed poole risks related to the risk of marielle COVID-19 and if they contract COVID-19 what the risks are. Electronic Signatures: Jose Luis Anderson) (Signed 29-Oct-2019 12:09) Authored: History & Physical Reviewed, Consent, Signatures/Attestation Last Updated: 29-Oct-2019 12:09 by Jose Luis Anderson) [facility] Preop Checkliston 10-29-2019 Preop Checklist Preop Checklist: Preop Checklist: Arrival [id number] Arrival Time12:07 Procedure Typeright cataract surgery Temperature C36.4 degrees C Temperature F97.6 degrees F Heart Rate79 beats per minute Respiratory Rate16 breath per minute Blood Pressure Iinltcmz326 mm/Hg Blood Pressure Mozdjwhbe57 mm/Hg NPO [id number] 23:00 ID Band Onyes Allergy Bandno known allergies Consent Signedyes H&P Completeyes Anesthesia Assessment Completedyes EKG Performednot ordered Chest X-Ray Performednot ordered HCG Urine TestN/A Chlorhexadine Bath Givennot applicable Nasal Antiseptic Appliednot applicable Hair Washednot applicable Soap and water bath with hair shampoo the night before surgerynot applicable Hat placed on infant prior to transportnot applicable SCD's Appliednot applicable KIMBERLYN Hose Appliednot ordered Denturesnot applicable Prostheticsnot applicable Hearing Aidsnot applicable Valuables Securedleft in patient room Glasses / Contactsnot applicable Bowel Prepno Cardiovascular Assessment: Apicalregular Extremitieswarm Respiratory Assessment: Respirationsunlabored Air Exchangegood Breath Soundsclear Neurological Assessment: Level of Consciousnessalert, oriented Mobilitymoves all extremities Able to Express Selfyes Age Appropriateyes Emotional Statuscalm Preop Education: Surgical Site Infection Preventionyes Pain Scales and Managementyes Language / Communication: Language / CommunicationEnglish Electronic Signatures: Sobeida Elizabeth (RADHA) (Signed 29-Oct-2019 12:18) Authored: Preop Checklist Last Updated: 29-Oct-2019 12:18 by Sobeida Elizabeth (RADHA) Normal [facility] CORONAVIRUS 2019, SCREEN ASY MPTOMATICon 10-28-2019 CORONAVIRUS 2019,PCR NOT DETECTED Normal Not Detected [facility] Comment on above: Result Comment: This assay is designed to detect the N, ORF1ab and/or S genes of SARS-CoV-2 via nucleic acid amplification. A Negative (NOT DETECTED) result does not preclude 2019-nCoV infection since the adequacy of sample collection and/or low viral burden may result in presence of viral nucleic acids below the clinical sensitivity of this test method. Negative (NOT DETECTED) result should not be used as the sole basis for treatment or other patient management decisions. Rather negative results should be combined with clinical observations, patient history, and epidemiological information to make patient management decisions. Fact sheet for providers: https://www.fda.gov/media/767620/download Fact sheet for patients: https://www.fda.gov/media/799162/download This test has received FDA Emergency Use Authorization (EUA) and has been verified by [facility] ([facility]). This test is only authorized for the duration of time that circumstances exist to justify the authorization of the emergency use of in vitro diagnostic tests for the detection of SARS-CoV-2 virus and/or diagnosis of COVID-19 infection under section 564(b)(1) of the Act, 21 U.S.C. 360bbb-3(b)(1), unless the authorization is terminated or revoked sooner. [facility] is certified under CLIA-88 as qualified to perform high complexity testing. Testing is performed in the [facility] laboratories located at [address] [place] [address]. Performed By: #### C OVSC #### [facility] [id number] [place] [address]. 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), center location, insurance information, remove jewerly/piercings Prep Instructions Reviewedyes Instructed to Have No Fluids Aftermidnight Stated Reason for Admissionright cataract surgery Primary Contact Name and NumberBilly darden- [phone] Patient Belongingsremains with patient Medications Brought to Hospitalno General Health: Weight in kg96.3 kilogram(s) Weight in mjl917.3 pound(s) Weight Methodactual (measured) Scale Typestanding Height in feet5 feet Height in znmayo03 inch(es) Height in cm180.3 centimeter(s) Height Methodstated BMI (kg/m2)29.623 square meter Patient or Family Member Reaction to Anesthesiano previous reaction; no previous family member reaction Blood Avoidance/Restrictionsn one Health Mgmt: Symptoms/Conditions Managed at Homecardiovascular Cardiovascular Symptoms/Conditionshype rtension Barriers to Managing Healthnone Relationship/Environ: Resource/Environmental Concernsnone Substance: Current or Former Substance Use never: Cigarette/Tobacco, e-Cigarette/Vaping, Street Drugs YES: Alcohol Alcohol Use Statuscurrent alcohol Alcohol Amount1-2 drinks Alcohol Frequencymonthly or less Alcohol Typebeer Risk Screens: COVID-19 Screening Completedno exposure or symptoms Advance Directive/DNRno Advance Directive Information Givenpatient/family declined During the past month, have you often been bothered by feeling down, depressed or hopelessno During the past month, have you often had little interest or pleasure in doing thingsno Have you had any thoughts of harming yourselfno Have you had any thoughts of harming anyone elseno Are you or have you been threatened or abused physically,emotionally or sexually abused by anyoneno Do you feel UNSAFE going back to the place you are livingno Patient is Able to be Assessed for Learningyes Factors Influencing Readiness to Learnanxiety Factors that Impact Ability to Learnnone Devices/Methods Used to Communicatenone Learning Preferencesverbal instruction; written material Cultural Considerationsnone Developmental Considerationsnone Caodaism Considerationsnone Other learner availableno Falls RiskPatient location auto qualifies him/her for HIGH RISK. Are there any cultural, spiritual, confucianist practices/values/needs that are important for us to knowno Pain Scalenumerical 0-10 Pain Scale Educationteaching provided Current Pain Level0 = None Acceptable Pain Level8 = Severe Chronic Painno Information Review: Allergies, Home Meds and Significant Events have been Reviewed and Verified with Patient/Familyyes Allergy, Intolerance, Adverse Event: Intolerances: Pollen: Environment, Congestion, Active Problem List: Medical History: Hypercholesterolemia: Catalog Name: Pure hypercholesterolemia, unspecified Hypertension: Catalog Name: Essential (primary) hypertension Cataract: Catalog Name: Unspecified cataract Surg History: History of eye surgery: Catalog Name: Other specified postprocedural states History of hernia repair: Catalog Name: Other specified postprocedural states Electronic Signatures: Sobeida Elizabeth (RADHA) (Signed 29-Oct-2019 12:13) Authored: Profile, Additional Information Eloisa Higuera) (Signed 28-Oct-2019 08:14) Authored: Profile, Additional Information Last Updated: 29-Oct-2019 12:13 by Sobeida Elizabeth) Normal [facility] CORONAVIRUS 2019, SCREEN ASY MPTOMATICon 10-27-2019 Lab Specimen Source Nasal, Nasopharyngeal Normal [facility] Comment on above: Performed By: #### C OVSC #### [facility] [address] [place] [address] No Panel Information [facility] Vital Signs Date Time Vital Sign Value Performing Clinician Faci lity 09-19-2022 15:18-0400 Body temperature 98.6 [degF] [facility] 09-19-2022 15:18-0400 Diastolic blood pressure 78 mm[Hg] [facility] 09-19-2022 15:18-0400 Heart rate 86 /min [facility] 09-19-2022 15:18-0400 Respiratory rate 16 /min [facility] 09-19-2022 15:18-0400 SaO2% (BldA) [Mass fraction] 97 % [facility] 09-19-2022 15:18-0400 Systolic blood pressure 153 mm[Hg] [facility] 09-19-2022 08:45-0400 Body height 177.8 cm [facility] 09-19-2022 08:45-0400 Body mass index (BMI) [Ratio] 29.1 kg/m2 [facility] 09-19-2022 08:45-0400 Body weight 92.07 kg [facility] 08-23-2022 10:40-0400 Diastolic blood pressure 76 mm[Hg] [facility] 08-23-2022 10:40-0400 Systolic blood pressure 140 mm[Hg] [facility] 08-23-2022 07:52-0400 Body height 177.8 cm [facility] 08-23-2022 07:52-0400 Body mass index (BMI) [Ratio] 29.2 kg/m2 [facility] 08-23-2022 07:52-0400 Body temperature 96.7 [degF] [facility] 08-23-2022 07:52-0400 Body weight 92.44 kg [facility] 08-23-2022 07:52-0400 Heart rate 87 /min [facility] 08-23-2022 07:52-0400 Respiratory rate 18 /min [facility] 08-23-2022 07:52-0400 SaO2% (BldA) [Mass fraction] 98 % [facility] 07-23-2022 10:46-0400 Diastolic blood pressure 103 mm[Hg] Jose Luis Anderson MD Work Phone: [facility] 07-23-2022 10:46-0400 Heart rate 62 /min Jose Luis Anderson MD Work Phone: [facility] 07-23-2022 10:46-0400 Systolic blood pressure 182 mm[Hg] Jose Luis Anderson MD Work Phone: [facility] Encounters Encounter Date Encounter Type Care Provider Facility Start: 03-17-2024 End: 03-17-2024 ambulatory Zuleika Teran Facility:[facility] Start: 02-14-2024 End: 02-14-2024 ambulatory Chela Greer Facility:[facility] Start: 12-05-2023 ambulatory Robert Payan Facility:[facility] Start: 12-05-2023 End: 12-05-2023 ambulatory [facility] Facility[facility] Start: 12-02-2023 Encounter for preprocedural laboratory examination Regino Proano [facility] Start: 11-08-2023 End: 11-08-2023 ambulatory Chela Greer Facility:[facility] Start: 11-07-2023 End: 11-07-2023 ambulatory Dilan Vance Facility:[facility] Start: 08-13-2023 End: 08-13-2023 ambulatory Chela Greer Facility:[facility] Start: 04-24-2023 End: 04-24-[address] Jose Greer Work Phone: [facility] Work Phone: Start: 04-24-2023 End: 04-24-[address] Jose Greer Work Phone: [facility] Work Phone: Start: 04-24-2023 End: 04-24-2023 ambulatory Chela Greer Facility:[facility] Start: 04-03-2023 End: 04-03-[address] Jose Greer Work Phone: [facility] Work Phone: Start: 04-03-2023 End: 04-03-[address] Jose Greer Work Phone: [facility]-Physical Therapy Work Phone: Start: 03-11-[address] Palmer Greer Work Phone: [facility]-Physical Therapy Work Phone: Start: 03-07-2023 Non-patient / Non-visit Dr. Merced Greer Work Phone: [facility] Start: 03-07-2023 End: 03-07-[address] Jose Greer Work Phone: [facility] Work Phone: Start: 03-07-2023 End: 03-07-[address] Jose Greer Work Phone: [facility]-Cardiovascula r Services Work Phone: Start: 03-01-2023 Registered Recurring [facility] Work Phone: Start: 02-26-2023 End: 02-26-2023 ambulatory [facility] Work Phone: Start: 02-26-2023 End: 02-26-2023 Patient encounter procedure [facility] Start: 02-07-2023 End: 02-07-2023 ambulatory [facility] Work Phone: Start: 02-07-2023 End: 02-07-2023 Patient encounter procedure [facility]-Cat Scan, [facility] Work Phone: Start: 02-05-2023 End: 02-05-2023 ambulatory [facility] Work Phone: Start: 02-05-2023 End: 02-05-2023 [facility] Start: 01-30-2023 End: 01-30-2023 ambulatory [facility] Work Phone: Start: 01-30-2023 End: 01-30-2023 Patient encounter procedure [facility] Start: 10-09-2022 End: 10-09-2022 ambulatory [facility] Work Phone: Start: 10-09-2022 End: 10-09-2022 Patient encounter procedure [facility]-Laboratory, Specimen Work Phone: Start: 09-19-2022 End: 09-19-2022 Admission to same day surgery center [facility]-Surgical Day Care Start: 09-19-2022 End: 09-19-2022 ambulatory [facility] Work Phone: Start: 08-24-2022 End: 08-24-2022 ambulatory CHELA GREER Facility:[facility] Start: 08-24-2022 End: 08-24-2022 Patient encounter procedure Jose Luis Anderson MD Work Phone: Ophthalmology Comment on above: 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); Irregular astigmatism of left eye; History of radial keratotomy; Pseudophakia, right eye; High myopia, bilateral; Essential hypertension Start: 08-23-2022 End: 08-23-2022 Emergency department patient visit [facility]-Emergency Department Work Phone: Start: 08-06-2022 End: 08-06-2022 ambulatory [facility] Work Phone: Start: 08-06-2022 End: 08-06-2022 Patient encounter procedure [facility] Scan, [facility] Start: 07-23-2022 End: 07-23-2022 ambulatory JOSE LUIS ANDERSON [facility] Work Phone: Start: 07-23-2022 End: 07-23-2022 Patient encounter procedure Jose Luis Anderson MD Work Phone: [facility] Comment on above: 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); Irregular astigmatism, left eye; History of radial keratotomy; High myopia, bilateral; 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; Essential hypertension; Hypercholesteremia Start: 02-05-2022 End: 02-05-2022 ambulatory CHELA GREER Facility:[facility] Start: 02-05-2022 End: 02-05-2022 Patient encounter procedure Jose Luis Anderson MD Work Phone: Ophthalmology Comment on above: 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); Pseudophakia of right eye; 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 Jose Greer Work Phone: Start: 04-24-2023 MRI of neck vessels with contrast Dr. Jose Greer Work Phone: Start: 02-07-2023 CT of thorax with contrast Start: 02-05-2023 X-ray of cervical spine Start: 10-09-2022 Urine culture Start: 09-19-2022 Cysto,Transurethra R esec BladderTum MitC (Not Applicable) Start: 08-24-2022 IOL BIOMETRY W/ IOL CALC OS (LEFT EYE) Jose Luis Anderson MD Work Phone: Start: 08-24-2022 Computerized corneal topography uni/bi Jose Luis Anderson MD Work Phone: Start: 08-23-2022 Urine culture Start: 08-06-2022 Computed tomography of abdomen and pelvis with contrast Start: 07-23-2022 Urine culture Start: 07-23-2022 End: 07-23-2022 Fundus photography w/interpretation & report Jose Luis Anderson MD Work Phone: Start: 07-23-2022 IOL BIOMETRY W/ IOL CALC OS (LEFT EYE) Jose Luis Anderson MD Work Phone: Start: 07-23-2022 Computerized corneal topography uni/bi Jose Luis Anderson MD Work Phone: Start: 02-05-2022 Fundus photography w/interpretation & report Jose Luis Anderson MD Work Phone: Urine culture Plan of Treatment Date Care Activity Detail Author Start: 10-19-2022 Influenza vaccination INFLUENZA (#1) [facility] Start: 09-19-2022 Anes transurethral resection of bladder tumor ANESTH BLADDER TUMOR SURG [facility] Start: 09-19-2022 Cystourethroscopy w/dest &/rmvl tumor large CYSTOSCOPY AND TREATMENT [facility] Start: 09-19-2022 [facility] Start: 09-19-2022 Ambulation without limitation [facility] Start: 09-19-2022 Medication education [facility] Start: 09-19-2022 Patient discharge [facility] Start: 09-19-2022 Planned voiding [facility] Start: 09-19-2022 Taking patient vital signs [facility] Start: 09-19-2022 [facility] Start: 08-23-2022 Bacteria identified in Urine by Culture Urine Culture [facility] Start: 08-23-2022 [facility] Start: 02-18-2022 ADVANCE DIRECTIVE DISCUSSION ADVANCE DIRECTIVE DISCUSSION [facility] Start: 02-18-2022 DEPRESSION ASSESSMENT DEPRESSION ASSESSMENT [facility] Start: 02-18-2021 ADVANCE DIRECTIVE DISCUSSION ADVANCE DIRECTIVE DISCUSSION [facility] Start: 02-18-2021 DEPRESSION ASSESSMENT DEPRESSION ASSESSMENT [facility] Start: 2017 PNEUMOCOCCAL: 65+ (1 - PCV) PNEUMOCOCCAL: 65+ (1 - PCV) [facility] Start: 2002 SHINGRIX VACCINE (1 of 2) SHINGRIX VACCINE (1 of 2) [facility] Start: 1997 COLOGUARD (FIT-DNA) COLOGUARD (FIT-DNA) [facility] Start: 1997 Colonoscopy COLONOSCOPY [facility] Start: 1997 COLORECTAL CANCER SCREENING COLORECTAL CANCER SCREENING [facility] Start: [address] COLONOGRAPHY [facility] Start: 1997 DIABETES SCREEN DIABETES SCREEN [facility] Start: 1997 FECAL OCCULT BLOOD FECAL OCCULT BLOOD [facility] Start: 1997 SIGMOIDOSCOPY SIGMOIDOSCOPY [facility] Start: 12-10-1987 LIPID SCREEN LIPID SCREEN [facility] Start: 12-10-1971 Urine microalbumin profile DTAP,TDAP,TD (1 - Tdap) [facility] Start: 1970 ANNUAL PCP TEAM CHRONIC DISEASE VISIT ANNUAL PCP TEAM CHRONIC DISEASE VISIT [facility] Start: 1970 BP CONTROLLED (<130/80) BP CONTROLLED (<130/80) [facility] in Start: 1970 HEPATITIS C SCREENING HEPATITIS C SCREENING [facility] Start: 1950 ABDOMINAL AORTIC ANEURYSM SCREENING ABDOMINAL AORTIC ANEURYSM SCREENING [facility] Patient Education [facility] Work Phone: Patient referral [facility] Work Phone: [facility] Payers Date Payer Category Payer Self-pay [id number] 2019 Private Health Insurance [facility] AARP SUPPLEMENT [id number] 2019-Present [phone] [address] [place] [address] Indemnity [id number] 2019 Unknown [id number] 2018 Medicare [id number] 2018 Medicare MEDICARE MEDICAR E A AND B [id number] 2018-Present [phone] [place] [address] Medicare [id number] 2016 Unknown [facility] KEVIN [id number] Unknown [id number] Unknown [id number] Unknown [id number] Unknown [id number] Unknown [id number] Unknown [id number] Unknown [id number] Unknown [id number] Unknown [id number] Social History Date Type Detail [facility] Work Phone: Start: 1950 Sex Assigned At Male [facility] Start: 09-19-2019 [facility] History of tobacco use Current smoker [facility] Start: 09-19-2019 Tobacco use and exposure Smokeless tobacco non-user [facility] Start: 02-05-2022 End: 08-24-2022 Alcohol intake Ex-drinker (finding) [facility] Start: 09-19-2019 Tobacco Comment patient only s moked socially for couple years before age 22 [facility] Start: 1950 Sex Assigned At Not on file [facility] Start: 08-23-2022 End: 09-12-2022 Tobacco smoking status [facility] Unknown if ever smoked [facility] Goals Date Patient Goal Desired Activity /State Functional Status Date Assessment Result Facility 09-19-2022 Functional status [employer] [facility] Work Phone: Mental Status Date Assessment Result Facility 09-19-2022 Cognitive function Voice/Name [facility] Work Phone: Clinical Notes 09-19-2019 to 04-09-2023 Note Date & Type Note Facility 04-09-2023 Discharge summary Note Date/Time April 09, 2023 2:23pm [facility] Physical Therapy [facility] [address] [place] [address] / REHABILITATION SERVICES DISCHARGE SUMMARY MR#: [id number] Acct: [id number] Name: ISAI SOLORIO Rep #: [id number] : 1950 72 From: Blanquita Diamond PT, Cert. MDT Referring Dr.: Dr. Jose Greer MD Statu s: REG RCR Insurance: MEDICARE PART A B [facility] Discharge Summary D/C summary: It has been my pleasure to treat ISAI SOLORIO referred by Dr. Jose Greer MD, with the diagnosis of CERVICAL DDD for a total of 16 visit(s). Discharge Date: 04/09/23 Please see the following information for a summary of their discharge status. Subjective Subjective: I CAN TURN MY HEAD BETTER NOW BUT I FEEL LIKE THERE IS SOMETHING WRONG AT THE TOP OF MY NECK. IT GIVES ME A HEADACHE. HE REPORTS THE PAIN COMES AND GOES. HE STATES IT WAS GONE UNTIL SATURDAY MORNING AND THEN IT STARTED FOR NO APPARENT REASON. HE STATES THE PAIN SEEMS TO START AT THE VERY TOP OF HIS SPINE AND THEN HE GETS PAIN IN DIFFERNT SPOTS IN HIS HEAD. HE REPORTS HIS NECK PAIN IS A LOT BETTER AND HE IS DOING HIS HEP WHICH HELPS BUT HEHASN'T BEEN ABLE TO GET HIS HEADACHE TO GO AWAY AND STAY AWAY. PATIENT REPORTS HIS NECK IS FEELING GOOD AND HE CAN TURN IT WITHOUT FEELING THE TIGHTNESS ON THE SIDES. TOOK ADVIL BEFORE WORK SATURDAY NIGHT AND THEN DIDN'T NOTICE THE CALABRESE DURING WORK UNTIL WOKE UP THIS MORNING. Pain Bilateral Neck: Pain Intensity (Out of 10): 0 HEADACHE: Pain Intensity (Out of 10): 3 Overall Improvement % Improvement: 70 Objective Objective/Function: PATIENT WAS SEEN TODAY FOR RE-ASSESSMENT OF PROGRESS TOWARD THE SET PT GOALS AND THE NEED FOR FURTHER PHYSICAL THERAPY VS READINESS FOR DISCHARGE. ALSO SEEN FOR HEP CHECK AND REINFORCEMENT OF IMPRORTANCE OF PROPER POSTURE CONTROL WITH HIS NECK CONDITION. OVER-ALL PATIENT HAS IMPROVED NECK ROM,DECREASED NECK PAIN BUT STILL HAS C/O INTERMITTENT HEAD SX'S. HE REQUIRES CUEING TO CORRECT HIS POSTURE AND POSTURE CORRECTION DECREASES HIS C/O OF HEAD SX'S. AFTER FURTHER EMPHASIZING THE PART HIS POSTURE APPEARS TO BE PLAYING WITHHIS HEADACHES HE STATES HE MIGHT NEED A NEW RECLINER BECAUSE HIS IS 32 YEARS OLD. THIS PT RECOMMENDS FOLLOW UP WITH DR. GREER IF HIS HEADACHES CONTINUE AND DO NOT RESOLVE WITH THE EX'S AND STRATEGIES HE HAS BEEN GIVEN. PATIENT IS AGREEABLE. UPON EXAM TODAY: PAUL UE ROM: WFL PAUL UE STRENGTH: 5/5. Cervical Mvmt Loss: Flex: NIL Pro: NIL Ext: MIN Ret: MOD RSB: MOD LSB: MOD R Rot: MOD L Rot: MIN PATIENT DENIES NECK PAIN WITH CERVICAL ROM TESTING ALL PLANES TODAY. HEAD PAIN BRIEFLY WENT AWAY AFTER NECK ROM TESTING AND THEN CAME BACK WHILE SITTING SLOUGHCED ON TREATMENT TABLE WITHOUT BACK SUPPORT. HEAD SX'S DECREASE WITH ACTIVE POSTURE CORRECTION AND ABOLISHED IN SITTING IN CHAIR WITH LUMBAR SUPPORT (TOWEL ROLL). Goals Goal 1:: PATIENT WILL REPORT AT LEAST 25% DECREASED HEAD AND NECK PAIN TO EASE ADL'S. Goal Progress: Goal Met Goal 2:: PATIENT WILL DEMONSTRATE INCREASED PAINFREE CERVICAL ROM IN ALL AFFECTED PLANES TO EASE ADL'S. Goal Progress: Progressing Goal 3:: PATIENT WILL DEMONSTRATED PROPER POSTURE CONTROL THROUGHOUT PT SESSION TO SHOW IMPROVED STRENGTH. Goal Progress: Progressing Goal 4:: PATIENT WILL BE INDEP WITH HEP FOR CONTINUED IMPROVEMENT ONCE FORMAL PHYSICAL THERPAY CONCLUDES. Goal Progress: Goal Met Plan Plan: D/C TO HEP AND FOLLOW UP WITH DR. GREER FOR HEADACHE NEEDED. PATIENT AGREEABLE. D/C Information d/c sentence: If there are questions or concerns regarding this patient's physical therapy, please feel free to call me at [phone]. Thank you for the referral of thispatient. Sincerely, Blanquita Diamond, PT, Cert MDT Balance/Gait/Functional tests Balance/Special Test Scores Oswestry Neck Score: 1 Improvement % Improvement: 70 <Electronically signed by Blanquita Diamond PT, Cert. MDT> 04/09/23 1423 CC: Dr. Jose Greer MD ~ YOUSIF Signed [facility] Work Phone: 1(816) 908-400708-02-2023 Discharge summary Author Dilan Vance [facility] September 19, 2022 9:38am Note Date/Time September 19, 2022 8:0 2am [facility] Medical Records Department [address] [place] [address] Instructions for Home/Discharge Instructions 09/19/22 0802 MR#: [id number] Acct: [id number] Name: ISAI SOLORIO Rep #:[id number] : 1950 71 From: Dilan Vance MD PCP: Dr. Jose Greer MD Status: REG [facility] Discharge Instructions Diet Discharge Diet: No restrictions Activity Discharge Activity: Return to Normal Activity and May Not Drive (while taking narcotic pain medications.) Dressing / Incision Call your doctor if you observe: Fever of 101 or Higher Follow Up Care Please Follow Up With: Dilan Vance MD When: Call [phone] for an appointment Test Results: Test results from this visit will be discussed in further detail at your follow- up appointment, if applicable. Discharge Plan Admission Primary Reason for Your Visit: TURBT Attending Provider: Dilan Vance Primary Care Provider: oJse Greer Instructions Patient Instructions: Bladder Cancer TUR, Transurethral Bladder Tumor Dc Discharge Orders/Prescriptions Prescriptions: New ciprofloxacin HCl [Cipro] 500 mg tablet 500 mg PO BID Qty: 10 0RF Continued lisinopril 40 mg tablet 40 mg PO DAILY Patient Comments: TAKE 1 TABLET BY MOUTH EVERY DAY atorvastatin 10 mg tablet 10 mg PO DAILY Patient Comments: TAKE 1 TABLET BY MOUTH EVERY DAY krill oil [id number] mg capsule 1 cap PO DAILY PROSTATE ADVANCED 3 tab PO DAILY cholecalciferol (vitamin D3) [Vitamin D3] 125 mcg (5,000 unit) tablet 125 mcg PO DAILY VISION ESSENTIAL ULTRA 1 cap PO DAILY Referrals / Follow Up: Jose Greer MD [Primary Care Provider] - Dilan Vance MD [Med Staff - Active Staff] - Disposition Disposition (needs filled in before D/C Order can be placed): Home, Self Care 09/19/22 0938<Electronically signed by Dilan Vance MD>Dilan Vance MD CC: Dr. Jose Grere MD ~ Signed [facility] Work Phone: 1(532) 229-414408-02-2023 Procedure [facility] 09-19-2022 History and physical note Author Dilan Vance [facility] September 19, 2022 8:02am Note Date/Time September 19, 2022 8:0 2am [facility] Medical Records Department [address] [place] [address] History & Physical Exam 09/19/22 08 MR#: [id number] Acct: [id number] Name: ISAI SOLORIO Rep #:[id number] : 1950 71 From: Dilan Vance MD PCP: Dr. Jose Greer MD Status: PRE [facility] Location: [facility] History and Physical Date of Admission: 09/19/22 CC/HPI: 71 year old male with history of prostate cancer and hematuria presents for follow up Prostate cancer diagnosed in 2019: [place] 6 (3+3), active surveillance. CurrentPSA is 6.39 In the beginning of July he had hematuria, then noticed some discharge after urination Symptoms improved on their own and he has not noticed any hematuria since then Denies any abdominal and back pain, denies burning with urination Currently having intermittent aches in his testicles. When he urinates it feels like something is pulling on his testicles and he gets a pinching feeling CT scan done on 08/06/22 readings showed: calcified right middle lobe nodule, 3cmright pericardial density mass/cyst, 3cm aphasic cyst in lateral aspect of left kidney, mild circumferential thickening of the bladder wall could be due to under distension, and prominent prostate. Will get a cysto today ALLERGIES: None MEDICATIONS: Atorvastatin Calcium 10 mg tablet Lisinopril 40 mg tablet tablet Notes: OTC eye drops. Had both covid vaccines PAST SURGICAL HISTORY: Colonoscopy - about 2019 Hernia Repair Pneumococcal Vaccine Admin Prostate Needle Biopsy - 2020 Transrectal Biopsy US - 2019 PAST MEDICAL HISTORY: Elevated prostate specific antigen [PSA] - 07/31/2022, - 01/30/2022, - 08/01/2021, - 01/24/2021, - 2019 Gross hematuria - 07/31/2022 Malignant neoplasm of prostate, Right - 07/31/2022, Right, - 01/30/2022, Right, - 08/01/2021, Right, - 01/24/2021, Right, - 2019 ? Histology/Primary Site: Adenocarcinoma, no subtype, low grade (morphologic abnormality), Malignant neoplasm of prostate ? Fab Score: 6 ? Clinical Staging: [id number], Stage I, Staged by: Managing physician ? Behaviour, Grade: Malignant, primary site ? Laterality: Unilateral ? Provider at the office diagnosed the cancer Benign prostatic hyperplasia without lower urinary tract symptoms - 08/01/2021, - 01/24/2021, - 2019 Essential (primary) hypertension Mixed hyperlipidemia Unspecified hearing loss, unspecified ear Unspecified osteoarthritis, unspecified site Unspecified visual loss [facility] Notes: eye problems, seeing a retinal specialist. Immunizations: None FAMILY HISTORY: None SOCIAL HISTORY: Marital Status: Single Preferred Language: Belgian; Ethnicity: Not Or ; Race: White Current Smoking Status: Patient has never smoked. Tobacco Use Assessment Completed: Used Tobacco in last 30 days? Does not use smokeless tobacco. Social Drinker. Does not use drugs. Drinks 3 caffeinated drinks per day. Has not had a blood transfusion. REVIEW OF SYSTEMS: Constitutional: Patient denies fever, chills, weight loss, and weight gain. Cardiovascular: Patient denies pacemaker/defib, irregular heartbeat, chest pains, and swollen ankles. Respiratory: Patient denies shortness of breath, wheezing, oxygen, and cpap machine. Genitourinary: Patient denies frequent urination, urinary retention, get up at night to void, urinary incontinence, painful urination, blood in the urine, frequent uti's, history of stones, difficulty starting stream, weak stream/scanty, and bedwetting. VITAL SIGNS: 08/13/2022 02:51 PM Weight 207 lb / 93.89 kg Height 71 in / 180.34 cm BP 122/70 mmHg BMI 28.9 kg/m? - BMI Counseling was provided. PHYSICAL EXAM: Constitutional: Well-nourished. No physical deformities. Normally developed. Good grooming. Neck: Neck symmetrical, not swollen. Normal tracheal position. Respiratory: No labored breathing, no use of accessory muscles. Cardiovascular: Normal temperature, normal extremity pulses, no swelling, no varicosities. Lymphatic: No enlargement of neck, axillae, groin. Skin: No paleness, no jaundice, no cyanosis. No lesion, no ulcer, no rash. Neurologic / Psychiatric: Oriented to time, oriented to place, oriented to person. No depression, no anxiety, no agitation. Gastrointestinal: No mass, no tenderness, no rigidity, non obese abdomen. Eyes: Normal conjunctivae. Normal eyelids. Ears, Nose, Mouth, and Throat: Left ear no scars, no lesions, no masses. Right ear no scars, no lesions, no masses. Nose no scars, no lesions, no masses. Normal hearing. Normal lips. Scrotum: No lesions. No edema. No cysts. No warts. Musculoskeletal: Normal gait and station of head and neck. Epididymides: Right: no spermatocele, no masses, no cysts, no tenderness, no induration, no enlargement. Left: no spermatocele, no masses, no cysts, no tenderness, no induration, no enlargement. Testes: No tenderness, no swelling, no enlargement left testes. No tenderness, no swelling, no enlargement right testes. Normal location left testes. Normal location right testes. No mass, no cyst, no varicocele, no hydrocele left testes. No mass, no cyst, no varicocele, no hydrocele right testes. Urethral Meatus: Normal size. No lesion, no wart, no discharge, no polyp. Normal location. Penis: Circumcised, no warts, no cracks. No dorsal Peyronie's plaques, no left corporal Peyronie's plaques, no right corporal Peyronie's plaques, no scarring, no warts. No balanitis, no meatal stenosis. Complexity of Data: Source Of History: Patient Lab Test Review: PSA Records Review: Previous Patient Records Urine Test Review: Urinalysis X-Ray Review: C.T. Abdomen/Pelvis: Reviewed Films. Reviewed Report. Discussed With Patient. 07/23/22 01/23/22 07/26/21 07/25/21 01/18/21 07/14/20 01/18/20 07/30/19 PSA Total PSA 6.39 ng/mL 5.47 ng/mL 5.49 ng/mL 5.49 ng/mL 5.36 ng/mL 5.26 ng/mL 5.00 ng/mL 5.30 Notes Order Date: 01/31/22 Order Info: [id number] - CMP Order Info: [id number] - LIPID DR GREER ORDERED CMP AND LIPID DR VANCE ORDERED PSAD [facility] [address] [place], [place], [id number] This test was performed using the TPSA assay method for the Dimension chemistry system. Values obtained with different assay methods cannot be used interchangably. When changing PSA assays in the course of monitoring a patient, additional sequential testing should be carried out to confirm baseline values. [facility] [address] [place], [place], [id number] This test was performed using the TPSA assay method for the Dimension chemistry system. Values obtained with different assay methods cannot be used interchangably. When changing PSA assays in the course of monitoring a patient, additional sequential testing should be carried out to confirm baseline values. [facility] [address] [place], [place], [id number] This test was performed using the TPSA assay method for the Dimension chemistry system. Values obtained with different assay methods cannot be used interchangably. When changing PSA assays in the course of monitoring a patient, additional sequential testing should be carried out to confirm baseline values. [facility] [address] [place], [place], [id number] This test was performed using the TPSA assay method for the Dimension chemistry system. Values obtained with different assay methods cannot be used interchangably. When changing PSA assays in the course of monitoring a patient, additional sequential testing should be carried out to confirm baseline values. [facility] [address] [place], [place], [id number] This test was performed using the TPSA assay method for the Dimension chemistry system. Values obtained with different assay methods cannot be used interchangably. When changing PSA assays in the course of monitoring a patient, additional sequential testing should be carried out to confirm baseline values. [facility] [address] [place], [place], [id number] This test was performed using the TPSA assay method for the Dimension chemistry system. Values obtained with different assay methods cannot be used interchangably. When changing PSA assays in the course of monitoring a patient, additional sequential testing should be carried out to confirm baseline values. [facility] [address] [place], [place], [id number] This test was performed using the TPSA assay method for the Dimension chemistry system. Values obtained with different assay methods cannot be used interchangably. When changing PSA assays in the course of monitoring a patient, additional sequential testing should be carried out to confirm baseline values. PROCEDURES: Flexible Cystoscopy - 55279 Risks, benefits, and some of the potential complications of the procedure were discussed at length with the patient including infection, bleeding, voiding discomfort, urinary retention, fever, chills, sepsis, and others. All questions were answered. Informed consent was obtained. Antibiotic prophylaxis was given. Sterile technique and intraurethral analgesia were used. Meatus: Normal size. Normal location. Normal condition. Urethra: No strictures. External Sphincter: Normal. Verumontanum: Normal. Prostate: Obstructing. Moderate hyperplasia. Bladder Neck: Non-obstructing. Ureteral Orifices: Normal location. Normal size. Normal shape. Effluxed clear urine. Bladder: 2 1/2 cm tumor. Solitary tumor. No trabeculation. Normal mucosa. No stones. Given antibiotic 1 dose per protocol ASSESSMENT: ICD-10 Details 1 Gross hematuria - R31.0 Acute, Systemic Symptoms 2 Malignant neoplasm of prostate - C61 Chronic, Stable 3 Elevated prostate specific antigen [PSA] - R97.20 Chronic, Stable PLAN: Document Letter(s): Created for Patient: Clinical Summary Notes: Reviewed CT scan with patient and educated him on results. He was referred to cardiology for pericardial findings. Educated patient that on the CT scan there is a spot in the bladder that could be a tumor and needs to be further evaluated, he will get a cysto done in office today, which showed and tumor base of bladder. Set up for TURBT medium at [facility] with mitomycin C 09/19/22 0802 <Electronically signed by Dilan Vance MD> Cosigner Signature (if applicable): CC: Dr. Jose Greer MD; Dr. Dilan Vance MD~ Signed [facility] Work Phone: 1(499) 859-468507-07-2023 NoteHNO ID: [id number] Author: Jose Luis Anderson MD Service: ? Author Type: Physician Type: [...] I10 Continue care with primary care physician Jose Luis Anderson MD I have confirmed and edited as [...] questions about the findings, diagnosis, and treatment options.[facility]07-07-2023 History of Present illness Narrative* Jose Luis Anderson MD - 08/24/2022 10:21 AM EDT ASSESSMENT/PLAN: 1. Combined forms of age-related cataract [...] I10 Continue care with primary care physician Jose Luis Anderson MD I have confirmed and edited as necessary the relevant ophthalmic history, review of systems, surgical history, and ophthalmological examination findings as obtained by the ophthalmic technical staff.I have seen and examined Isai Solorio. I have discussed the examination findings, diagnosis, and treatment options with Isai Solorio and/or his family. I have also reviewed and agree with the assessment and plan as stated above and agree with all its relevant components. I gave the patient the opportunity to ask questions about the findings, diagnosis, and treatment options. documented in this encounterAs[facility]07-[facility] Discharge summary Author Lew Begum [facility] August 23, 2022 10:15am Note Date/Time August 23, 2022 8:16a m [facility] Medical Records Department [address] [place] [id number] Emergency Department Summary 08/23/22 MR#: [id number] Acct: [id number] Name: ISAI SOLORIO Rep #:[id number] : 1950 71 From: Lew Begum MD PCP: Dr. Jose Greer MD Status: REG ER Location: ED HPI History of Present Illness Chief Complaint: Complaint Informant: patient Narrative Narrative: Patient presents with urinary symptoms. Patient states that beginning of July he had some blood in the urine. He is noton any anticoagulation including no baby aspirin. He saw Dr. Vance who did a CAT scan of the abdomen. I reviewed this outpatient CT study. It showed thickening of the bladder. He had a cystoscopy a little over a week ago. Biopsy showed some bladder cancer. He has surgery scheduled for the first few days of September. Ever since he has had the cystoscopy, he has had progressively more difficulty passing urine. He states he goes frequently and dribbles. It has been burning ever since the procedure. He thought the burning would go awaybut it has not. No fevers. No chills. No nausea vomiting. He is not having blood in the urine anymore. He is not having pain in the bladder but he still feels like he does not fully empty. He also does have a history of BPH and localized prostate cancer that is being watched. [facility] Medical History (Updated 08/23/22 @ 10:[address] Lew Begum MD) Prostate CA Home Medications cephalexin 500 mg capsule 500 mg PO Q8H #30 CAPSULES 08/23/22 [Rx Last Taken Unknown] Allergy/AdvReac Type Severity Reaction Status Date / Time Seasonal Allergies: Uncoded Allergy Mild Other Verified 08/23/22 07:57 Social History Smoking Status: Former smoker ROS ROS ED ROS Narrative A complete review of systems was performed and is negative except as documented in the history of present illness. Some specific details below. Constitutional: No recent fevers or chills. ENT: No difficulty swallowing. No swelling. No pain. No GERD. CV: No chest pain or palpitations. No lightheadedness or near syncope. Respiratory: No dyspnea. No hemoptysis. No difficulty taking breaths. GI: He is eating and drinking and moving his bowels normally. No nausea. : See history of present illness Musculoskeletal: No recent trauma. No pains. No back pains or flank pains. Skin: No rash. Nondiaphoretic. Neuro: No weakness or numbness. Endocrine: No polyuria or polydipsia. EXAM Physical Exam Narrative Exam Narrative: CONSTITUTIONAL: Patient is nontoxic in appearance. The patient looks comfortable. HEENT: No notable trauma. Mucous membranes moist. No sinus tenderness. No indication of pain with swallowing. EYES: No conjunctival injection. No proptosis. CARDIOVASCULAR: Regular rate. Regular rhythm. No notable murmur. No JVD. RESPIRATORY: No respiratory distress. Breathing is unlabored. No wheezes. No rhonchi. No rales. No pain with a deep breath. GASTROINTESTINAL: Not distended. Bowel sounds are normal. No tenderness. No guarding. No rebound. No palpable mass. No bruit. I am not able to definitivelyfeel an enlarged bladder. GENITOURINARY: No tenderness over the bladder. No CVA tenderness. No inguinal swelling or sign of hernia. MUSCULOSKELETAL: Atraumatic. No peripheral edema. No cord. No tenderness along the deep venous system. No asymmetry. NEUROLOGICAL: Patient is alert and appropriate. No focal deficit is appreciated. SKIN: No noted rashes. No diaphoresis. No pallor or petechiae. PSYCHIATRIC: Patient is calm. Mood is appropriate. Const Vital Signs: 08/23/22 07:52 Temperature 96.7 F L Temperature Source Temporal Pulse Rate 87 Respiratory Rate 18 Blood Pressure 159/90 H Blood Pressure Mean 113 Pulse Ox 98 Oxygen Delivery Method Room Air MDM MDM MDM Narrative Medical decision making narrative: Patient had a bladder scan of only about 138 cc. This was scanned multiple times and all came up with in about 10 or 15 cc of that reading. He then went to the bathroom and just urinated 100 cc. So it appears as though he is emptying his bladder well. Since he has no pressure no distention no palpable bladder at this point I am not putting in a catheter. Patient has gone to the bathroom well. He states he has not been urinating thiswell in a while. Patient CBC showed minimally low hemoglobin which is nonspecific. His white count is normal. Patient's electrolytes are normal other than a trace elevation of glucose at 110. Renal function is preserved. Patient's urinalysis is cloudy with 10-25 white cells. Considering he has some dysuria urgency frequency and this white cell finding in his urine, we will treat him. I have also sent off a culture. If he develops high fevers vomitingtrouble urinating he should return. But since he is passing urine well I do notthink he needs a catheter at this time. He will follow-up with his urologist asscheduled. Lab Data Attestation: I reviewed the patient's lab results. Labs: Laboratory Results - last 24 hr 08/23/22 08/23/22 08:20 08:40 WBC 8.3 RBC 4.32 L Hgb 12.8 L Hct 37.8 L MCV 87.5 MCH 29.6 MCHC 33.9 RDW Std Deviation 41.0 RDW Coeff of Zane 12.8 Plt Count 300 MPV 9.0 Immature Gran % (Auto) 0.500 Neut % (Auto) 71.4 H Lymph % (Auto) 13.7 L Kleberg % (Auto) 10.2 H Eos % (Auto) 3.4 Baso % (Auto) 0.8 Absolute Neuts (auto) 6.0 Absolute Lymphs (auto) 1.14 Nucleated RBC % 0 Differential Comment SCANNED Sodium 140 Potassium 3.5 Chloride 104 Carbon Dioxide 27.0 Anion Gap 9 BUN 6 L Creatinine 0.75 Estim Creat Clear Calc 71.99 Est GFR (MDRD) Af Amer 132 Est GFR (MDRD) Non-Af 109 BUN/Creatinine Ratio 8.0 L Glucose 110 H Calcium 8.7 Urine Color Yellow Urine Clarity Sl. Cloudy Urine pH 7.0 Ur Specific [place] 1.010 Urine Protein 30 H Urine Glucose (UA) Normal Urine Ketones Negative Urine Occult Blood 25 H Urine Nitrite Negative Urine Bilirubin Negative Urine Urobilinogen 1 H Ur Leukocyte Esterase 25 H Urine RBC 0-5 SEEN Urine WBC 10-25 SEEN Ur Squamous Epith Cells 0 SEEN Urine Bacteria RARE Urine Mucus 0 SEEN Discharge Plan Triage Chief Complaint: Complaint ED Provider: Lew Begum Dx/Rx/DC Orders Clinical Impression: Urinary tract infection Instructions: ED Urinary Tract Infections in Men Prescriptions: New cephalexin [cephalexin] 500 mg capsule 500 mg PO Q8H Qty: 30 0RF Primary Care Provider: Jose Greer Referrals: Jose Greer MD [Primary Care Provider] - Dilan Vance MD [Med Staff - Active Staff] - 5-7 Days Disposition Disposition: Home, Self Care What to do if you have Problems For any increased pain, shortness of breath, bleeding, nausea or vomiting, chestpain, or any unexpected problems, contact your Primary Care Provider. Call [facility] ([phone]) or report to the closest Emergency Room. Call 911 if necessary. 08/23/22 1015 <Electronically signed by Lew Begum MD> Cosigner Signature (if applicable): CC: Dr. Jose Greer MD ~ Signed [facility] Work Phone: 1(722) 210-219906-05-2023 NoteHNO ID: [id number] Author: Jose Luis Anderson MD Service: ? Author Type: Physician Type: [...] E78.00 Continue care with primary care physician Jose Luis Anderson MD I have confirmed and edited as [...] questions about the findings, diagnosis, and treatment options.[facility]06-05-2023 Instructions* Patient Instructions * Jose Luis Anderson MD - 07/23/2022 11:58 AM EDT Begin medications as directed: Current Ophthalmic Meds fluorometholone (FML LIQUID FILM) 0.1 % ophthalmic suspension Use 1 Drop in the left eye three times daily. Systane Complete Artificial Tears - Use 1 Drop into both eyes three times a day. If you have any questions please contact our office at [phone]. After office hours or on the weekend, please call Dr. Anderson on his cell phone at [phone]. documented in this encounterAsht[facility]ula [facility]06-05-2023 History of Present illness Narrative* Jose Luis Anderson MD - 07/23/2022 11:51 AM EDT ASSESSMENT/PLAN: 1. Combined forms of age-related cataract [...] E78.00 Continue care with primary care physician Jose Luis Anderson MD I have confirmed and edited as necessary the relevant ophthalmic history, review of systems, surgical history, and ophthalmological examination findings as obtained by the ophthalmic technical staff.I have seen and examined Isai Solorio. I have discussed the examination findings, diagnosis, and treatment options with Isai Sloorio and/or his family. I have also reviewed and agree with the assessment and plan as stated above and agree with all its relevant components. I gave the patient the opportunity to ask questions about the findings, diagnosis, and treatment options. documented in this encounterAsht[facility]ula [facility]12-19-2022 NoteHNO ID: [id number] Author: Jose Luis Anderson MD Service: ? Author Type: Physician Type: [...] Continue to monitor with primary care physician. Jose Luis Anderson MD I have confirmed and edited as [...] questions about the findings, diagnosis, and treatment options.[facility]12-19-2022 Instructions* Patient Instructions * Jose Luis Anderson MD - 02/05/2022 11:18 AM EST If you have any questions please contact our office at [phone]. After office hours or on the weekend, please call Dr. Anderson on his cell phone at [phone]. documented in this encounterAshtabula [facility]12-19-2022 History of Present illness Narrative* Jose Luis Anderson MD - 02/05/2022 10:31 AM EST ASSESSMENT/PLAN: 1. Combined forms of age-related cataract [...] Continue to monitor with primary care physician. Jose Luis Anderson MD I have confirmed and edited as necessary the relevant ophthalmic history, review of systems, surgical history, and ophthalmological examination findings as obtained by the ophthalmic technical staff.I have seen and examined Isai Palmer Solorio. I have discussed the examination findings, diagnosis, and treatment options with Isai Solorio and/or his family. I have also reviewed and agree with the assessment and plan as stated above and agree with all its relevant components. I gave the patient the opportunity to ask questions about the findings, diagnosis, and treatment options. documented in this encounterAshtabula [facility]10-05-2020 History of Past illness Narrative* Problem Noted Date Resolved Date Status post cataract extract ion and insertion of intraocular lens of right eye 11/23/2019 08/24/2022 Combined forms of age-related cataract of right eye 09/19/2019 11/23/2019 documented as of this encounter (statuses as of 08/24/2022) [facility]08-[facility] History of Past illness Narrative* Problem Noted Date Resolved Date Combined forms of age-related cataract of right eye 09/19/2019 11/23/2019 documented as of this encounter (statuses as of 02/05/2022) [facility]08[facility] of Past illness Narrative* Problem Noted Date Resolved Date Combined forms of age-related cataract of right eye 09/19/2019 11/23/2019 documented as of this encounter (statuses as of 07/23/2022) [facility] CenterEvaluation noteNo assessment information availableAultman [facility] Work Phone: Evaluation note* Diagnosis Combined forms of age-related cataract of left eye- Primary Other and combined forms of senile cataract Pseudophakia of right eye Lens replaced by other means 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 Essential hypertension Unspecified essential hypertension Hypercholesteremia Pure hypercholesterolemia documented in this encounter [facility]* Diagnosis Combined forms of age-related cataract of left eye- Primary Other and combined forms of senile cataract Irregular astigmatism, left eye History of radial keratotomy High myopia, bilateral Myopia 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 Essential hypertension Unspecified essential hypertension Hypercholesteremia Pure hypercholesterolemia documented in this encounter [facility]* Diagnosis Combined forms of age-related cataract of left eye- Primary Other and combined forms of senile cataract Irregular astigmatism of left eye Irregular astigmatism History of radial keratotomy Pseudophakia, right eye Lens replaced by other means High myopia, bilateral Myopia Essential hypertension Unspecified essential hypertension [facility] Additional Instructions [facility] Work Phone: Summary Purpose Family History No Family History Records FoundNo Family History Records FoundNo Family History Records FoundNo Family History Records Found Advance Directives No Advanced Directives Records Found Advance Directive Response Recorded Date/ Time Living Will No August 23, 2022 8 :33am Power of Roof Bolter Operator No August 23, 2022 8:33am Advance Directive Response Recorded Date/ Time Living Will No September 12, 2022 9:09am Power of Roof Bolter Operator No September 12 9:09am Advance Directive Response Recorded Date/ Time Living Will No September 12, 2022 8:09am Power of Roof Bolter Operator No September 12 8:09am Procedure Findings Note Post Operative Note: Post-Pr ocedure Diagnosis: 1. Combined Form Age Related Cataract Right Eye 2. Regular Astigmatism Right Eye 3. Status Post RK (Radial Keratotomy) 12 incisions Right eye Procedure: 1. Cataract Extraction with Toric Intraocular Lens Implant Right eye with sutures to close leaking wound Surgeon: Jose Luis Anderson MD Resident/Fellow/Other Wool Sorter: None Estimated Blood Loss (mL): none Specimen: [...] on Sat02/05/22 at 1030, Until Sat02/05/22 at 2228, Administer for dilation PROTECT FROM LIGHT Given 02/05/2022 10:30 AM EST 1 Drop proparacaine 0.5 % 1 Drop (ALCAINE) 1 Drop, BOTH EYES, DIRECTED, Starting on Sat02/05/22 at 1030, Until Sat02/05/22 at 222, Administer for pneumo tonometry, tonopen tonometry, or [...] Given 02/05/2022 10:30 AM EST 1 Drop Chief Complaint and Reason for Visit Chief Complaint 2 DRS/ 2 ORDERS Chief Complaint 2 DRS/ 2 ORDERS GROSS HEMATURIA Chief Complaint 2 DRS/ 2 ORDERS GROSS HEMATURIA gu complaint Chief Complaint 2 DRS/ 2 ORDERS GROSS HEMATURIA gu complaint TURBT Chief Complaint 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 RX HERE HEADACHES DIZZINESS Additional Source Comments (unrecognized sect ion and content) No Status Records FoundNo Status Records FoundNo Status Records FoundNo Status Records Found INFORMATION SOURCE (unrecogn ized section and content) DATE CREATED AUTHOR 10/28/2019 [facility] DATE CREATED AUTHOR AUTHOR'S ORGANIZ ATION 11/02/2019 [facility] DATE CREATED AUTHOR AUTHOR'S ORGANIZ ATION 08/25/2022 [facility] DATE CREATED AUTHOR AUTHOR'S ORGANIZ ATION 04/03/2024 [facility] Goals (unrecognized section and content) Goals may be documented in a n alternate sectionGoals may be documented in an alternate sectionGoals may be documented in an alternate sectionGoals may be documented in an alternate sectionGoals may be documented in an alternate sectionGoals may be documented in an alternate sectionGoals may be documented in an alternate sectionGoals may be documented in an alternate sectionGoals may be documented in an alternate sectionGoals may be documented in an alternate sectionGoals may be documented in an alternate sectionGoals may be documented in an alternate section Source Comments (unrecognize d section and content) In the event this informatio n is protected by the [facility] Confidentiality of Alcohol and Drug Abuse Patient Records regulations: The Federal rules restrict any use of the information to criminally investigate or prosecute any alcohol or drug abuse patient.[facility] the event this information is protected by the Federal Confidentiality of Alcohol and Drug Abuse Patient Records regulations: The Federal rules restrict any use of the information to criminally investigate or prosecute any alcohol or drug abuse patient.[facility] the event this information is protected by the Federal Confidentiality of Alcohol and Drug Abuse Patient Records regulations: The Federal rules restrict any use of the information to criminally investigate or prosecute any alcohol or drug abuse patient.[facility] Reason for Visit (unrecogniz ed section and content) Reason Comments Glare Glare and starburst around lights at night left eye Cataract Follow Up Left eye Reason Comments Blurred Vision Left Eye Glare Left eye Difficulty Reading Left Eye Reason Comments Cataract Follow Up Left eye Care Teams (unrecognized sec tion and content) Woodyard Operator Relationship Specialty Start Date End Date Chela Greer MD [address] [place] [id number] PCP - General Family Medicine 09/19/19 Team Status: Active Member Role Status Dates Dr. Jose Greer MD Family Provider Active Dr. Jose Greer MD Primary Care Provider Activ e Team Status: Inactive Member Role Status Dates Dr. Jose Greer MD Primary Care Provider, Attending Provider, Referring Provider Active Dr. Dilan Vance MD Other Provider Active Woodyard Operator Relationship Specialty Start Date End Date Chela Greer MD [address] [place] [address] [facility] 09/19/19 Team Status: Inactive Member Role Status Dates Dr. Jose Greer MD Primary Care Provider Activ e Dr. Dilan Vance MD Attending Provider, Referr ing Provider Active Team Status: Inactive Member Role Status Dates Dr. Jose Greer MD Primary Care Provider Activ e Dr. Lew Begum MD Emergency Provider Active Woodyard Operator Relationship Specialty Start Date End Date Chela Greer MD [address] [place] [id number] [facility] 09/19/19 Team Status: Inactive Member Role Status Dates Dr. Jose Greer MD Primary Care Provider Activ e Dr. Lew Begum MD Attending Provider, Emergency Provider Active Team Status: Inactive Member Role Status Dates Dr. Jose Greer MD Primary Care Provider, Atte nding Provider Active Team Status: Inactive Member Role Status Dates Dr. Jose Greer MD Primary Care Provider, Attending Provider, Referring Provider Active Team Status: Active Member Role Status Dates Dr. Jose Greer MD Primary Care Provider, Attending Provider, Referring Provider Active Team Status: Active Member Role Status Dates Dr. Jose Greer MD Primary Care Provider, Atte nding Provider Active Team Status: Inactive Member Role Status Dates Dr. Jose Greer MD Primary Care Provider Activ e Dr. Dilan Vance MD Attending Provider Active Team Status: Active Member Role Status Dates Dr. Jose Greer MD Primary Care Provider Activ e Dr. Thom Craft MD Attending Provider Active FOR RECORDS PERTAINING TO PATIENTS WHO ARE [...] BE BASED ON THE PRIMARY CLINICAL RECORDS. [facility] provides no warranty or guarantee of the accuracy or completeness of information in this document.
== END | disposition home or self-care (01) ==
LOC: MFPLAB 09:33
PROVIDERS: PCP Family Medicine; Referring Provider Family Medicine; Visit Provider Family Medicine
DX: E78.2 Mixed hyperlipidemia (principal)
CPT/HCPCS: 36415; 80053; 80061

== ENCOUNTER → 2024-09-14 | Outpatient (CLI) | payer MEDICARE, OTHER, SELFPAY ==
[2024-09-14 13:38] LABS: PSA,Total- Diagnostic 6.53 ng/mL (0.00-4.00)
== END | disposition home or self-care (01) ==
LOC: MFPLAB 10:43
PROVIDERS: PCP Family Medicine; Visit Provider Urology
DX: C61 Malignant neoplasm of prostate (principal)
CPT/HCPCS: 36415; 84153